=== PATIENT | female | born 1990 | race Caucasian/White ===

== ENCOUNTER 2017-11-25 13:33 | Emergency (ER) | payer MEDICAID, SELFPAY ==
[2017-11-25 13:33] VITALS: BP 163/107; PULSE 103; RESP 18; TEMP 36.4; O2SAT 96; BMI 65.2
[2017-11-25 13:51] LABS: Bedside Glucose 405 mg/dL (70-110)
[2017-11-25 14:34] LABS: Absolute Lymphocyte Count 1.82 X10^3/ul (0.83-4.51); Absolute Neutrophil Count 5.8 X10^3/uL (2.0-7.7); Basophil# 0.04 X10^3/uL; Basophil% 0.5 % (0-1); Eosinophil# 0.07 X10^3/uL; Eosinophils% 0.8 % (0-5); Hematocrit 42.5 % (37-47); Hemoglobin 14.7 g/dl (12.0-15.0); Lymphocyte # 1.82 X10^3/ul (4.0); Lymphocyte % 21.9 % (19-41); Mean Corp Hgb Conc 34.6 g/gl (32-36); Mean Corpuscular Hgb 30.7 pg (27.0-32.0); Mean Corpuscular Volume 88.7 fL (81-99); Mean Platelet Vol. 11.6 fl (6.2-12.0); Monocyte# 0.58 X10^3/uL; Neutrophil # 5.78 X10^3/uL (2.7-7.7); Neutrophil % 69.6 % (47-70); Platelet Count 198 K/mm3 (150-450); Red Blood Count 4.79 M/mm3 (4.2-5.4); White Blood Count 8.3 K/mm3 (4.4-11.0)
[2017-11-25 14:37] LABS: POSITIVE COUNT NO; POSITIVE DIFFERENTIAL NO; POSITIVE MORPHOLOGY NO
[2017-11-25] MEDS: 0.9% Normal Saline 1,000 ML 1000 ML IV (14:39)
[2017-11-25] MEDS: Ondansetron 4 MG/2 ML Vial IV (14:39)
[2017-11-25 14:41] LABS: Blood Gas Specimen Type VEN; Time Given 1425; VBG BASE EXCESS 3 mmol/L (-1.0-3.5); VBG Bicarbonate 27 mmol/L (22-26); VBG Oxygen Content 28 mmol/L (23-33); VBG PO2 65 mmHg (25-40); VBG SO2 93 % (50-70); VBG pCO2 39.8 mmHg (41-51); VBG pH 7.44 (7.32-7.42)
[2017-11-25 14:46] LABS: Anion Gap 9 (5-15); BUN 11 mg/dL (7-18); BUN/Creat Ratio 12.5 RATIO (10-20); Calcium,Total 9.6 mg/dL (8.5-10.1); Chloride 98 mmol/L (98-107); Creatinine, Serum 0.88 mg/dL (0.55-1.02); EST Glomerular Filtration Rate 82 mL/min (>60); Est Glom Filt Rate - Afr Amer 99 mL/min (>60); Estimated Creatinine Clearance 86.41 ml/min; Glucose 396 mg/dL (74-106); Potassium 3.9 mmol/L (3.5-5.1); Sodium Level 135 mmol/L (136-145)
[2017-11-25 14:56] LABS: Mucous, Urine 0 SEEN /hpf (<or=2+); White Blood Cells 0 SEEN /hpf (0-5)
[2017-11-25 14:57] LABS: Color, Urine Yellow (Yellow); Glucose, Dipstick 1000 mg/dl (Normal); Ketone-Dipstick 5 mg/dl (Negative); Leukocyte Esterase-Dipstick 25 /ul (Negative); Nitrite-Dipstick Negative (Negative); Occult Blood-Urine 150 /ul (Negative); Protein-Dipstick 30 mg/dl (Negative); Urine Bilirubin Dipstick Negative (Negative); Urine Clarity Clear (Clear); Urine Urobilinogen Normal (Normal)
[2017-11-25 15:09] LABS: Bacteria RARE /hpf (None Seen); Red Blood Cells-Urine 5-10 SEEN /hpf (0-5)
[2017-11-25 15:10] LABS: Squamous Epithelial Cells - UA 0-5 SEEN /hpf (5-10)
[2017-11-25] MEDS: Dicyclomine 10 MG Capsule 20 MG PO (15:13)
--- NOTE | 2017-11-25 16:28 | ED.VISSUMM ---
- ER Visit Summary Date of Service: 11/25/17 Chief Complaint: Nausea, vomiting and diarrhea with reported temperature 102.0?F and polyuria, polydipsia and frequency. History of Present Illness: The patient is a 27 F with history of diabetes on pills and insulin presents with fever, nausea, vomiting diarrhea. She denies any ocular, visual auditory symptoms. She denies rhinorrhea, postnasal drainage sore throat. She denies cough or shortness of breath. She denies chest discomfort. She denies dysuria or urgency. She denies hematuria. She denies black or maroon colored stool. Does complain of generalized weakness. Past surgical history remarkable for cholecystectomy and hysterectomy. She had hysterectomy secondary to cancer. Physical Examination: Patient is morbidly obese with a BMI of 65.3. Blood pressure elevated 163/107. Heart rate is 137. HEENT exam is remarkable dry mucosa. Heart is rapid and regular without murmur, gallop or rub. Lungs are clear to auscultation. Abdomen is soft nontender with slightly increased bowel sounds. She has no CVA tenderness noted. There is no skin lesions noted. Neuro exam is nonfocal. Please read written note for complete detail Test Results: See is normal. BMP is remarkable for glucose of 396 the normal CO2 and anion gap. Since patient was tachycardic and appeared tachypnic ABG was obtained which was unremarkable. UA reveals leukoesterase 25, blood 150, ketones 5 with 0 WBCs, 5-10 RBCs and no epithelial cells. There is 1+ bacteria however there is no nitrites or pyuria. Emergency Department Course and Treatment: Patient received 1 L of normal saline. I was informed after she attempted to drink water she is bit up the water. She did not vomit. She has not had any loose stools since she was here. She did receive Bentyl with no improvement. She reports no improvement with Zofran. Reglan is not available IVs since the hospital is out. Treatment Plan: Was reassessed at 1625. Her abdomen is benign. She complained of pain with depression of her skin 1-2 mm. She is crying with tears dripping down her face. Patient was informed since her blood work is unremarkable other than the elevated blood sugar for which she received insulin and her abdominal exam from a medical standpoint is benign the cause of her pain is unknown. She did not appear surprised when she was informed this. She has multiple visits for abdominal pain. Disposition: Discharged to home with prescription for Bentyl and follow-up with PCP Impression: 1. Abdominal pain with nausea, vomiting diarrhea 2. Sinus tachycardia documented on monitor 3. Mild dehydration 4. Hyperglycemia in known diabetic This note was generated with [employer] dictation software. It may contain incorrect words, spelling, and punctuation that were not noted in review of the chart prior to signing ED Disposition - Plan for ED Patient: Disposition: Home or Assisted Living Chief Complaint: Abd Pain Instructions: ED Abdominal Pain Unkn Cause, ED Vomiting Diarrhea Nonspecific Ad, ED Hyperglycemia Diabetic Prescriptions: Dicyclomine HCl [Bentyl] 20 mg PO ACHS #10 cap Referrals: Alejandra Cruz PA [Primary Care Provider] - 1-2 Days if not improving
--- NOTE | 2017-11-25 16:35 | ED.DCSUM_ITS ---
- ER Visit Summary Date of Service: 11/25/17 Chief Complaint: Nausea, vomiting and diarrhea with reported temperature 102.0? F and polyuria, polydipsia and frequency. History of Present Illness: The patient is a 27 F with history of diabetes on pills and insulin presents with fever, nausea, vomiting diarrhea. She denies any ocular, visual auditory symptoms. She denies rhinorrhea, postnasal drainage sore throat. She denies cough or shortness of breath. She denies chest discomfort. She denies dysuria or urgency. She denies hematuria. She denies black or maroon colored stool. Does complain of generalized weakness. Past surgical history remarkable for cholecystectomy and hysterectomy. She had hysterectomy secondary to cancer. Physical Examination: Patient is morbidly obese with a BMI of 65.3. Blood pressure elevated 163/107. Heart rate is 137. HEENT exam is remarkable dry mucosa. Heart is rapid and regular without murmur, gallop or rub. Lungs are clear to auscultation. Abdomen is soft nontender with slightly increased bowel sounds. She has no CVA tenderness noted. There is no skin lesions noted. Neuro exam is nonfocal. Please read written note for complete detail Test Results: See is normal. BMP is remarkable for glucose of 396 the normal CO2 and anion gap. Since patient was tachycardic and appeared tachypnic ABG was obtained which was unremarkable. UA reveals leukoesterase 25, blood 150, ketones 5 with 0 WBCs, 5-10 RBCs and no epithelial cells. There is 1+ bacteria however there is no nitrites or pyuria. Emergency Department Course and Treatment: Patient received 1 L of normal saline. I was informed after she attempted to drink water she is bit up the water. She did not vomit. She has not had any loose stools since she was here. She did receive Bentyl with no improvement. She reports no improvement with Zofran. Reglan is not available IVs since the hospital is out. Treatment Plan: Was reassessed at 1625. Her abdomen is benign. She complained of pain with depression of her skin 1-2 mm. She is crying with tears dripping down her face. Patient was informed since her blood work is unremarkable other than the elevated blood sugar for which she received insulin and her abdominal exam from a medical standpoint is benign the cause of her pain is unknown. She did not appear surprised when she was informed this. She has multiple visits for abdominal pain. Disposition: Discharged to home with prescription for Bentyl and follow-up with PCP Impression: 1. Abdominal pain with nausea, vomiting diarrhea 2. Sinus tachycardia documented on monitor 3. Mild dehydration 4. Hyperglycemia in known diabetic This note was generated with [employer] dictation software. It may contain incorrect words, spelling, and punctuation that were not noted in review of the chart prior to signing ED Disposition - Plan for ED Patient: Disposition: Home or Assisted Living Chief Complaint: Abd Pain Instructions: ED Abdominal Pain Unkn Cause, ED Vomiting Diarrhea Nonspecific Ad , ED Hyperglycemia Diabetic Prescriptions: Dicyclomine HCl [Bentyl] 20 mg PO ACHS #10 cap Referrals: Alejandra Cruz PA [Primary Care Provider] - 1-2 Days if not improving
[2017-11-25 16:55] VITALS: BP 148/85; PULSE 92; RESP 16; O2SAT 98
== END 2017-11-25 16:57 | disposition home or self-care (01) ==
PROVIDERS: Emergency Provider Emergency Medicine; Family Provider Physician Assistant; PCP Physician Assistant
DX: R10.9 Unspecified abdominal pain (principal); R11.2 Nausea with vomiting, unspecified; R19.7 Diarrhea, unspecified; R00.0 Tachycardia, unspecified; E86.0 Dehydration; E11.65 Type 2 diabetes mellitus with hyperglycemia; J34.89 Other specified disorders of nose and nasal sinuses; R50.9 Fever, unspecified; R21 Rash and other nonspecific skin eruption; F32.9 Major depressive disorder, single episode, unspecified; Z85.9 Personal history of malignant neoplasm, unspecified; E66.01 Morbid (severe) obesity due to excess calories; Z68.44 Body mass index [BMI] 60.0-69.9, adult; Z90.49 Acquired absence of other specified parts of digestive tract; Z90.710 Acquired absence of both cervix and uterus; Z87.891 Personal history of nicotine dependence; Z79.84 Long term (current) use of oral hypoglycemic drugs; Z79.899 Other long term (current) drug therapy
CPT/HCPCS: 80048; 81001; 82803; 82962; 85025; 96361; 96372; 96374; 99284; J7030; A4216; J2405

== ENCOUNTER 2017-12-21 16:33 | Emergency (ER) | payer MEDICAID, SELFPAY ==
[2017-12-21 16:35] VITALS: BP 162/94; PULSE 92; RESP 17; TEMP 37.1; O2SAT 93; BMI 65.0
[2017-12-21 16:46] LABS: Bedside Glucose 429 mg/dL (70-110)
[2017-12-21 17:16] LABS: Bacteria 0 SEEN /hpf (None Seen); Mucous, Urine 0 SEEN /hpf (<or=2+); Red Blood Cells-Urine 0 SEEN /hpf (0-5); White Blood Cells 0 SEEN /hpf (0-5)
[2017-12-21 17:25] LABS: Color, Urine Yellow (Yellow); Glucose, Dipstick 1000 mg/dl (Normal); Ketone-Dipstick 15 mg/dl (Negative); Leukocyte Esterase-Dipstick Negative /ul (Negative); Nitrite-Dipstick Negative (Negative); Occult Blood-Urine Negative /ul (Negative); Protein-Dipstick Negative (Negative); Urine Bilirubin Dipstick Negative (Negative); Urine Clarity Sl. Cloudy (Clear); Urine Urobilinogen Normal (Normal)
--- NOTE | 2017-12-21 17:36 | CT_ITS ---
STUDY: CT ABDOMEN AND PELVIS WITHOUT CONTRAST REASON FOR EXAM: Female, 27 years old. Left-sided abdominal pain and nausea. RADIATION DOSAGE (If Supplied By Facility): CTDIvol = ( 24.18 ) mGy, DLP = ( 1389.41 ) mGycm TECHNIQUE: Transaxial images were obtained from the dome of the diaphragm to the symphysis pubis without oral contrast, and without intravenous contrast. Sagittal and coronal images were reconstructed. Individualized dose optimization techniques were used for this CT. COMPARISON: CT of the abdomen and pelvis dated October 27, 2017. FINDINGS: The visualized lung bases are unremarkable. The visualized portions of the heart are within normal limits. There is decreased attenuation of the liver consistent with steatosis. There are surgical clips in the gallbladder fossa consistent with a prior cholecystectomy. There are multiple benign calcified granulomata of the spleen. There is diffuse atrophy of the pancreas. Normal bilateral adrenal glands. Normal right kidney. Normal left kidney. Normal visualized stomach. There is no evidence for dilated bowel, ascites or pneumoperitoneum. Small bowel has a grossly normal appearance. There are multiple colonic diverticula consistent with diverticulosis. There is non-visualization of the appendix. Normal abdominal aorta. Normal inferior vena cava. Normal retroperitoneum. Normal urinary bladder. There is absence of the uterus consistent with a prior hysterectomy. There is a small umbilical hernia containing fat. There is a wedge-shaped deformity of T11 that may result sequela multiple old compression fracture. There is multilevel degenerative disc disease of lower thoracic spine. CT/Abdomen/Pelvis without Cont IMPRESSION: 1. No CT evidence of acute intra-abdominal disease. 2. Hepatic steatosis. 3. Cholecystectomy and hysterectomy. 4. Mild colonic diverticulosis. Electronically Signed: Aurea Garrison MD at 18:52 EST , Service support ,
[2017-12-21 17:38] LABS: Absolute Lymphocyte Count 1.64 X10^3/ul (0.83-4.51); Basophil# 0.02 X10^3/uL; Basophil% 0.3 % (0-1); Eosinophil# 0.05 X10^3/uL; Eosinophils% 0.7 % (0-5); Hematocrit 43.6 % (37-47); Hemoglobin 14.7 g/dl (12.0-15.0); Lymphocyte # 1.64 X10^3/ul (4.0); Lymphocyte % 22.8 % (19-41); Mean Corp Hgb Conc 33.7 g/gl (32-36); Mean Corpuscular Hgb 30.4 pg (27.0-32.0); Mean Corpuscular Volume 90.1 fL (81-99); Mean Platelet Vol. 11.4 fl (6.2-12.0); Monocyte# 0.48 X10^3/uL; Monocyte% 6.7 % (0-10); Neutrophil # 4.98 X10^3/uL (2.7-7.7); Neutrophil % 69.2 % (47-70); Platelet Count 199 K/mm3 (150-450); RBC Distribution Width CV 13.3 % (11.6-14.6); RBC Distribution Width SD 43.4 fl (35.1-43.9); Red Blood Count 4.84 M/mm3 (4.2-5.4); White Blood Count 7.2 K/mm3 (4.4-11.0)
[2017-12-21] MEDS: 0.9% Normal Saline 1,000 ML 999 ML IV (17:38)
[2017-12-21 17:39] LABS: POSITIVE COUNT NO; POSITIVE DIFFERENTIAL NO; POSITIVE MORPHOLOGY NO
--- NOTE | 2017-12-21 17:39 | ED.DCSUM_ITS ---
- ER Visit Summary Date of Service: 12/21/17 Chief Complaint: Hyperglycemia History of Present Illness: The patient is a 27 F presents with elevated glucose of 530 at home. Diabetes diagnosis 2 months ago was placed on metformin , this has been increased since then to 1000 milligrams twice daily. States been there with left-sided abdominal pain for the past month with nausea. No vomiting. Have diarrhea since being on metformin. No recent antibiotics. Subjective fevers. No urinary symptoms. History of hysterectomy. Saw oncologist today, had a CT ordered for abdomen however due to her symptoms she came here. Complains of polydipsia and polyuria. Physical Examination: General: Alert and oriented ?3, obese female, no acute distress HEENT: Normocephalic, atraumatic. Moist mucosa membranes Neck: supple, nontender. Cardiovascular: Regular rate and rhythm, no murmurs Respiratory: Normal breath sounds, symmetric, no distress Abdomen: Soft, mild left-sided tenderness with no guarding or rebound, nondistended Extremities: Nontender, no edema, pulses intact ?4 Neuro: no focal neurological deficits. Test Results: BG T: 429. Labs noted glucose 421, anion gap was 11. UA noted glucose and ketones. Ketones small. CT abdomen and pelvis: No acute process. Old T11 thoracic fracture. Emergency Department Course and Treatment: Patient nontoxic. Glucose 429, recent diabetic. No vomiting. However due to abdominal pain, workup initiated. She given IV fluids, Zofran, fentanyl for pain control. CT shows no acute process. Glucose 421 in the lab, small ketones, however anion gap was normal. There was ketones in her urine. She is given fluids. She is trying oral fluids at home. Due to normal gap, not likely DKA. Discussed patient continue oral hydration. She does given 10 units of insulin, she given Tylenol for additional pain control. Should continue this at home. She will call her PCP office outpatient reevaluation further treatment for her hyperglycemia. Unknown etiology for abdominal pain at this time. Treatment Plan: [] Disposition: Discharge Impression: 1. Hyperglycemia with history of diabetes 2. Left-sided abdominal pain This note was generated with [employer] dictation software. It may contain incorrect words, spelling, and punctuation that were not noted in review of the chart prior to signing ED Disposition - Plan for ED Patient: Disposition: Home or Assisted Living Chief Complaint: Hyperglycemia Diagnosis: Hyperglycemia, Abdominal pain Instructions: ED Hyperglycemia Diabetic, ED Abdominal Pain Unkn Cause Referrals: Alejandra Cruz PA [Primary Care Provider] - 2 Days
[2017-12-21 17:42] VITALS: BP 165/70; PULSE 90; RESP 14; O2SAT 95
[2017-12-21 17:44] LABS: Anion Gap 11 (5-15); BUN 12 mg/dL (7-18); BUN/Creat Ratio 16.6 RATIO (10-20); Calcium,Total 9.2 mg/dL (8.5-10.1); Chloride 99 mmol/L (98-107); Creatinine, Serum 0.72 mg/dL (0.55-1.02); EST Glomerular Filtration Rate 102 mL/min (>60); Est Glom Filt Rate - Afr Amer 124 mL/min (>60); Estimated Creatinine Clearance 105.61 ml/min; Glucose 427 mg/dL (74-106); Sodium Level 134 mmol/L (136-145)
[2017-12-21 17:45] LABS: Squamous Epithelial Cells - UA 0-5 SEEN /hpf (5-10)
[2017-12-21] MEDS: fentaNYL 100 MCG/2 ML Ampul 50 MCG IV (17:46)
[2017-12-21] MEDS: Ondansetron 4 MG/2 ML Vial IV (17:46)
[2017-12-21 18:17] LABS: Pregnancy, Serum, hCG Quali. NEGATIVE Negative (0-9 Nonpreg)
[2017-12-21 18:27] VITALS: BP 125/51; PULSE 77; RESP 15; O2SAT 96
[2017-12-21 19:32] VITALS: BP 145/80; PULSE 85; RESP 14; O2SAT 96
[2017-12-21] MEDS: Acetaminophen 500 MG Tablet 1000 MG PO (19:39)
[2017-12-21 19:44] VITALS: BP 149/80; PULSE 82; RESP 14; O2SAT 96
== END 2017-12-21 19:48 | disposition home or self-care (01) ==
PROVIDERS: Emergency Provider Emergency Medicine; Family Provider Physician Assistant; PCP Physician Assistant
DX: E11.65 Type 2 diabetes mellitus with hyperglycemia (principal); R10.9 Unspecified abdominal pain; E66.9 Obesity, unspecified; K21.9 Gastro-esophageal reflux disease without esophagitis; Z86.79 Personal history of other diseases of the circulatory system; Z86.39 Personal history of other endocrine, nutritional and metabolic disease; Z85.42 Personal history of malignant neoplasm of other parts of uterus; Z90.710 Acquired absence of both cervix and uterus; Z79.84 Long term (current) use of oral hypoglycemic drugs; Z79.899 Other long term (current) drug therapy
CPT/HCPCS: 74176; 80048; 81001; 82009; 82962; 84703; 85025; 96361; 96372; 96374; 96375; 99284; J7030; A4216; J2405

== ENCOUNTER 2018-01-10 16:47 | Observation (INO) | payer MEDICAID, SELFPAY ==
--- NOTE | 2018-01-10 | CYSPIN_PTH ---
PATIENT: EVA SAUCEDO LOC: [facility] U#:[id number] AGE/SX: 27/F ROOM: [facility]312 RE01/10/[address]: Dr. Ramin Black MD : 1990 BED: 1 DIS: 01/16/2018 SPEC #: [id number] RECD: 01/11/18 08:10 STATUS: CLAIRE FLORY #: [id number] ALEXEY: 01/10/18 00:[address]: Augustine Stevenson DEPT: CYTOLOGY RECD BY: Stewart Walls ENTERED: 01/11/18 08:10 SP TYPE: CYSPIN FL OTHR DR: MD Alejandra Diaz PA Tissues: Cerebrospinal Fluid Procedures: Pap Stain (control) Special Stain Group II Cytospin Fluid HEADER OPERATION: Lumbar puncture PRE-OP DIAGNOSIS: Fever and headache TISSUE SUBMITTED: Cerebrospinal fluid for cytology DIAGNOSIS CYTOLOGY Cerebrospinal fluid for cytology (cytospins): Negative for malignant cells. AM:andreina 01/12/18 COMMENT The specimen is virtually acellular and contains blood. Clinical correlation is suggested. CYTOLOGY STUDY Slides are reviewed. CYTOLOGY GROSS Received is 1 ml of clear fluid labeled with the patient's name and and designated per the requisition as CSF. Submitted for cytology preparation. / 01/11/18 TC:5 CPT: 10880
[2018-01-10 16:48] VITALS: BP 130/91; PULSE 111; RESP 18; TEMP 36.9; O2SAT 97; BMI 58.6
--- NOTE | 2018-01-10 17:12 | RAD_ITS ---
STUDY: X-RAY CHEST REASON FOR EXAM: Female, 27 years old. Chest pain, headache. TECHNIQUE: Single AP portable upright view of the chest. The patient is in a lordotic position. COMPARISON: Frontal chest x-ray included with acute abdomen series April 21, 2017. FINDINGS: The lungs are clear and expanded. There is no demonstrated pleural abnormality. Normal size heart. Normal mediastinum and dorian. Normal visualized pulmonary arteries. Normal visualized aortic arch and descending thoracic aorta. Normal visualized thoracic spine. Normal visualized ribs, clavicles, and shoulders. The patient is morbidly obese. There is no demonstrated abnormality of the visualized soft tissue structures of the upper abdomen. RAD/Chest 1 View (Portable) IMPRESSION: No acute cardiopulmonary disease. Electronically Signed: Martin Vega MD at 18:12 EDT , Service support ,
[2018-01-10] MEDS: 0.9% Normal Saline 1,000 ML 1000 ML IV (18:10)
[2018-01-10] MEDS: HYDROmorphone 1 MG/ML Syringe 0.5 MG IV (18:11)
[2018-01-10] MEDS: Ondansetron 4 MG/2 ML Vial IV (18:11)
[2018-01-10 18:32] LABS: Absolute Lymphocyte Count 2.24 X10^3/ul (0.83-4.51); Absolute Neutrophil Count 6.8 X10^3/uL (2.0-7.7); Basophil# 0.02 X10^3/uL; Basophil% 0.2 % (0-1); Eosinophil# 0.04 X10^3/uL; Eosinophils% 0.4 % (0-5); Hematocrit 47.4 % (37-47); Hemoglobin 15.7 g/dl (12.0-15.0); Lymphocyte # 2.24 X10^3/ul (4.0); Lymphocyte % 23.1 % (19-41); Mean Corp Hgb Conc 33.1 g/gl (32-36); Mean Corpuscular Hgb 30.7 pg (27.0-32.0); Mean Corpuscular Volume 92.8 fL (81-99); Mean Platelet Vol. 11.4 fl (6.2-12.0); Monocyte# 0.59 X10^3/uL; Monocyte% 6.1 % (0-10); Neutrophil # 6.79 X10^3/uL (2.7-7.7); Neutrophil % 69.9 % (47-70); Platelet Count 176 K/mm3 (150-450); RBC Distribution Width CV 13.3 % (11.6-14.6); RBC Distribution Width SD 45.2 fl (35.1-43.9); Red Blood Count 5.11 M/mm3 (4.2-5.4); White Blood Count 9.7 K/mm3 (4.4-11.0)
[2018-01-10 18:33] LABS: POSITIVE COUNT NO; POSITIVE DIFFERENTIAL NO; POSITIVE MORPHOLOGY NO
[2018-01-10 18:44] LABS: Anion Gap 10 (5-15); BUN 9 mg/dL (7-18); BUN/Creat Ratio 14.2 RATIO (10-20); Calcium,Total 8.9 mg/dL (8.5-10.1); Chloride 104 mmol/L (98-107); Creatinine, Serum 0.63 mg/dL (0.55-1.02); EST Glomerular Filtration Rate 119 mL/min (>60); Est Glom Filt Rate - Afr Amer 144 mL/min (>60); Estimated Creatinine Clearance 130.44 ml/min; Glucose 246 mg/dL (74-106); Potassium 3.6 mmol/L (3.5-5.1); Sodium Level 137 mmol/L (136-145)
--- NOTE | 2018-01-10 18:52 | ED.RN ---
DR BLEVINS NOTIFIED OF LACTIC ACID OF 2.0
[2018-01-10 20:08] LABS: Bacteria 0 SEEN /hpf (None Seen); Mucous, Urine 0 SEEN /hpf (<or=2+); White Blood Cells 0 SEEN /hpf (0-5)
[2018-01-10 20:10] LABS: Color, Urine Yellow (Yellow); Glucose, Dipstick 1000 mg/dl (Normal); Ketone-Dipstick 5 mg/dl (Negative); Leukocyte Esterase-Dipstick Negative /ul (Negative); Nitrite-Dipstick Negative (Negative); Occult Blood-Urine 10 /ul (Negative); Protein-Dipstick 30 mg/dl (Negative); Specific Gravity, Urine 1.025 (1.002-1.030); Urine Bilirubin Dipstick Negative (Negative); Urine Clarity Clear (Clear); Urine Urobilinogen Normal (Normal)
[2018-01-10 20:18] LABS: Red Blood Cells-Urine 0-5 SEEN /hpf (0-5); Squamous Epithelial Cells - UA 0-5 SEEN /hpf (5-10)
[2018-01-10] MEDS: HYDROmorphone 1 MG/ML Syringe IV (20:20)
[2018-01-10 20:21] VITALS: BP 144/127; PULSE 119; RESP 20; TEMP 37.2; O2SAT 94
--- NOTE | 2018-01-10 20:24 | CT_ITS ---
STUDY: CT BRAIN WITHOUT CONTRAST REASON FOR EXAM: Female, 27 years old. Headache. Fever. RADIATION DOSAGE (If Supplied By Facility): CTDIvol = ( 44.99 ) mGy, DLP = ( 796.11 ) mGycm TECHNIQUE: Transaxial CT imaging of the brain was performed without administration of intravenous contrast material. Individualized dose optimization techniques were used for this CT. COMPARISON: 02/21/2017 FINDINGS: There is no acute bleed or infarct. There are normal white matter tracts. The ventricles are normal in configuration. There is no hydrocephalus. There is near total opacification of the right maxillary sinus. There is partial opacification of the left sphenoid sinus and mild mucosal hypertrophy in the right ethmoid sinus and left maxillary sinus. The mastoid air cells are well aerated. There is no skull fracture. CT/Brain/Head without Contrast IMPRESSION: No acute intracranial abnormality. Sinusitis. Electronically Signed: Hima Mcclain, at 20:57 EDT Tel , Service support ,
[2018-01-10 21:39] LABS: Cytology, Body Fluid / CSF SEE PATHOLOGY REPORT
[2018-01-10 22:01] LABS: Glucose Spinal Fluid 129 mg/dL (40-75)
[2018-01-10 22:12] VITALS: BP 144/100; PULSE 100; RESP 16; O2SAT 94
--- NOTE | 2018-01-10 22:14 | ED.RN ---
lab called with positive results. CSF fluid positive for gram positive cocci. Dr. Tanner made aware. no new orders at this time
[2018-01-10 22:22] LABS: Appearance CSF (character) CLEAR (Clear); Auto B Fluid Analyzer BKGD Ct COUNTS W/IN LIMITS (W/IN LIMITS); Body Fluid Mononuclear WBC # 0.001 10^3/uL; CSF Color COLORLESS (Colorless); Tested Tube # 4; Total Cell Count CSF 0.001 10^3/uL (0.000-0.000); White Count, CSF 0.001 10^3/uL (0.000-0.000)
[2018-01-10 22:23] LABS: Reflex Lactate? Y
[2018-01-10 22:24] LABS: RBC Count, Spinal Fluid 4 /mm-3 (None seen)
--- NOTE | 2018-01-10 22:27 | ED.VISSUMM ---
- ER Visit Summary Date of Service: 01/10/18 Chief Complaint: [Fever and headache] History of Present Illness: The patient is a 27 F [presents to the emergency department from primary care physician's office. Patient apparently started 4 days ago with cough and back and neck pain. Patient at times coughing up green phlegm. Patient also a few days ago noticed rash on her legs. Patient was exposed to her niece who had similar upper respiratory type infection. Patient was noted in the office today to have a temperature of 102.9. Patient complains of worsening headache with standing and walking.] Physical Examination: [HEENT-PERRLA, EOMI. Cranial nerves II through XII grossly intact. TMs clear. Mucous membranes moist. No adenopathy. Normal pharyngeal erythema. No trismus. Patient has no nuchal rigidity on exam. Negative Kernig's and negative Brudzinski sign. Cardiovascular-regular rate and rhythm without murmur or ectopy Lungs-clear to auscultation, chest wall stable without crepitus or subcu emphysema Abdomen-normoactive bowel sounds, soft, nontender, no rebound or rigidity, no peritoneal signs. Extremities-intact ?4, normal range of motion, normal pulses, atraumatic]. Patient has diffuse erythema to the medial aspect of both lower extremities from the ankles to the groins. Test Results: [CBC with differential obtained showed a normal white blood cell count. Chemistries unremarkable. Glucose was 246. Urinalysis was normal. Lactate was 2.0. Influenza screen was negative and strep screen was negative. CT scan of the brain without contrast showed right maxillary sinusitis otherwise nothing acute. Cerebrospinal fluid showed glucose of 129 and protein of 27. Patient had 1 WBC. Gram stain was positive for gram-positive cocci.] CT scan of the brain showed right maxillary sinusitis. Emergency Department Course and Treatment: [Patient was consented for lumbar puncture. Risks and benefits explained. Patient was placed in the seated position with trunk bent over a Laureano tray. Area of the L1-L2 interspace sterilely draped and prepped cleansed with Betadine. Skin was anesthetized with 1% lidocaine total of 5 cc. Using a 12.5 cm spinal needle was able to advance it and obtain cerebrospinal fluid.] Initial attempt with the smaller spinal needle was unsuccessful given patient's large body habitus. Cerebrospinal fluid collected in all 4 tubes and appeared clear. Needle and stylette removed as a unit and of Band-Aid applied to the skin. Patient was allowed to lay flat for 20 minutes. Treatment Plan: [Patient was started on Rocephin and vancomycin IV. Patient was medicated with Dilaudid and Phenergan for her pain.] Given the findings of the CSF seems to be at odds with bacterial meningitis diagnosis and given that Gram stain was positive I asked the lab to attempt Gram stain on a another tube. Disposition: [Admit] Impression: [Fever Cellulitis bilateral lower extremities Cephalgia-rule out meningitis Sinusitis] This note was generated with [employer] dictation software. It may contain incorrect words, spelling, and punctuation that were not noted in review of the chart prior to signing ED Disposition - Plan for ED Patient: Chief Complaint: Headache Referrals: Alejandra Cruz PA [Primary Care Provider] -
--- NOTE | 2018-01-10 22:27 | ED.RN ---
Called lab for them to run the gram stain on any other test tube New order placed.
[2018-01-10] MEDS: proMETHazine 25 MG/ML Syringe 12.5 MG IV (22:32)
[2018-01-10 22:51] VITALS: BP 140/98; PULSE 100; RESP 20; TEMP 37.3; O2SAT 94
--- NOTE | 2018-01-10 22:57 | PCM.HP.STD ---
Problem List (1) Meningitis Status: Acute (2) Headache Status: Acute (3) Neck pain Status: Acute (4) Endometrial cancer Status: Chronic (5) DM2 (diabetes mellitus, type 2) Status: Chronic (6) Morbid obesity Status: Chronic (7) Hypertension Status: Chronic (8) Hyperlipidemia Status: Chronic Qualifiers: Hyperlipidemia type: unspecified Qualified Code(s): E78.5 - Hyperlipidemia, unspecified (9) Depression Status: Chronic History of Present Illness Date of Admission: 01/10/18 Chief Complaint: headache. neck pain. The patient is a 27 year old F Zentz to the emergency room from her primary care physician's office. Patient has been complaining of 4 days of cough and back and neck pain with associated headache posteriorly. Patient has numerous sick family members. In the emergency room, patient was afebrile but did have a temperature in the office of 102.9 Fahrenheit. A lumbar puncture was performed and actually was successful. The initial workup from the lumbar puncture studies showed very low white blood cell count and but did show gram-positive cocci on the Gram stain. Patient is being admitted for possible meningitis. Patient in the emergency room did receive vancomycin and ceftriaxone. Patient did receive several doses of IV Dilaudid for her headache. [] Past Medical History Past Medical History (Chronic Problems): Chronic Problems Endometrial cancer (Chronic) DM2 (diabetes mellitus, type 2) (Chronic) Morbid obesity (Chronic) Hypertension (Chronic) Hyperlipidemia (Chronic) Depression (Chronic) Radiation (Chronic) Uterine cancer (Chronic) Allergies ibuprofen Allergy (Verified 01/10/18 16:48) Laryngospasms ketorolac [From Toradol] Allergy (Verified 01/10/18 16:48) Hives morphine Allergy (Verified 01/10/18 16:48) Hives naproxen Allergy (Verified 01/10/18 16:48) Laryngospasms Home Medications: Ambulatory Orders Medication Instructions Recorded Clonazepam [Klonopin] 0.5 mg PO TID 10/22/16 Sertraline HCl [Zoloft] 200 mg PO DAILY 10/22/16 Methylphenidate HCl [Ritalin] 10 mg PO BID 12/29/16 Omeprazole [Prilosec] 10 mg PO DAILY 02/21/17 Ondansetron [Zofran Odt] 4 mg PO Q8H PRN PRN #10 tablet 07/19/17 Dicyclomine HCl [Bentyl] 10 mg PO TIDAC PRN #20 capsule 09/15/17 Metformin HCl [Glucophage] 500 mg PO BIDCM #60 tab 10/27/17 Dicyclomine HCl [Bentyl] 20 mg PO ACHS #10 cap 11/25/17 Atorvastatin Calcium [Lipitor] 10 mg PO QHS 01/10/18 Lisinopril [Prinivil] 5 mg PO DAILY 01/10/18 Surgical History: hysterectomy, - - hysteroscopy, ovarian moving Psychiatric History: Depression 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 Denies: Sinus Congestion, Sinus Drainage Cardiovascular: Denies: Chest Pain, Edema Respiratory: Reports: Cough. Denies: Shortness of Breath Gastrointestinal: Reports: Abdominal Pain, Nausea, Vomiting. Denies: Diarrhea Genitourinary: Denies: Dysuria Musculoskeletal: Denies: Joint Pain, Joint Tenderness Skin: Reports: Rash - On lower extremities Neurological: Reports: Headaches. Denies: Blurred vision, Double vision, Slurred speech Psychiatric: Reports: Depression. Denies: Anxiety Endocrine: Denies: Change in Body Habitus, Heat/ Cold Intolerance Hematologic/ Lymphatic: Denies: Easy Bruising, Easy Bleeding, Hx of blood clot VTE Information - Inpt Only VTE Present on Admission: No VTE Pharm Prophylaxis ordered?: Yes Patient Problems: Active and Suspected Problems Meningitis (Acute) Headache (Acute) Neck pain (Acute) - Physical Exam General: Alert, Cooperative, - - Crying with her eyes covered with a bed sheet. HEENT: Atraumatic, PERRLA, EOMI, Normocephalic, - - No scleral icterus Oral: Moist Mucosa, No Gingival or Mucosal Lesions/ Ulcerations, - - Mallampati stage IV Neck: No Nodes, Thyroid Normal Size and Texture Lungs: Clear to auscultation, Normal air movement, No rhonchi, No wheeze Cardiovascular: Regular rate, Regular Rhythm, Normal S1, Normal S2, No murmurs Abdomen: Bowel Sounds Present, Soft, Non Tender, Non-Distended, No Hepato-splenomegaly, Obese Extremities: No edema, No Calf Tenderness Skin: No breakdown, - - Macular rash on the medial and posterior calves bilaterally. I do not appreciate cellulitis. Musculoskeletal: No Tenderness to Palpation of Joints or Extremities, No Muscle Wasting Neurological: Cranial nerves II-XII grossly intact, Neuro grossly intact Psych/Mental Status: Appropriate, Anxious Vital Signs Temp Pulse Resp BP Pulse Ox 37.3 C H 100 20 H 140/98 H 94 01/10/18 22:51 01/10/18 22:51 01/10/18 22:51 01/10/18 22:51 01/10/18 22:51 Oxygen Delivery Method Room Air Weight: 169.8 kg Body Mass Index (BMI) 58.6 Finger Stick Blood Glucose 429 Microbiology Past 72 Hours 01/10/18 21:27 Gram Stain - Preliminary Csf, Spinal Fluid 01/10/18 17:50 Group A Streptococcus Rapid Screen - Preliminary Mucosa - Throat 01/10/18 17:20 Influenza Types A,B Direct FA (YANNA) - Final Mucosa - Nasopharyngeal Laboratory Tests Past 24 Hrs 01/10/18 01/10/18 01/10/18 18:18 18:18 18:18 WBC 9.7 RBC 5.11 Hgb 15.7 H Hct 47.4 H MCV 92.8 MCH 30.7 MCHC 33.1 RDW 13.3 RDW Differential 45.2 H Plt Count 176 MPV 11.4 Immature Gran % (Auto) 0.300 Neut % (Auto) 69.9 Lymph % (Auto) 23.1 [place] % (Auto) 6.1 Eos % (Auto) 0.4 Baso % (Auto) 0.2 Absolute Neuts (auto) 6.8 Absolute Lymphs (auto) 2.24 Total Counted Not Reportable Sodium 137 Potassium 3.6 Chloride 104 Carbon Dioxide 23.0 Anion Gap 10 BUN 9 Creatinine 0.63 Estim Creat Clear Calc 130.44 Est GFR (MDRD) Af Amer 144 Est GFR (MDRD) Non-Af 119 BUN/Creatinine Ratio 14.2 Glucose 246 H Lactic Acid 2.0 Calcium 8.9 Urine Color Urine Clarity Urine pH Ur Specific [place] Urine Protein Urine Glucose (UA) Urine Ketones Urine Occult Blood Urine Nitrite Urine Bilirubin Urine Urobilinogen Ur Leukocyte Esterase Urine RBC Urine WBC Ur Squamous Epith Cells Urine Bacteria Urine Mucus Fld Polynuclear WBCs # Fld Polynuclear WBCs % Fluid Mononuclear WBCs Fld Mononuclear WBCs % CSF Appearance CSF Color CSF WBC CSF RBC CSF Cell Count Tube # CSF Total Cell Counted CSF Comment CSF Glucose CSF Total Protein Enterovirus RNA (PCR) Miscellaneous Cytology 01/10/18 01/10/18 01/10/18 19:55 21:27 21:27 WBC RBC Hgb Hct MCV MCH MCHC RDW RDW Differential Plt Count MPV Immature Gran % (Auto) Neut % (Auto) Lymph % (Auto) [place] % (Auto) Eos % (Auto) Baso % (Auto) Absolute Neuts (auto) Absolute Lymphs (auto) Total Counted Sodium Potassium Chloride Carbon Dioxide Anion Gap BUN Creatinine Estim Creat Clear Calc Est GFR (MDRD) Af Amer Est GFR (MDRD) Non-Af BUN/Creatinine Ratio Glucose Lactic Acid Calcium Urine Color Yellow Urine Clarity Clear Urine pH 5.0 Ur Specific [place] 1.025 Urine Protein 30 H Urine Glucose (UA) 1000 H Urine Ketones 5 H Urine Occult Blood 10 H Urine Nitrite Negative Urine Bilirubin Negative Urine Urobilinogen Normal Ur Leukocyte Esterase Negative Urine RBC 0-5 SEEN Urine WBC 0 SEEN Ur Squamous Epith Cells 0-5 SEEN Urine Bacteria 0 SEEN Urine Mucus 0 SEEN Fld Polynuclear WBCs # Fld Polynuclear WBCs % Fluid Mononuclear WBCs Fld Mononuclear WBCs % CSF Appearance CSF Color CSF WBC CSF RBC CSF Cell Count Tube # CSF Total Cell Counted CSF Comment CSF Glucose CSF Total Protein Enterovirus RNA (PCR) Pending Miscellaneous Cytology Pending 01/10/18 01/10/18 01/10/18 21:27 21:27 21:27 WBC RBC Hgb Hct MCV MCH MCHC RDW RDW Differential Plt Count MPV Immature Gran % (Auto) Neut % (Auto) Lymph % (Auto) [place] % (Auto) Eos % (Auto) Baso % (Auto) Absolute Neuts (auto) Absolute Lymphs (auto) Total Counted Sodium Potassium Chloride Carbon Dioxide Anion Gap BUN Creatinine Estim Creat Clear Calc Est GFR (MDRD) Af Amer Est GFR (MDRD) Non-Af BUN/Creatinine Ratio Glucose Lactic Acid Calcium Urine Color Urine Clarity Urine pH Ur Specific [place] Urine Protein Urine Glucose (UA) Urine Ketones Urine Occult Blood Urine Nitrite Urine Bilirubin Urine Urobilinogen Ur Leukocyte Esterase Urine RBC Urine WBC Ur Squamous Epith Cells Urine Bacteria Urine Mucus Fld Polynuclear WBCs # 0.000 Fld Polynuclear WBCs % 0.0 Fluid Mononuclear WBCs 0.001 Fld Mononuclear WBCs % 100.0 CSF Appearance Pending CSF Color Pending CSF WBC 0.001 H CSF RBC Pending CSF Cell Count Tube # Pending CSF Total Cell Counted 0.001 H CSF Comment Pending CSF Glucose 129 H CSF Total Protein 27.0 Enterovirus RNA (PCR) Miscellaneous Cytology Clinical Impression(s) from Imaging Studies Chest X-Ray 01/10/18 17:12 IMPRESSION: No acute cardiopulmonary disease. Electronically Signed: Martin Vega MD at 18:12 EDT , Service support , Brain CT 01/10/18 20:24 IMPRESSION: No acute intracranial abnormality. Sinusitis. Electronically Signed: Hima Mcclain, at 20:57 EDT Tel , Service support , Assessment/Plan Active and Suspected Problems Meningitis (Acute) Headache (Acute) Neck pain (Acute) 1. Possible bacterial meningitis Discussed with Dr. Gongora, who stated that the lumbar puncture was successful but the needle was essentially placed at the hub when he performed lumbar puncture. Question if the Gram stain is a false positive. But none was given patient's fever headache and neck pain we will treat her empirically for possible meningitis. Patient will be on 2 g of ceftriaxone daily plus vancomycin. Additionally we will give the patient high-dose IV steroids not quite 0.15 mg/kg but for ideal body weight will continue with that. The patient will be on 10 mg every 6 hours for 8 doses. Patient also be on acyclovir in case this does have to be a viral etiology. I will consult infectious disease for input and see if they feel that this is an actual bacterial meningitis or not. In the meantime, will follow up on cultures and adjust antibiotics accordingly. 2. Headache Part related with the meningitis/encephalitis could be migraine variants. Tylenol and Toradol. Would recommend avoiding opiates as would likely lead to rebound headaches 3. Diabetes mellitus type 2 Elevated here and unsure if it is chronically elevated or not Given the fact the patient is can be on high-dose IV steroids and we will start her on a moderate dose sliding scale. Check an A1c 4. DVT prophylaxis with subcu Lovenox 5. Morbid obesity, hypertension, hyperlipidemia: Stable but overall complicating patient's overall care. Code Visit Inpatient E&M: 67221 Init Hosp L3
--- NOTE | 2018-01-10 23:07 | HP.PCM_ITS ---
Problem List (1) Meningitis Status: Acute (2) Headache Status: Acute (3) Neck pain Status: Acute (4) Endometrial cancer Status: Chronic (5) DM2 (diabetes mellitus, type 2) Status: Chronic (6) Morbid obesity Status: Chronic (7) Hypertension Status: Chronic (8) Hyperlipidemia Status: Chronic Qualifiers: Hyperlipidemia type: unspecified Qualified Code(s): E78.5 - Hyperlipidemia , unspecified (9) Depression Status: Chronic History of Present Illness Date of Admission: 01/10/18 Chief Complaint: headache. neck pain. The patient is a 27 year old F Zentz to the emergency room from her primary care physician's office. Patient has been complaining of 4 days of cough and back and neck pain with associated headache posteriorly. Patient has numerous sick family members. In the emergency room, patient was afebrile but did have a temperature in the office of 102.9 Fahrenheit. A lumbar puncture was performed and actually was successful. The initial workup from the lumbar puncture studies showed very low white blood cell count and but did show gram- positive cocci on the Gram stain. Patient is being admitted for possible meningitis. Patient in the emergency room did receive vancomycin and ceftriaxone. Patient did receive several doses of IV Dilaudid for her headache. [] Past Medical History Past Medical History (Chronic Problems): Chronic Problems Endometrial cancer (Chronic) DM2 (diabetes mellitus, type 2) (Chronic) Morbid obesity (Chronic) Hypertension (Chronic) Hyperlipidemia (Chronic) Depression (Chronic) Radiation (Chronic) Uterine cancer (Chronic) Allergies ibuprofen Allergy (Verified 01/10/18 16:48) Laryngospasms ketorolac [From Toradol] Allergy (Verified 01/10/18 16:48) Hives morphine Allergy (Verified 01/10/18 16:48) Hives naproxen Allergy (Verified 01/10/18 16:48) Laryngospasms Home Medications: Ambulatory Orders Medication Instructions Recorded Clonazepam [Klonopin] 0.5 mg PO TID 10/22/16 Sertraline HCl [Zoloft] 200 mg PO DAILY 10/22/16 Methylphenidate HCl [Ritalin] 10 mg PO BID 12/29/16 Omeprazole [Prilosec] 10 mg PO DAILY 02/21/17 Ondansetron [Zofran Odt] 4 mg PO Q8H PRN PRN #10 tablet 07/19/17 Dicyclomine HCl [Bentyl] 10 mg PO TIDAC PRN #20 capsule 09/15/17 Metformin HCl [Glucophage] 500 mg PO BIDCM #60 tab 10/27/17 Dicyclomine HCl [Bentyl] 20 mg PO ACHS #10 cap 11/25/17 Atorvastatin Calcium [Lipitor] 10 mg PO QHS 01/10/18 Lisinopril [Prinivil] 5 mg PO DAILY 01/10/18 Surgical History: hysterectomy, - - hysteroscopy, ovarian moving Psychiatric History: Depression 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 Denies: Sinus Congestion, Sinus Drainage Cardiovascular: Denies: Chest Pain, Edema Respiratory: Reports: Cough. Denies: Shortness of Breath Gastrointestinal: Reports: Abdominal Pain, Nausea, Vomiting. Denies: Diarrhea Genitourinary: Denies: Dysuria Musculoskeletal: Denies: Joint Pain, Joint Tenderness Skin: Reports: Rash - On lower extremities Neurological: Reports: Headaches. Denies: Blurred vision, Double vision, Slurred speech Psychiatric: Reports: Depression. Denies: Anxiety Endocrine: Denies: Change in Body Habitus, Heat/ Cold Intolerance Hematologic/ Lymphatic: Denies: Easy Bruising, Easy Bleeding, Hx of blood clot VTE Information - Inpt Only VTE Present on Admission: No VTE Pharm Prophylaxis ordered?: Yes Patient Problems: Active and Suspected Problems Meningitis (Acute) Headache (Acute) Neck pain (Acute) - Physical Exam General: Alert, Cooperative, - - Crying with her eyes covered with a bed sheet. HEENT: Atraumatic, PERRLA, EOMI, Normocephalic, - - No scleral icterus Oral: Moist Mucosa, No Gingival or Mucosal Lesions/ Ulcerations, - - Mallampati stage IV Neck: No Nodes, Thyroid Normal Size and Texture Lungs: Clear to auscultation, Normal air movement, No rhonchi, No wheeze Cardiovascular: Regular rate, Regular Rhythm, Normal S1, Normal S2, No murmurs Abdomen: Bowel Sounds Present, Soft, Non Tender, Non-Distended, No Hepato- splenomegaly, Obese Extremities: No edema, No Calf Tenderness Skin: No breakdown, - - Macular rash on the medial and posterior calves bilaterally. I do not appreciate cellulitis. Musculoskeletal: No Tenderness to Palpation of Joints or Extremities, No Muscle Wasting Neurological: Cranial nerves II-XII grossly intact, Neuro grossly intact Psych/Mental Status: Appropriate, Anxious Vital Signs Temp Pulse Resp BP Pulse Ox 37.3 C H 100 20 H 140/98 H 94 01/10/18 22:51 01/10/18 22:51 01/10/18 22:51 01/10/18 22:51 01/10/18 22:51 Oxygen Delivery Method Room Air Weight: 169.8 kg Body Mass Index (BMI) 58.6 Finger Stick Blood Glucose 429 Microbiology Past 72 Hours 01/10/18 21:27 Gram Stain - Preliminary Csf, Spinal Fluid 01/10/18 17:50 Group A Streptococcus Rapid Screen - Preliminary Mucosa - Throat 01/10/18 17:20 Influenza Types A,B Direct FA (YANNA) - Final Mucosa - Nasopharyngeal Laboratory Tests Past 24 Hrs 01/10/18 01/10/18 01/10/18 18:18 18:18 18:18 WBC 9.7 RBC 5.11 Hgb 15.7 H Hct 47.4 H MCV 92.8 MCH 30.7 MCHC 33.1 RDW 13.3 RDW Differential 45.2 H Plt Count 176 MPV 11.4 Immature Gran % (Auto) 0.300 Neut % (Auto) 69.9 Lymph % (Auto) 23.1 [place] % (Auto) 6.1 Eos % (Auto) 0.4 Baso % (Auto) 0.2 Absolute Neuts (auto) 6.8 Absolute Lymphs (auto) 2.24 Total Counted Not Reportable Sodium 137 Potassium 3.6 Chloride 104 Carbon Dioxide 23.0 Anion Gap 10 BUN 9 Creatinine 0.63 Estim Creat Clear Calc 130.44 Est GFR (MDRD) Af Amer 144 Est GFR (MDRD) Non-Af 119 BUN/Creatinine Ratio 14.2 Glucose 246 H Lactic Acid 2.0 Calcium 8.9 Urine Color Urine Clarity Urine pH Ur Specific [place] Urine Protein Urine Glucose (UA) Urine Ketones Urine Occult Blood Urine Nitrite Urine Bilirubin Urine Urobilinogen Ur Leukocyte Esterase Urine RBC Urine WBC Ur Squamous Epith Cells Urine Bacteria Urine Mucus Fld Polynuclear WBCs # Fld Polynuclear WBCs % Fluid Mononuclear WBCs Fld Mononuclear WBCs % CSF Appearance CSF Color CSF WBC CSF RBC CSF Cell Count Tube # CSF Total Cell Counted CSF Comment CSF Glucose CSF Total Protein Enterovirus RNA (PCR) Miscellaneous Cytology 01/10/18 01/10/18 01/10/18 19:55 21:27 21:27 WBC RBC Hgb Hct MCV MCH MCHC RDW RDW Differential Plt Count MPV Immature Gran % (Auto) Neut % (Auto) Lymph % (Auto) [place] % (Auto) Eos % (Auto) Baso % (Auto) Absolute Neuts (auto) Absolute Lymphs (auto) Total Counted Sodium Potassium Chloride Carbon Dioxide Anion Gap BUN Creatinine Estim Creat Clear Calc Est GFR (MDRD) Af Amer Est GFR (MDRD) Non-Af BUN/Creatinine Ratio Glucose Lactic Acid Calcium Urine Color Yellow Urine Clarity Clear Urine pH 5.0 Ur Specific [place] 1.025 Urine Protein 30 H Urine Glucose (UA) 1000 H Urine Ketones 5 H Urine Occult Blood 10 H Urine Nitrite Negative Urine Bilirubin Negative Urine Urobilinogen Normal Ur Leukocyte Esterase Negative Urine RBC 0-5 SEEN Urine WBC 0 SEEN Ur Squamous Epith Cells 0-5 SEEN Urine Bacteria 0 SEEN Urine Mucus 0 SEEN Fld Polynuclear WBCs # Fld Polynuclear WBCs % Fluid Mononuclear WBCs Fld Mononuclear WBCs % CSF Appearance CSF Color CSF WBC CSF RBC CSF Cell Count Tube # CSF Total Cell Counted CSF Comment CSF Glucose CSF Total Protein Enterovirus RNA (PCR) Pending Miscellaneous Cytology Pending 01/10/18 01/10/18 01/10/18 21:27 21:27 21:27 WBC RBC Hgb Hct MCV MCH MCHC RDW RDW Differential Plt Count MPV Immature Gran % (Auto) Neut % (Auto) Lymph % (Auto) [place] % (Auto) Eos % (Auto) Baso % (Auto) Absolute Neuts (auto) Absolute Lymphs (auto) Total Counted Sodium Potassium Chloride Carbon Dioxide Anion Gap BUN Creatinine Estim Creat Clear Calc Est GFR (MDRD) Af Amer Est GFR (MDRD) Non-Af BUN/Creatinine Ratio Glucose Lactic Acid Calcium Urine Color Urine Clarity Urine pH Ur Specific [place] Urine Protein Urine Glucose (UA) Urine Ketones Urine Occult Blood Urine Nitrite Urine Bilirubin Urine Urobilinogen Ur Leukocyte Esterase Urine RBC Urine WBC Ur Squamous Epith Cells Urine Bacteria Urine Mucus Fld Polynuclear WBCs # 0.000 Fld Polynuclear WBCs % 0.0 Fluid Mononuclear WBCs 0.001 Fld Mononuclear WBCs % 100.0 CSF Appearance Pending CSF Color Pending CSF WBC 0.001 H CSF RBC Pending CSF Cell Count Tube # Pending CSF Total Cell Counted 0.001 H CSF Comment Pending CSF Glucose 129 H CSF Total Protein 27.0 Enterovirus RNA (PCR) Miscellaneous Cytology Clinical Impression(s) from Imaging Studies Chest X-Ray 01/10/18 17:12 IMPRESSION: No acute cardiopulmonary disease. Electronically Signed: Martin Vega MD at 18:12 EDT , Service support , Brain CT 01/10/18 20:24 IMPRESSION: No acute intracranial abnormality. Sinusitis. Electronically Signed: Hima Mcclain, at 20:57 EDT Tel , Service support , Assessment/Plan Active and Suspected Problems Meningitis (Acute) Headache (Acute) Neck pain (Acute) 1. Possible bacterial meningitis * Discussed with Dr. Gongora, who stated that the lumbar puncture was successful but the needle was essentially placed at the hub when he performed lumbar puncture. Question if the Gram stain is a false positive. But none was given patient's fever headache and neck pain we will treat her empirically for possible meningitis. Patient will be on 2 g of ceftriaxone daily plus vancomycin. Additionally we will give the patient high-dose IV steroids not quite 0.15 mg/kg but for ideal body weight will continue with that. The patient will be on 10 mg every 6 hours for 8 doses. Patient also be on acyclovir in case this does have to be a viral etiology. * I will consult infectious disease for input and see if they feel that this is an actual bacterial meningitis or not. * In the meantime, will follow up on cultures and adjust antibiotics accordingly. 2. Headache * Part related with the meningitis/encephalitis could be migraine variants. * Tylenol and Toradol. * Would recommend avoiding opiates as would likely lead to rebound headaches 3. Diabetes mellitus type 2 * Elevated here and unsure if it is chronically elevated or not * Given the fact the patient is can be on high-dose IV steroids and we will start her on a moderate dose sliding scale. * Check an A1c 4. DVT prophylaxis with subcu Lovenox 5. Morbid obesity, hypertension, hyperlipidemia: Stable but overall complicating patient's overall care. Code Visit Inpatient E&M: 32850 Init Hosp L3
[2018-01-10 23:12] LABS: Body Fluid QC Type(s) BF4Q
--- NOTE | 2018-01-10 23:14 | ED.RN ---
Gram stain negative on 2nd tube. 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
[2018-01-10 23:47] VITALS: BMI 58.5
[2018-01-11 00:55] LABS: Lactic Acid 1.2 mmol/L (0.4-2.0)
[2018-01-11] MEDS: Acetaminophen 325 MG Tablet 650 MG PO ×3 (01:29→21:46)
[2018-01-11] MEDS: proMETHazine 25 MG/ML Syringe 12.5 MG IV ×3 (02:00→21:48)
[2018-01-11 02:01] LABS: Bedside Glucose 249 mg/dL (70-110)
--- NOTE | 2018-01-11 02:16 | NURSING ---
PATIENT C/O H/A PAIN 07/02, PATIENT MOANING/CRYING LOUDLY; BENADRYL, PHENERGAN, DECADRON X1 GIVEN; EMESIS X1 NOTED
[2018-01-11 06:11] LABS: Absolute Lymphocyte Count 0.64 X10^3/ul (0.83-4.51); Absolute Neutrophil Count 7.3 X10^3/uL (2.0-7.7); Basophil# 0.01 X10^3/uL; Basophil% 0.1 % (0-1); Eosinophil# 0.01 X10^3/uL; Eosinophils% 0.1 % (0-5); Hematocrit 42.4 % (37-47); Lymphocyte # 0.64 X10^3/ul (4.0); Lymphocyte % 7.8 % (19-41); Mean Corpuscular Hgb 30.8 pg (27.0-32.0); Mean Corpuscular Volume 93.4 fL (81-99); Mean Platelet Vol. 11.5 fl (6.2-12.0); Monocyte% 3.6 % (0-10); Neutrophil # 7.26 X10^3/uL (2.7-7.7); Neutrophil % 88.2 % (47-70); Platelet Count 173 K/mm3 (150-450); RBC Distribution Width CV 13.1 % (11.6-14.6); RBC Distribution Width SD 43.7 fl (35.1-43.9); Red Blood Count 4.54 M/mm3 (4.2-5.4); White Blood Count 8.2 K/mm3 (4.4-11.0)
[2018-01-11] MEDS: clonazePAM 0.5 MG Tablet PO ×3 (06:23→23:49)
[2018-01-11] MEDS: Dicyclomine 10 MG Capsule 20 MG PO ×4 (06:24→23:50)
[2018-01-11 06:26] LABS: Anion Gap 8 (5-15); BUN 13 mg/dL (7-18); BUN/Creat Ratio 17.1 RATIO (10-20); Calcium,Total 8.3 mg/dL (8.5-10.1); Chloride 102 mmol/L (98-107); Creatinine, Serum 0.76 mg/dL (0.55-1.02); EST Glomerular Filtration Rate 97 mL/min (>60); Est Glom Filt Rate - Afr Amer 117 mL/min (>60); Estimated Creatinine Clearance 104.09 ml/min; Glucose 339 mg/dL (74-106); POSITIVE COUNT NO; POSITIVE DIFFERENTIAL NO; POSITIVE MORPHOLOGY NO; Potassium 3.9 mmol/L (3.5-5.1); Sodium Level 136 mmol/L (136-145)
[2018-01-11 06:29] VITALS: BP 128/70; PULSE 73; RESP 16; TEMP 36.6; O2SAT 98
[2018-01-11 06:40] LABS: Bedside Glucose 354 mg/dL (70-110)
[2018-01-11 08:58] LABS: Hemoglobin A1c 11.5 % (4.2-6.3)
[2018-01-11] MEDS: Lisinopril 5 MG Tablet PO (09:13)
[2018-01-11] MEDS: Pantoprazole Sodium 20 MG Tablet PO (09:13)
[2018-01-11] MEDS: Enoxaparin 40 MG/0.4 ML Syringe SC (09:14)
[2018-01-11] MEDS: DiphenhydrAMINE 50 MG/ML Syringe IV ×2 (09:19→21:49)
[2018-01-11] MEDS: Methylphenidate HCl 5 MG Tablet 10 MG PO ×2 (09:19→23:49)
--- NOTE | 2018-01-11 10:47 | PCM.HP.ID ---
Problem List (1) Meningitis Status: Acute Reason for Consult: meningitis Consulted by: Dr. Stevenson History of Present Illness: The patient is a 27 year old F who presented yesterday with five day history of headache, congestion, cough with small amount of green sputum. Headache was severe, throughout whole head. No prior h/o similar headache, no prior migraines. Over the past 1-2 days, sx worsened, developed high fever, diffuse aches, neck pain, photophobia, painful redness on backs of legs, nausea, lethargy, and confusion. Has 9mo at home also with high fever. She did get flu shot this year. No recent abx. Came to ED, LP done, given doses of steroids, vanc, ceftriaxone, acyclovir. Still with headache this AM. Full ROS performed and neg except as noted above. - Medical History Past Medical History (Chronic Problems): Chronic Problems Endometrial cancer (Chronic) DM2 (diabetes mellitus, type 2) (Chronic) Morbid obesity (Chronic) Hypertension (Chronic) Hyperlipidemia (Chronic) Depression (Chronic) Radiation (Chronic) Uterine cancer (Chronic) Allergies/Adverse Reactions: Allergies ibuprofen Allergy (Verified 01/10/18 16:48) Laryngospasms ketorolac [From Toradol] Allergy (Verified 01/10/18 16:48) Hives morphine Allergy (Verified 01/10/18 16:48) Hives naproxen Allergy (Verified 01/10/18 16:48) Laryngospasms Home Medications: Ambulatory Orders Medication Instructions Recorded Clonazepam [Klonopin] 0.5 mg PO TID 10/22/16 Sertraline HCl [Zoloft] 200 mg PO DAILY 10/22/16 Methylphenidate HCl [Ritalin] 10 mg PO BID 12/29/16 Omeprazole [Prilosec] 10 mg PO DAILY 02/21/17 Ondansetron [Zofran Odt] 4 mg PO Q8H PRN PRN #10 tablet 07/19/17 Dicyclomine HCl [Bentyl] 10 mg PO TIDAC PRN #20 capsule 09/15/17 Atorvastatin Calcium [Lipitor] 10 mg PO QHS 01/10/18 Lisinopril [Prinivil] 5 mg PO DAILY 01/10/18 Dicyclomine HCl [Bentyl] 20 mg PO ACHS 01/11/18 Metformin HCl [Glucophage] 1,000 mg PO BIDCM 01/11/18 - Social History SMOKING STATUS:: Former smoker Vital Signs Temp Pulse Resp BP Pulse Ox 97.9 F 73 16 128/70 H 98 01/11/18 06:29 01/11/18 06:29 01/11/18 06:29 01/11/18 06:29 01/11/18 06:29 Oxygen Delivery Method Room Air Weight: 169.1 kg Body Mass Index (BMI) 58.5 Laboratory Tests Past 24 Hrs 01/10/18 01/11/18 01/11/18 23:26 05:15 05:15 WBC 8.2 RBC 4.54 Hgb 14.0 Hct 42.4 MCV 93.4 MCH 30.8 MCHC 33.0 RDW 13.1 RDW Differential 43.7 Plt Count 173 MPV 11.5 Immature Gran % (Auto) 0.200 Neut % (Auto) 88.2 H Lymph % (Auto) 7.8 L [place] % (Auto) 3.6 Eos % (Auto) 0.1 Baso % (Auto) 0.1 Absolute Neuts (auto) 7.3 Absolute Lymphs (auto) 0.64 L Total Counted Not Reportable Sodium 136 Potassium 3.9 Chloride 102 Carbon Dioxide 26.0 Anion Gap 8 BUN 13 Creatinine 0.76 Estim Creat Clear Calc 104.09 Est GFR (MDRD) Af Amer 117 Est GFR (MDRD) Non-Af 97 BUN/Creatinine Ratio 17.1 Glucose 339 H Hemoglobin A1c Lactic Acid 1.2 Calcium 8.3 L 01/11/18 05:15 WBC RBC Hgb Hct MCV MCH MCHC RDW RDW Differential Plt Count MPV Immature Gran % (Auto) Neut % (Auto) Lymph % (Auto) [place] % (Auto) Eos % (Auto) Baso % (Auto) Absolute Neuts (auto) Absolute Lymphs (auto) Total Counted Sodium Potassium Chloride Carbon Dioxide Anion Gap BUN Creatinine Estim Creat Clear Calc Est GFR (MDRD) Af Amer Est GFR (MDRD) Non-Af BUN/Creatinine Ratio Glucose Hemoglobin A1c 11.5 H Lactic Acid Calcium - Other Studies Radiology: [] reviewed Other Studies: [] Route of nutrition/ use of supplements: [] Nutritional Intake: [] IV Site: [] Rowe Catheter: [] - Physical Exam General: Alert, Oriented x3, Cooperative HEENT: Atraumatic, PERRLA, EOMI Neck: Supple, No Nodes Lungs: Clear to auscultation, Normal air movement Cardiovascular: Regular rate, Regular Rhythm, No murmurs Abdomen: Bowel Sounds Present, Soft, Non Tender, Non-Distended, Obese Skin: - - tender redness and warmth on posterior BLE, R more than L IV Site: Peripheral, without redness Musculoskeletal: No Tenderness to Palpation of Joints or Extremities Neurological: Cranial nerves II-XII grossly intact - Assessment/Plan Antibiotics: [] Assessment/Plan: [] Active and Suspected Problems Meningitis (Acute) Headache (Acute) Neck pain (Acute) CSF without inflammation, so no evidence of meningitis/encephalitis. Will stop acyclovir. With headache, fever, aches, nausea, and multiple sick contacts, concern for flu. Will order pcr and start empiric tamiflu while results are pending. If headache persists, may benefit from neuro eval. Cellulitis - on posterior BLE. Will cover with cefazolin. Thank you, will follow.
[2018-01-11 11:45] VITALS: BP 136/78; PULSE 75; RESP 14; TEMP 36.5; O2SAT 94
[2018-01-11] MEDS: Oseltamivir Phosphate 75 MG Capsule PO ×2 (11:53→23:50)
[2018-01-11] MEDS: Sertraline 100 MG Tablet 200 MG PO (11:53)
[2018-01-11] MEDS: 0.9% NaCl Peripheral Flush Adult/Peds IV (11:59)
[2018-01-11 12:21] LABS: Bedside Glucose 389 mg/dL (70-110)
[2018-01-11] MEDS: Acetaminophen/Butalbital/Caffe 1 Tablet 2 TABLET PO (14:20)
--- NOTE | 2018-01-11 14:49 | PN_ITS ---
Patient Problems: Active and Suspected Problems Meningitis (Acute) Headache (Acute) Neck pain (Acute) Subjective: Patient is sitting upright in bed eating breakfast in no acute distress. She continues to complain of in all over severe headache, worse in the neck and posterior head. She has no fevers or chills. She complains of a rash on her lower extremities mostly posteriorly. Is an erythematous diffuse rash. She is reported that the rash and her headache is been present for about 4 days. She also has some shortness of breath with exertion, denies cough, does have some sinus congestion. She did also complain of dysuria and urinary retention which required straight cath, however her UA was unremarkable. - Physical Exam General: Alert, Oriented x3, Cooperative HEENT: Atraumatic, PERRLA, EOMI, Normocephalic, - Neck: Supple, No JVD, Negative Carotid Bruits, - - tenderness to palp, no nuchal rigidity appreciated. Lungs: Clear to auscultation, Normal air movement Cardiovascular: Regular rate, No murmurs Abdomen: Bowel Sounds Present, Soft, Non Tender, Obese Extremities: No edema, Capillary Refill Less than 3 Seconds Skin: No breakdown, - - diffuse erythematous changes to posterior BLE Musculoskeletal: No Tenderness to Palpation of Joints or Extremities Neurological: Cranial nerves II-XII grossly intact Psych/Mental Status: Normal Affect, Appropriate, Alert and oriented to time, place, person, mood and affect Vital Signs Temp Pulse Resp BP Pulse Ox 97.7 F L 75 14 136/78 H 94 01/11/18 11:45 01/11/18 11:45 01/11/18 11:45 01/11/18 11:45 01/11/18 11:45 Oxygen Delivery Method Room Air Weight: 169.1 kg Body Mass Index (BMI) 58.5 Intake and Output for Last 24 Hours 01/09/18 01/10/18 01/11/18 23:59 23:59 23:59 Intake Total 1461 / 1461 Balance 1461 / 1461 Laboratory Tests Past 24 Hrs 01/10/18 01/11/18 01/11/18 23:26 05:15 05:15 WBC 8.2 RBC 4.54 Hgb 14.0 Hct 42.4 MCV 93.4 MCH 30.8 MCHC 33.0 RDW 13.1 RDW Differential 43.7 Plt Count 173 MPV 11.5 Immature Gran % (Auto) 0.200 Neut % (Auto) 88.2 H Lymph % (Auto) 7.8 L [place] % (Auto) 3.6 Eos % (Auto) 0.1 Baso % (Auto) 0.1 Absolute Neuts (auto) 7.3 Absolute Lymphs (auto) 0.64 L Total Counted Not Reportable Sodium 136 Potassium 3.9 Chloride 102 Carbon Dioxide 26.0 Anion Gap 8 BUN 13 Creatinine 0.76 Estim Creat Clear Calc 104.09 Est GFR (MDRD) Af Amer 117 Est GFR (MDRD) Non-Af 97 BUN/Creatinine Ratio 17.1 Glucose 339 H Hemoglobin A1c Lactic Acid 1.2 Calcium 8.3 L 01/11/18 05:15 WBC RBC Hgb Hct MCV MCH MCHC RDW RDW Differential Plt Count MPV Immature Gran % (Auto) Neut % (Auto) Lymph % (Auto) [place] % (Auto) Eos % (Auto) Baso % (Auto) Absolute Neuts (auto) Absolute Lymphs (auto) Total Counted Sodium Potassium Chloride Carbon Dioxide Anion Gap BUN Creatinine Estim Creat Clear Calc Est GFR (MDRD) Af Amer Est GFR (MDRD) Non-Af BUN/Creatinine Ratio Glucose Hemoglobin A1c 11.5 H Lactic Acid Calcium POC Glucose 01/11/18 01/11/18 01/11/18 11:50 06:19 01:43 POC Glucose 389 H 354 H 249 H Medical Necessity - Tobacco Use Smoking Status: Former smoker Tobacco Use: Non-smoker Assessment/Plan Active and Suspected Problems Meningitis (Acute) Headache (Acute) Neck pain (Acute) 1. Headache/Neck pain - meningitis ruled out per infectious disease. No fever or leukocytosis. Abx and Acyclovir have been discontinued. She will be started on fioricet for headache. If no improvement concern for migraine and will try depakote. Could also be partially related to HTN which was poorly controlled at admission. -herpes cx pending -blood cultures pending - resp panel negative, flu neg -CSF grain stain without bacteria, final cx pending. -LP fluid see labs. 2. BLE posterior cellulitis - ID has started pt on Ancef. 3. 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 Levemir added - Increase as poorly controlled. She will need to continue metformin with additional agent at discharge. A1C is 11.5. 4. Dysuria / Urinary retention - UA unremarkable. 5. HTN - Improved. 6. Hx of endometrial cancer in remission since 2014 s/p hysterectomy, radiation therapy. 7. ADD - ritalin 8. Anx/Depression - continue home meds 9. HLD - statin DVT ppx: lovenox This patient was seen by Shamar Davies PA-C under the supervision of Doctor Montalvo.
[2018-01-11 15:04] LABS: Pathologist Review Reviewed
[2018-01-11] MEDS: Cefazolin 2 GM in 0.9% Normal Saline 100 ML IV ×2 (15:10→23:50)
[2018-01-11 16:30] VITALS: BP 117/74; PULSE 71; RESP 14; TEMP 36.4; O2SAT 94
[2018-01-11 16:35] LABS: Bedside Glucose 338 mg/dL (70-110)
--- NOTE | 2018-01-11 21:30 | NURSING ---
Late note. Nuria GARCIA called my phone and advised me that this pt had fallen. I immediately called Cierra JORDAN who is her primary nurse and headed back to the room. When I entered the bathroom and asked the pt what had happened, she replied that she had been sitting on the toilet, started to feel dizzy but felt she would be okay, and then fell forward onto the floor. She pulled the call light after she was on the floor. Pt was sitting Pakistani style on the floor of the bathroom at the time that I was talking to her. She stated the right side of her face was sore and her hand. Vital signs were stable and the pt was assisted back to bed. Cierra JORDAN was going to assess the pt.
[2018-01-11 21:54] VITALS: BP 137/97; PULSE 100; RESP 20; TEMP 36.4; O2SAT 96
--- NOTE | 2018-01-11 22:29 | CT_ITS ---
STUDY: CT BRAIN WITHOUT CONTRAST REASON FOR EXAM: Female, 27 years old. Fall RADIATION DOSAGE (If Supplied By Facility): CTDIvol = ( 44.99 ) mGy, DLP = ( 880.47 ) mGycm TECHNIQUE: Transaxial CT imaging of the brain was performed without administration of intravenous contrast material. Individualized dose optimization techniques were used for this CT. COMPARISON: 01/10/2018 FINDINGS: Normal soft tissue structures. There is hyperostosis frontalis internus. Normal size ventricles and extra-axial spaces for the patient's age. Normal white matter tracts of the cerebral hemispheres. Normal basal ganglia and thalami. Normal brainstem. Normal cerebellum. There is no intracranial hemorrhage. There are no findings of an acute ischemic infarction. Right maxillary and left sphenoid sinus disease. CT/Brain/Head without Contrast IMPRESSION: No fracture or hemorrhage. Electronically Signed: Leeroy Diallo MD at 23:45 EDT Tel , Service support ,
--- NOTE | 2018-01-11 22:29 | CT_ITS ---
STUDY: CT CERVICAL SPINE WITHOUT CONTRAST REASON FOR EXAM: Female, 27 years old. Falling injury of the neck. RADIATION DOSAGE (If Supplied By Facility): CTDIvol = ( 41.89 ) mGy, DLP = ( 1001.90 ) mGycm TECHNIQUE: High resolution transaxial imaging was performed without contrast material. Sagittal and coronal images were reconstructed. Individualized dose optimization techniques were used for this CT. COMPARISON: Prior cervical spine imaging of February 21, 2017 FINDINGS: Image quality reduced by patient obesity particularly at lower cervical levels. Normal craniovertebral junction. Normal anterior atlantoaxial articulation. Normal odontoid process. There is straightening of the normal cervical lordosis. Normal vertebral bodies and posterior osseous elements. Negative for acute fracture of the cervical spine. C2-3: Normal endplates. Normal disc height and morphology. Normal central canal and intervertebral neuroforamina. C3-4: Normal endplates. Normal disc height and morphology. Normal central canal and intervertebral neuroforamina. C4-5: Normal endplates. Normal disc height and morphology. Normal central canal and intervertebral neuroforamina. C5-6: Normal endplates. Normal disc height and morphology. Normal central canal and intervertebral neuroforamina. C6-7: Normal endplates. Normal disc height and morphology. Normal central canal and intervertebral neuroforamina. C7-T1: Normal endplates. Normal disc height and morphology. Normal central canal and intervertebral neuroforamina. Extensive mucosal thickening noted in the left sphenoid sinus. Mild areas of mucosal thickening in the right sphenoid sinus. CT/Spine Cervical without Contras IMPRESSION: Straightening of the cervical spine with otherwise normal alignment. Negative for acute fracture of the cervical spine. Extensive mucosal thickening noted in the left sphenoid sinus. Mild area of mucosal thickening in the right sphenoid sinus. Electronically Signed: Rashida Rose MD at 23:46 EDT , Service support ,
[2018-01-11] MEDS: Atorvastatin Calcium 10 MG Tablet PO (23:49)
[2018-01-12 00:16] LABS: Bedside Glucose 410 mg/dL (70-110)
[2018-01-12] MEDS: Acetaminophen 325 MG Tablet 650 MG PO (04:44)
[2018-01-12] MEDS: DiphenhydrAMINE 50 MG/ML Syringe IV ×3 (04:44→18:07)
[2018-01-12 04:48] VITALS: BP 130/70; PULSE 76; RESP 16; TEMP 36.6; O2SAT 96
[2018-01-12] MEDS: Dicyclomine 10 MG Capsule 20 MG PO ×4 (06:17→22:46)
[2018-01-12] MEDS: clonazePAM 0.5 MG Tablet PO ×3 (06:18→22:46)
[2018-01-12] MEDS: Cefazolin 2 GM in 0.9% Normal Saline 100 ML IV (06:18)
[2018-01-12 06:31] LABS: Bedside Glucose 442 mg/dL (70-110)
[2018-01-12 08:16] VITALS: BP 121/70; PULSE 69; RESP 16; TEMP 36.8; O2SAT 95
[2018-01-12] MEDS: Pantoprazole Sodium 20 MG Tablet PO (10:27)
[2018-01-12] MEDS: Sertraline 100 MG Tablet 200 MG PO (10:27)
[2018-01-12] MEDS: Enoxaparin 40 MG/0.4 ML Syringe SC (10:27)
[2018-01-12] MEDS: guaiFENesin 1,200 MG Tablet 1200 MG PO ×2 (10:37→22:46)
[2018-01-12] MEDS: Lisinopril 5 MG Tablet PO (10:37)
[2018-01-12] MEDS: Methylphenidate HCl 5 MG Tablet 10 MG PO ×2 (10:37→22:59)
[2018-01-12] MEDS: SUMAtriptan 6 MG/0.5 ML Vial SC (10:39)
--- NOTE | 2018-01-12 10:55 | PCM.CONS.GEN ---
Reason for Consult Date of Consultation: 01/12/18 Reason for Consultation: headache History of Present Illness: The patient is a 27 year old right handed white female presents with 6 d history of headache, initially felt like a normal headache become much more painful, came to the hospital, so far no relief. reports she normally has a headache 1-2 days per week, takes tylenol or excedrin once/twice per week. no triggers 6d ago. reports nausea. no vomiting currently but did prior to admission then during admission. no new meds at home. reports dm diagnosed janurary, sugars running 300s at home. poor sleep currently but at home sleeps ok. no stress at home. history of uterine cancer, hysterectomy 2014. takes ritalin for ADD and klonopin for anxiety. per admit h&p:The patient is a 27 year old F Joyce to the emergency room from her primary care physician's office. Patient has been complaining of 4 days of cough and back and neck pain with associated headache posteriorly. Patient has numerous sick family members. In the emergency room, patient was afebrile but did have a temperature in the office of 102.9 Fahrenheit. A lumbar puncture was performed and actually was successful. The initial workup from the lumbar puncture studies showed very low white blood cell count and but did show gram-positive cocci on the Gram stain. Patient is being admitted for possible meningitis. Patient in the emergency room did receive vancomycin and ceftriaxone. Patient did receive several doses of IV Dilaudid for her headache. Past Medical History Past Medical History (Chronic Problems): Chronic Problems Endometrial cancer (Chronic) DM2 (diabetes mellitus, type 2) (Chronic) Morbid obesity (Chronic) Hypertension (Chronic) Hyperlipidemia (Chronic) Depression (Chronic) Radiation (Chronic) Uterine cancer (Chronic) Allergies ibuprofen Allergy (Verified 01/10/18 16:48) Laryngospasms ketorolac [From Toradol] Allergy (Verified 01/10/18 16:48) Hives morphine Allergy (Verified 01/10/18 16:48) Hives naproxen Allergy (Verified 01/10/18 16:48) Laryngospasms Home Medications: Ambulatory Orders Medication Instructions Recorded Clonazepam [Klonopin] 0.5 mg PO TID 10/22/16 Sertraline HCl [Zoloft] 200 mg PO DAILY 10/22/16 Methylphenidate HCl [Ritalin] 10 mg PO BID 12/29/16 Omeprazole [Prilosec] 10 mg PO DAILY 02/21/17 Ondansetron [Zofran Odt] 4 mg PO Q8H PRN PRN #10 tablet 07/19/17 Dicyclomine HCl [Bentyl] 10 mg PO TIDAC PRN #20 capsule 09/15/17 Atorvastatin Calcium [Lipitor] 10 mg PO QHS 01/10/18 Lisinopril [Prinivil] 5 mg PO DAILY 01/10/18 Dicyclomine HCl [Bentyl] 20 mg PO ACHS 01/11/18 Metformin HCl [Glucophage] 1,000 mg PO BIDCM 01/11/18 Surgical History: hysterectomy, - - hysteroscopy, ovarian moving 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 Lives: With Family Smoking Status: Former smoker Tobacco Use: Non-smoker Alcohol: None Drugs: None - *Family History Maternal History Items: - - uterine cancer, thyroid diabetes Paternal History Items: - - not sure Patient Problems: Active and Suspected Problems Meningitis (Acute) Headache (Acute) Neck pain (Acute) - Physical Exam General: Alert, Oriented x3, Cooperative HEENT: Atraumatic, PERRLA, EOMI, Normocephalic Neck: Supple, No JVD, Negative Carotid Bruits Lungs: Clear to auscultation, Normal air movement Cardiovascular: Regular rate, No murmurs Abdomen: Bowel Sounds Present, Soft, Non Tender Extremities: No edema, Capillary Refill Less than 3 Seconds Skin: No rashes, No breakdown Musculoskeletal: No Tenderness to Palpation of Joints or Extremities Neurological: Cranial nerves II-XII grossly intact Psych/Mental Status: Normal Affect, Appropriate Vital Signs Temp Pulse Resp BP Pulse Ox 36.8 C 69 16 121/70 H 95 01/12/18 08:16 01/12/18 08:16 01/12/18 08:16 01/12/18 08:16 01/12/18 08:16 Oxygen Delivery Method Room Air Weight: 169.1 kg Body Mass Index (BMI) 58.5 Intake and Output for Last 24 Hours 01/10/18 01/11/18 01/12/18 23:59 23:59 23:59 Intake Total 2450 / 2450 1111 / 1111 Balance 2450 / 2450 1111 / 1111 POC Glucose 01/12/18 01/11/1801/11/18 06:21 23:53 16:24 POC Glucose 442 H 410 H 338 H 01/11/18 11:50 POC Glucose 389 H Laboratory Results - last 24 hr 01/10/18 01/11/18 01/11/18 21:27 11:50 16:24 CSF Comment Reviewed POC Glucose 389 H 338 H 01/11/18 01/12/18 23:53 06:21 CSF Comment POC Glucose 410 H 442 H Laboratory Tests 01/10/18 01/10/18 01/10/18 18:18 18:18 18:18 WBC 9.7 RBC 5.11 Hgb 15.7 H Hct 47.4 H MCV 92.8 MCH 30.7 MCHC 33.1 RDW 13.3 RDW Differential 45.2 H Plt Count 176 MPV 11.4 Immature Gran % (Auto) 0.300 Neut % (Auto) 69.9 Lymph % (Auto) 23.1 [place] % (Auto) 6.1 Eos % (Auto) 0.4 Baso % (Auto) 0.2 Absolute Neuts (auto) 6.8 Absolute Lymphs (auto) 2.24 Total Counted Not Reportable Sodium 137 Potassium 3.6 Chloride 104 Carbon Dioxide 23.0 Anion Gap 10 BUN 9 Creatinine 0.63 Estim Creat Clear Calc 130.44 Est GFR (MDRD) Af Amer 144 Est GFR (MDRD) Non-Af 119 BUN/Creatinine Ratio 14.2 Glucose 246 H Hemoglobin A1c Lactic Acid 2.0 Calcium 8.9 Urine Color Urine Clarity Urine pH Ur Specific [place] Urine Protein Urine Glucose (UA) Urine Ketones Urine Occult Blood Urine Nitrite Urine Bilirubin Urine Urobilinogen Ur Leukocyte Esterase Urine RBC Urine WBC Ur Squamous Epith Cells Urine Bacteria Urine Mucus Fld Polynuclear WBCs # Fld Polynuclear WBCs % Fluid Mononuclear WBCs Fld Mononuclear WBCs % CSF Appearance CSF Color CSF WBC CSF RBC CSF Cell Count Tube # CSF Total Cell Counted CSF Comment CSF Glucose CSF Total Protein POC Glucose 01/10/18 01/10/18 01/10/18 19:55 21:27 21:27 WBC RBC Hgb Hct MCV MCH MCHC RDW RDW Differential Plt Count MPV Immature Gran % (Auto) Neut % (Auto) Lymph % (Auto) [place] % (Auto) Eos % (Auto) Baso % (Auto) Absolute Neuts (auto) Absolute Lymphs (auto) Total Counted Sodium Potassium Chloride Carbon Dioxide Anion Gap BUN Creatinine Estim Creat Clear Calc Est GFR (MDRD) Af Amer Est GFR (MDRD) Non-Af BUN/Creatinine Ratio Glucose Hemoglobin A1c Lactic Acid Calcium Urine Color Yellow Urine Clarity Clear Urine pH 5.0 Ur Specific [place] 1.025 Urine Protein 30 H Urine Glucose (UA) 1000 H Urine Ketones 5 H Urine Occult Blood 10 H Urine Nitrite Negative Urine Bilirubin Negative Urine Urobilinogen Normal Ur Leukocyte Esterase Negative Urine RBC 0-5 SEEN Urine WBC 0 SEEN Ur Squamous Epith Cells 0-5 SEEN Urine Bacteria 0 SEEN Urine Mucus 0 SEEN Fld Polynuclear WBCs # Fld Polynuclear WBCs % Fluid Mononuclear WBCs Fld Mononuclear WBCs % CSF Appearance CSF Color CSF WBC CSF RBC CSF Cell Count Tube # CSF Total Cell Counted CSF Comment CSF Glucose 129 H CSF Total Protein 27.0 POC Glucose 01/10/18 01/10/18 01/11/18 21:27 23:26 01:43 WBC RBC Hgb Hct MCV MCH MCHC RDW RDW Differential Plt Count MPV Immature Gran % (Auto) Neut % (Auto) Lymph % (Auto) [place] % (Auto) Eos % (Auto) Baso % (Auto) Absolute Neuts (auto) Absolute Lymphs (auto) Total Counted Sodium Potassium Chloride Carbon Dioxide Anion Gap BUN Creatinine Estim Creat Clear Calc Est GFR (MDRD) Af Amer Est GFR (MDRD) Non-Af BUN/Creatinine Ratio Glucose Hemoglobin A1c Lactic Acid 1.2 Calcium Urine Color Urine Clarity Urine pH Ur Specific [place] Urine Protein Urine Glucose (UA) Urine Ketones Urine Occult Blood Urine Nitrite Urine Bilirubin Urine Urobilinogen Ur Leukocyte Esterase Urine RBC Urine WBC Ur Squamous Epith Cells Urine Bacteria Urine Mucus Fld Polynuclear WBCs # 0.000 Fld Polynuclear WBCs % 0.0 Fluid Mononuclear WBCs 0.001 Fld Mononuclear WBCs % 100.0 CSF Appearance CLEAR CSF Color COLORLESS CSF WBC 0.001 H CSF RBC 4 H CSF Cell Count Tube # 4 CSF Total Cell Counted 0.001 H CSF Comment Reviewed CSF Glucose CSF Total Protein POC Glucose 249 H 01/11/18 01/11/18 01/11/18 05:15 05:15 05:15 WBC 8.2 RBC 4.54 Hgb 14.0 Hct 42.4 MCV 93.4 MCH 30.8 MCHC 33.0 RDW 13.1 RDW Differential 43.7 Plt Count 173 MPV 11.5 Immature Gran % (Auto) 0.200 Neut % (Auto) 88.2 H Lymph % (Auto) 7.8 L [place] % (Auto) 3.6 Eos % (Auto) 0.1 Baso % (Auto) 0.1 Absolute Neuts (auto) 7.3 Absolute Lymphs (auto) 0.64 L Total Counted Not Reportable Sodium 136 Potassium 3.9 Chloride 102 Carbon Dioxide 26.0 Anion Gap 8 BUN 13 Creatinine 0.76 Estim Creat Clear Calc 104.09 Est GFR (MDRD) Af Amer 117 Est GFR (MDRD) Non-Af 97 BUN/Creatinine Ratio 17.1 Glucose 339 H Hemoglobin A1c 11.5 H Lactic Acid Calcium 8.3 L Urine Color Urine Clarity Urine pH Ur Specific [place] Urine Protein Urine Glucose (UA) Urine Ketones Urine Occult Blood Urine Nitrite Urine Bilirubin Urine Urobilinogen Ur Leukocyte Esterase Urine RBC Urine WBC Ur Squamous Epith Cells Urine Bacteria Urine Mucus Fld Polynuclear WBCs # Fld Polynuclear WBCs % Fluid Mononuclear WBCs Fld Mononuclear WBCs % CSF Appearance CSF Color CSF WBC CSF RBC CSF Cell Count Tube # CSF Total Cell Counted CSF Comment CSF Glucose CSF Total Protein POC Glucose 01/11/18 01/11/18 01/11/18 06:19 11:50 16:24 WBC RBC Hgb Hct MCV MCH MCHC RDW RDW Differential Plt Count MPV Immature Gran % (Auto) Neut % (Auto) Lymph % (Auto) [place] % (Auto) Eos % (Auto) Baso % (Auto) Absolute Neuts (auto) Absolute Lymphs (auto) Total Counted Sodium Potassium Chloride Carbon Dioxide Anion Gap BUN Creatinine Estim Creat Clear Calc Est GFR (MDRD) Af Amer Est GFR (MDRD) Non-Af BUN/Creatinine Ratio Glucose Hemoglobin A1c Lactic Acid Calcium Urine Color Urine Clarity Urine pH Ur Specific [place] Urine Protein Urine Glucose (UA) Urine Ketones Urine Occult Blood Urine Nitrite Urine Bilirubin Urine Urobilinogen Ur Leukocyte Esterase Urine RBC Urine WBC Ur Squamous Epith Cells Urine Bacteria Urine Mucus Fld Polynuclear WBCs # Fld Polynuclear WBCs % Fluid Mononuclear WBCs Fld Mononuclear WBCs % CSF Appearance CSF Color CSF WBC CSF RBC CSF Cell Count Tube # CSF Total Cell Counted CSF Comment CSF Glucose CSF Total Protein POC Glucose 354 H 389 H 338 H 01/11/18 01/12/18 23:53 06:21 WBC RBC Hgb Hct MCV MCH MCHC RDW RDW Differential Plt Count MPV Immature Gran % (Auto) Neut % (Auto) Lymph % (Auto) [place] % (Auto) Eos % (Auto) Baso % (Auto) Absolute Neuts (auto) Absolute Lymphs (auto) Total Counted Sodium Potassium Chloride Carbon Dioxide Anion Gap BUN Creatinine Estim Creat Clear Calc Est GFR (MDRD) Af Amer Est GFR (MDRD) Non-Af BUN/Creatinine Ratio Glucose Hemoglobin A1c Lactic Acid Calcium Urine Color Urine Clarity Urine pH Ur Specific [place] Urine Protein Urine Glucose (UA) Urine Ketones Urine Occult Blood Urine Nitrite Urine Bilirubin Urine Urobilinogen Ur Leukocyte Esterase Urine RBC Urine WBC Ur Squamous Epith Cells Urine Bacteria Urine Mucus Fld Polynuclear WBCs # Fld Polynuclear WBCs % Fluid Mononuclear WBCs Fld Mononuclear WBCs % CSF Appearance CSF Color CSF WBC CSF RBC CSF Cell Count Tube # CSF Total Cell Counted CSF Comment CSF Glucose CSF Total Protein POC Glucose [address] reviewed, normal, slit-like vents Assessment/Plan Active and Suspected Problems Meningitis (Acute) Headache (Acute) Neck pain (Acute) status migranosus: complicated by hyperglycemia, ritalin and klonopin use, possible pseudotumor cerebri. meningitis appears to have been ruled out MRI: refuses start diamox and topamax agree with steroids for now agressive bs control elavil
--- NOTE | 2018-01-12 11:53 | PN.ID_ITS ---
Patient Problems: Active and Suspected Problems Meningitis (Acute) Headache (Acute) Neck pain (Acute) Subjective: Still with severe headache, neck pain. No fever. Legs less painful. - Physical Exam General: - - in pain Lungs: Clear to auscultation, Normal air movement Cardiovascular: Regular rate, Regular Rhythm Abdomen: Soft, Non Tender, Non-Distended, Obese Skin: Rash Present - fading on posterior BLE Vital Signs Temp Pulse Resp BP Pulse Ox 98.2 F 69 16 121/70 H 95 01/12/18 08:16 01/12/18 08:16 01/12/18 08:16 01/12/18 08:16 01/12/18 08:16 Oxygen Delivery Method Room Air Weight: 169.1 kg Body Mass Index (BMI) 58.5 Intake and Output for Last 24 Hours 01/10/18 01/11/18 01/12/18 23:59 23:59 23:59 Intake Total 2450 / 2450 1111 / 1111 Balance 2450 / 2450 1111 / 1111 POC Glucose 01/12/18 01/11/18 01/11/18 06:21 23:53 16:24 POC Glucose 442 H 410 H 338 H 01/11/18 11:50 POC Glucose 389 H Medical Necessity - Tobacco Use Smoking Status: Former smoker Tobacco Use: Non-smoker Route of nutrition/ use of supplements: [] Nutritional Intake: [] IV Site: [] Rowe Catheter: [] - Assessment/Plan Antibiotics: [] Assessment/Plan: [] Active and Suspected Problems Meningitis (Acute) Headache (Acute) Neck pain (Acute) CSF without inflammation, so no evidence of meningitis/encephalitis. At this point, low suspicion for flu, so will stop tamiflu. CT did show some sinusitis , so will change abx to unasyn. Neuro consulted. Cellulitis - on posterior BLE. Improved. Abx as above. Will follow, d/w primary team.
[2018-01-12 12:05] LABS: Bedside Glucose 348 mg/dL (70-110)
[2018-01-12] MEDS: AcetaZOLAMIDE 250 MG Tablet PO ×2 (12:21→16:25)
[2018-01-12] MEDS: 0.9% NaCl Peripheral Flush Adult/Peds IV ×2 (12:22→18:08)
--- NOTE | 2018-01-12 13:59 | PCM.CONS.GEN ---
Problem List (1) Acute maxillary sinusitis Status: Acute Reason for Consult Date of Consultation: 01/12/18 Reason for Consultation: sinusitis on CT scan for headache complaint History of Present Illness: The patient is a 27 year old F who presents through the ED for severe headaches, meningitis work-up. She reports severed headache over the last 6 days. She denies prior occurrence. The pain is severe and located at the back of the head and upper neck. It is worsened by neck flexion. She denies nasal congestion or discharge, but does admit to family sick contacts. She denied prior history of sinus disease, or neck or head trauma. Past Medical History Past Medical History (Chronic Problems): Chronic Problems Endometrial cancer (Chronic) DM2 (diabetes mellitus, type 2) (Chronic) Morbid obesity (Chronic) Hypertension (Chronic) Hyperlipidemia (Chronic) Depression (Chronic) Radiation (Chronic) Uterine cancer (Chronic) Allergies ibuprofen Allergy (Verified 01/10/18 16:48) Laryngospasms ketorolac [From Toradol] Allergy (Verified 01/10/18 16:48) Hives morphine Allergy (Verified 01/10/18 16:48) Hives naproxen Allergy (Verified 01/10/18 16:48) Laryngospasms Home Medications: Ambulatory Orders Medication Instructions Recorded Clonazepam [Klonopin] 0.5 mg PO TID 10/22/16 Sertraline HCl [Zoloft] 200 mg PO DAILY 10/22/16 Methylphenidate HCl [Ritalin] 10 mg PO BID 12/29/16 Omeprazole [Prilosec] 10 mg PO DAILY 02/21/17 Ondansetron [Zofran Odt] 4 mg PO Q8H PRN PRN #10 tablet 07/19/17 Dicyclomine HCl [Bentyl] 10 mg PO TIDAC PRN #20 capsule 09/15/17 Atorvastatin Calcium [Lipitor] 10 mg PO QHS 01/10/18 Lisinopril [Prinivil] 5 mg PO DAILY 01/10/18 Dicyclomine HCl [Bentyl] 20 mg PO ACHS 01/11/18 Metformin HCl [Glucophage] 1,000 mg PO BIDCM 01/11/18 Surgical History: hysterectomy, - - hysteroscopy, ovarian moving 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 Denies: Chills, Fever, Night Sweats Eyes: Reports: Blurred vision. Denies: Double vision, Pain HEENT: Reports: Head Aches. Denies: Difficulty Hearing, Difficulty Swallowing, Dysphasia, Ear Pain, Eye Pain, Hearing Changes, Nasal bleeding, Nasal Congestion, Post Nasal Drip, Sinus Congestion, Sinus Drainage, Sore Throat Cardiovascular: Denies: Chest Pain, Claudication Respiratory: Denies: Cough, Hemoptysis Gastrointestinal: Denies: Abdominal Pain Neurological: Denies: Balance problems, Blurred vision, Double vision Psychiatric: Denies: Anxiety Hematologic/ Lymphatic: Denies: Anemia Patient Problems: Active and Suspected Problems Meningitis (Acute) Headache (Acute) Neck pain (Acute) Acute maxillary sinusitis (Acute) Subjective: obese female, obvious light sensitivity but cooperative and alert - Physical Exam General: Alert, Oriented x3 HEENT: Atraumatic, PERRLA, EOMI Oral: Moist Mucosa, No Gingival or Mucosal Lesions/ Ulcerations Neck: Supple, Trachea Midline, Thyroid Normal Size and Texture Lungs: Normal air movement, No rhonchi, No wheeze Cardiovascular: Regular rate, Regular Rhythm Abdomen: Bowel Sounds Present, Obese Skin: No rashes Lymphatic: No Cervical, Supraclavicular, or Inguinal Adenopathy Psych/Mental Status: Normal Affect Vital Signs Temp Pulse Resp BP Pulse Ox 98.2 F 69 16 121/70 H 95 01/12/18 08:16 01/12/18 08:16 01/12/18 08:16 01/12/18 08:16 01/12/18 08:16 Oxygen Delivery Method Room Air Weight: 169.1 kg Body Mass Index (BMI) 58.5 Intake and Output for Last 24 Hours 01/10/18 01/11/18 01/12/18 23:59 23:59 23:59 Intake Total 2450 / 2450 1111 / 1111 Balance 2450 / 2450 1111 / 1111 Microbiology Past 72 Hours 01/11/18 14:40 - Final Mucosa - Nasopharyngeal POC Glucose 01/12/18 01/12/18 01/11/18 11:41 06:21 23:53 POC Glucose 348 H 442 H 410 H 01/11/18 16:24 POC Glucose 338 H Assessment/Plan Active and Suspected Problems Meningitis (Acute) Headache (Acute) Neck pain (Acute) Acute maxillary sinusitis (Acute) CT of brain reviewed with notation of near complete opacification of right maxillary sinus, thickening of left sphenoid sinus lining consistent with acute sinusitis. This would not typically present with the patient complaint of posterior headache and is most likely an incidental finding. As there is no worrisome findings, treatment with Amoxicillin as first line treatment for community acquired sinusitis would be most appropriate for a 10 day course given her underlying diabetes. Follow-up as an outpatient to ensure resolution is offered if desired. Ongoing pursuit of her severe posterior headache complaint should be pursued with migraine considered given photophobia.
[2018-01-12 14:11] VITALS: BP 133/69; PULSE 69; RESP 16; TEMP 37.2; O2SAT 95
--- NOTE | 2018-01-12 14:48 | PCM.PROGNOTE ---
Patient Problems: Active and Suspected Problems Meningitis (Acute) Headache (Acute) Neck pain (Acute) Acute maxillary sinusitis (Acute) Subjective: Pt reported no improvement at all in headache with IV depakote or fioricet. She describes 8/10 all over head pain, worse behind the eyes, and with 4/10 neck pain. She also has light sensitivity with nausea. She fell yesterday striking her right face. CT head and neck were negative. Both prior CTs with sinusitis but she has not had severe facial pain prior to the fall. She also did not have complaints of rhinorrhea or congestion. No fevers or chills. - Physical Exam General: Alert, Oriented x3, Cooperative HEENT: Atraumatic, PERRLA, EOMI, Normocephalic, - - right maxillary tenderness, bruising. Neck: Supple, No JVD, Negative Carotid Bruits Lungs: Clear to auscultation, Normal air movement Cardiovascular: Regular rate, No murmurs Abdomen: Bowel Sounds Present, Soft, Non Tender, Obese Extremities: No edema, Capillary Refill Less than 3 Seconds Skin: No rashes, No breakdown Musculoskeletal: No Tenderness to Palpation of Joints or Extremities Neurological: Cranial nerves II-XII grossly intact Psych/Mental Status: Normal Affect, Appropriate Vital Signs Temp Pulse Resp BP Pulse Ox 98.9 F 69 16 133/69 H 95 01/12/18 14:11 01/12/18 14:11 01/12/18 14:11 01/12/18 14:11 01/12/18 14:11 Oxygen Delivery Method Room Air Weight: 169.1 kg Body Mass Index (BMI) 58.5 Intake and Output for Last 24 Hours 01/10/18 01/11/18 01/12/18 23:59 23:59 23:59 Intake Total 2450 / 2450 1111 / 1111 Balance 2450 / 2450 1111 / 1111 Microbiology Past 72 Hours 01/11/18 14:40 - Final Mucosa - Nasopharyngeal POC Glucose 01/12/18 01/12/18 01/11/18 11:41 06:21 23:53 POC Glucose 348 H 442 H 410 H 01/11/18 16:24 POC Glucose 338 H Medical Necessity - Tobacco Use Smoking Status: Former smoker Tobacco Use: Non-smoker Assessment/Plan Active and Suspected Problems Meningitis (Acute) Headache (Acute) Neck pain (Acute) Acute maxillary sinusitis (Acute) 1. Headache/Neck pain - possibly migraine. Neuro consulted. Failed depakote, fioricet. She will receive decadron and acetazoladime. Meningitis ruled out per infectious disease. No fever or leukocytosis. Abx and Acyclovir have been discontinued. She will be started on fioricet for headache. ENT has also been consulted for sinusitis - they note her symptomology is not consistent with sinusitis despite that CT scan findings and regardless - Unasyn will cover this. She will need outpatient ENT follow up. -LP was negative for meningitis -Flu and strep tests neg -herpes culture pending -Blood cx pending 2. BLE posterior cellulitis - ID has changed Ancef to Unasyn 3. 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 Levemir added - Increase as poorly controlled. She will need to continue metformin with additional agent at discharge. A1C is 11.5. 4. Dysuria / Urinary retention - UA unremarkable. 5. HTN - Improved. 6. Hx of endometrial cancer in remission since 2014 s/p hysterectomy, radiation therapy. 7. ADD - ritalin 8. Anx/Depression - continue home meds 9. HLD - statin DVT ppx: lovenox This patient was seen by Shamar Davies PA-C under the supervision of Doctor Montalvo.
[2018-01-12 16:36] LABS: Bedside Glucose 369 mg/dL (70-110)
[2018-01-12 20:48] VITALS: BP 141/81; PULSE 78; RESP 14; TEMP 36.6; O2SAT 97
[2018-01-12] MEDS: Amitriptyline 25 MG Tablet 50 MG PO (22:46)
[2018-01-12] MEDS: proMETHazine 25 MG/ML Syringe 12.5 MG IV (22:46)
[2018-01-12] MEDS: Atorvastatin Calcium 10 MG Tablet PO (22:46)
[2018-01-12] MEDS: Topiramate 25 MG Tablet PO (22:46)
[2018-01-12 23:16] LABS: Bedside Glucose 360 mg/dL (70-110)
[2018-01-13] MEDS: Acetaminophen 325 MG Tablet 650 MG PO ×2 (00:17→06:17)
[2018-01-13] MEDS: DiphenhydrAMINE 50 MG/ML Syringe IV ×2 (00:17→06:18)
--- NOTE | 2018-01-13 01:28 | NURSING ---
D/T pts fall on 01/11, strongly encouraged pt to call us when she needed to use the restroom. Pt has not been compliant and is currently experiencing increased dizziness & disorientation (making statements that don't make contextual sense). Bed alarm set.
[2018-01-13 02:36] VITALS: BP 125/68; PULSE 63; RESP 16; TEMP 36.2; O2SAT 97
[2018-01-13 02:51] LABS: Bedside Glucose 320 mg/dL (70-110)
[2018-01-13] MEDS: clonazePAM 0.5 MG Tablet PO ×3 (06:01→21:21)
[2018-01-13] MEDS: Dicyclomine 10 MG Capsule 20 MG PO ×4 (06:02→21:20)
[2018-01-13 06:26] LABS: Bedside Glucose 303 mg/dL (70-110)
[2018-01-13 07:53] VITALS: BP 148/77; PULSE 65; RESP 12; TEMP 36.6; O2SAT 99
[2018-01-13] MEDS: Lisinopril 5 MG Tablet PO (09:28)
[2018-01-13] MEDS: Pantoprazole Sodium 20 MG Tablet PO (09:29)
[2018-01-13] MEDS: AcetaZOLAMIDE 250 MG Tablet PO ×3 (09:29→17:44)
[2018-01-13] MEDS: Amitriptyline 25 MG Tablet 50 MG PO ×2 (09:30→21:20)
[2018-01-13] MEDS: Enoxaparin 40 MG/0.4 ML Syringe SC (09:30)
[2018-01-13] MEDS: Sertraline 100 MG Tablet 200 MG PO (09:30)
[2018-01-13] MEDS: Topiramate 25 MG Tablet PO ×2 (09:31→21:20)
[2018-01-13] MEDS: guaiFENesin 1,200 MG Tablet 1200 MG PO ×2 (09:31→21:21)
--- NOTE | 2018-01-13 09:34 | PCM.PN.HOSP ---
Patient Problems: Active and Suspected Problems Meningitis (Acute) Headache (Acute) Neck pain (Acute) Acute maxillary sinusitis (Acute) Subjective: CC: headache Vitals/I&O's: Vital Signs Temp Pulse Resp BP Pulse Ox 97.9 F 65 12 148/77 H 99 01/13/18 07:53 01/13/18 07:53 01/13/18 07:53 01/13/18 07:53 01/13/18 07:53 Oxygen Delivery Method Room Air Weight: 169.1 kg Body Mass Index (BMI) 58.5 Intake and Output for Last 24 Hours 01/11/18 01/12/18 01/13/18 23:59 23:59 23:59 Intake Total 2450 / 2450 1111 / 1111 1257 / 1257 Balance 2450 / 2450 1111 / 1111 1257 / 1257 Microbiology Past 72 Hours 01/11/18 14:40 Mucosa - Nasopharyngeal - Final Laboratory Results 01/12/18 11:41: POC Glucose 348 H 01/12/18 16:17: POC Glucose 369 H 01/12/18 23:07: POC Glucose 360 H 01/13/18 02:44: POC Glucose 320 H 01/13/18 06:12: POC Glucose 303 H Current Medications Acetaminophen (Tylenol) 650 mg PO Q6H PRN PRN PRN Reason: Mild Pain (1-3)/Temp > 100.7 F Last Admin: 01/13/18 06:17 Dose: 650 mg Acetazolamide (Diamox) 250 mg PO TIDCM [facility] Last Admin: 01/12/18 16:25 Dose: 250 mg Amitriptyline HCl (Elavil) 50 mg PO BID [facility] Last Admin: 01/12/18 22:46 Dose: 50 mg Atorvastatin Calcium (Lipitor) 10 mg PO QHS [facility] Last Admin: 01/12/18 22:46 Dose: 10 mg Clonazepam (Klonopin) 0.5 mg PO TID [facility] Last Admin: 01/13/18 06:01 Dose: 0.5 mg Dexamethasone Sodium Phosphate (Decadron) 4 mg IV Q6 [facility] Last Admin: 01/13/18 06:01 Dose: 4 mg Dextrose (D50w Syringe) 0 gm IV X1 PRN; Protocol PRN Reason: Hypoglycemia Dicyclomine HCl (Bentyl) 10 mg PO TIDAC PRN PRN Reason: Cramp Dicyclomine HCl (Bentyl) 20 mg PO ACHS [facility] Last Admin: 01/13/18 06:02 Dose: 20 mg Diphenhydramine HCl (Benadryl) 50 mg IV Q6H PRN PRN PRN Reason: HEADACHE Last Admin: 01/13/18 06:18 Dose: 50 mg Enoxaparin Sodium (Lovenox) 40 mg SC DAILY@1000 [facility] Last Admin: 01/12/18 10:27 Dose: 40 mg Glucagon () 1 mg IM .X1 PRN PRN Reason: Hypoglycemia Guaifenesin (Mucinex) 1,200 mg PO BID [facility] Last Admin: 01/12/18 22:46 Dose: 1,200 mg Ampicillin Sodium/Sulbactam (Sodium 3 gm/ Sodium Chloride) 112 mls @ 150 mls/hr IV Q8 [facility] Last Admin: 01/13/18 06:02 Dose: 150 mls/hr Insulin Aspart (Novolog Flexpen ([facility])) 0 units SC TIDAC [facility] PRN Reason: Protocol Last Admin: 01/13/18 06:13 Dose: 4 u Insulin Detemir (Levemir (Bkc)) 20 units SC QHS [facility] Last Admin: 01/12/18 23:08 Dose: 20 u Lisinopril (Zestril) 5 mg PO DAILY [facility] Last Admin: 01/12/18 10:37 Dose: 5 mg Magnesium Hydroxide (Milk Of Magnesia) 30 ml PO DAILY PRN PRN PRN Reason: Constipation [facility] Last Admin: 01/12/18 16:25 Dose: 500 mg Methylphenidate HCl (Ritalin (G)) 10 mg PO BID [facility] Last Admin: 01/12/18 22:59 Dose: 10 mg Ondansetron HCl (Zofran Odt) 4 mg PO Q8H PRN PRN PRN Reason: NAUSEA Pantoprazole Sodium (Protonix) 20 mg PO DAILY [facility] Last Admin: 01/12/18 10:27 Dose: 20 mg Promethazine HCl (Phenergan Iv) 12.5 mg IV Q6H PRN PRN PRN Reason: NAUSEA/VOMITING Last Admin: 01/12/18 22:46 Dose: 12.5 mg Sertraline HCl (Zoloft) 200 mg PO DAILY [facility] Last Admin: 01/12/18 10:27 Dose: 200 mg Sodium Chloride () 5 - 30 ml IV UD PRN PRN Reason: SALINE FLUSH Last Admin: 01/12/18 18:08 Dose: 10 ml Topiramate (Topamax) 25 mg PO BID [facility] Last Admin: 01/12/18 22:46 Dose: 25 mg Medical Necessity - Tobacco Use Smoking Status: Former smoker Tobacco Use: Non-smoker Assessment/Plan Active and Suspected Problems Meningitis (Acute) Headache (Acute) Neck pain (Acute) Acute maxillary sinusitis (Acute) 1. Headache/Neck pain; 2. BLE posterior cellulitis ; on Unasyn 3. DM 2 with hyperglycemia; 4. Acute sinusitis; antibiotic above, [place] change to PO Augmentin soon. 5.. HTN - Improved. 6. Hx of endometrial cancer in remission since 2014 s/p hysterectomy, radiation therapy. 7. ADD - ritalin 8. Anx/Depression - continue home meds 9. HLD - statin 10. Obesity ; weight loss recommended.
[2018-01-13] MEDS: Methylphenidate HCl 5 MG Tablet 10 MG PO ×2 (09:36→21:20)
--- NOTE | 2018-01-13 09:37 | PN_ITS ---
Patient Problems: Active and Suspected Problems Meningitis (Acute) Headache (Acute) Neck pain (Acute) Acute maxillary sinusitis (Acute) Subjective: CC: headache Vitals/I&O's: Vital Signs Temp Pulse Resp BP Pulse Ox 97.9 F 65 12 148/77 H 99 01/13/18 07:53 01/13/18 07:53 01/13/18 07:53 01/13/18 07:53 01/13/18 07:53 Oxygen Delivery Method Room Air Weight: 169.1 kg Body Mass Index (BMI) 58.5 Intake and Output for Last 24 Hours 01/11/18 01/12/18 01/13/18 23:59 23:59 23:59 Intake Total 2450 / 2450 1111 / 1111 1257 / 1257 Balance 2450 / 2450 1111 / 1111 1257 / 1257 Microbiology Past 72 Hours 01/11/18 14:40 Mucosa - Nasopharyngeal - Final Laboratory Results 01/12/18 11:41: POC Glucose 348 H 01/12/18 16:17: POC Glucose 369 H 01/12/18 23:07: POC Glucose 360 H 01/13/18 02:44: POC Glucose 320 H 01/13/18 06:12: POC Glucose 303 H Current Medications Acetaminophen (Tylenol) 650 mg PO Q6H PRN PRN PRN Reason: Mild Pain (1-3)/Temp > 100.7 F Last Admin: 01/13/18 06:17 Dose: 650 mg Acetazolamide (Diamox) 250 mg PO TIDCM [facility] Last Admin: 01/12/18 16:25 Dose: 250 mg Amitriptyline HCl (Elavil) 50 mg PO BID [facility] Last Admin: 01/12/18 22:46 Dose: 50 mg Atorvastatin Calcium (Lipitor) 10 mg PO QHS [facility] Last Admin: 01/12/18 22:46 Dose: 10 mg Clonazepam (Klonopin) 0.5 mg PO TID [facility] Last Admin: 01/13/18 06:01 Dose: 0.5 mg Dexamethasone Sodium Phosphate (Decadron) 4 mg IV Q6 [facility] Last Admin: 01/13/18 06:01 Dose: 4 mg Dextrose (D50w Syringe) 0 gm IV X1 PRN; Protocol PRN Reason: Hypoglycemia Dicyclomine HCl (Bentyl) 10 mg PO TIDAC PRN PRN Reason: Cramp Dicyclomine HCl (Bentyl) 20 mg PO ACHS [facility] Last Admin: 01/13/18 06:02 Dose: 20 mg Diphenhydramine HCl (Benadryl) 50 mg IV Q6H PRN PRN PRN Reason: HEADACHE Last Admin: 01/13/18 06:18 Dose: 50 mg Enoxaparin Sodium (Lovenox) 40 mg SC DAILY@1000 [facility] Last Admin: 01/12/18 10:27 Dose: 40 mg Glucagon () 1 mg IM .X1 PRN PRN Reason: Hypoglycemia Guaifenesin (Mucinex) 1,200 mg PO BID [facility] Last Admin: 01/12/18 22:46 Dose: 1,200 mg Ampicillin Sodium/Sulbactam (Sodium 3 gm/ Sodium Chloride) 112 mls @ 150 mls/ hr IV Q8 [facility] Last Admin: 01/13/18 06:02 Dose: 150 mls/hr Insulin Aspart (Novolog Flexpen ([facility])) 0 units SC TIDAC [facility] PRN Reason: Protocol Last Admin: 01/13/18 06:13 Dose: 4 u Insulin Detemir (Levemir (Bkc)) 20 units SC QHS [facility] Last Admin: 01/12/18 23:08 Dose: 20 u Lisinopril (Zestril) 5 mg PO DAILY [facility] Last Admin: 01/12/18 10:37 Dose: 5 mg Magnesium Hydroxide (Milk Of Magnesia) 30 ml PO DAILY PRN PRN PRN Reason: Constipation [facility] ([facility]) [facility] Last Admin: 01/12/18 16:25 Dose: 500 mg Methylphenidate HCl (Ritalin (G)) 10 mg PO BID [facility] Last Admin: 01/12/18 22:59 Dose: 10 mg Ondansetron HCl (Zofran Odt) 4 mg PO Q8H PRN PRN PRN Reason: NAUSEA Pantoprazole Sodium (Protonix) 20 mg PO DAILY [facility] Last Admin: 01/12/18 10:27 Dose: 20 mg Promethazine HCl (Phenergan Iv) 12.5 mg IV Q6H PRN PRN PRN Reason: NAUSEA/VOMITING Last Admin: 01/12/18 22:46 Dose: 12.5 mg Sertraline HCl (Zoloft) 200 mg PO DAILY [facility] Last Admin: 01/12/18 10:27 Dose: 200 mg Sodium Chloride () 5 - 30 ml IV UD PRN PRN Reason: SALINE FLUSH Last Admin: 01/12/18 18:08 Dose: 10 ml Topiramate (Topamax) 25 mg PO BID [facility] Last Admin: 01/12/18 22:46 Dose: 25 mg Medical Necessity - Tobacco Use Smoking Status: Former smoker Tobacco Use: Non-smoker Assessment/Plan Active and Suspected Problems Meningitis (Acute) Headache (Acute) Neck pain (Acute) Acute maxillary sinusitis (Acute) 1. Headache/Neck pain; 2. BLE posterior cellulitis ; on Unasyn 3. DM 2 with hyperglycemia; 4. Acute sinusitis; antibiotic above, [place] change to PO Augmentin soon. 5.. HTN - Improved. 6. Hx of endometrial cancer in remission since 2014 s/p hysterectomy, radiation therapy. 7. ADD - ritalin 8. Anx/Depression - continue home meds 9. HLD - statin 10. Obesity ; weight loss recommended.
[2018-01-13 13:41] LABS: Bedside Glucose 407 mg/dL (70-110)
--- NOTE | 2018-01-13 14:15 | PCM.PN.HOSP ---
Patient Problems: Active and Suspected Problems Meningitis (Acute) Headache (Acute) Neck pain (Acute) Acute maxillary sinusitis (Acute) Subjective: CC: Headache Objective: Patient reports significant occipital headache and neck pain, question more analgesia for headache. She reports no nausea or vomiting she is able to keep food down. Vitals/I&O's: Vital Signs Temp Pulse Resp BP Pulse Ox 97.9 F 65 12 148/77 H 99 01/13/18 07:53 01/13/18 07:53 01/13/18 07:53 01/13/18 07:53 01/13/18 07:53 Oxygen Delivery Method Room Air Weight: 169.1 kg Body Mass Index (BMI) 58.5 Intake and Output for Last 24 Hours 01/11/18 01/12/18 01/13/18 23:59 23:59 23:59 Intake Total 2450 / 2450 1111 / 1111 1507 / 1507 Balance 2450 / 2450 1111 / 1111 1507 / 1507 General: Alert, Oriented x3 Oral: Moist Mucosa Neck: Supple, No JVD Lungs: Clear to auscultation Cardiovascular: Regular rate, Normal S1, Normal S2 Abdomen: Bowel Sounds Present, Soft, Non Tender, Non-Distended Extremities: No edema Neurological: Cranial nerves II-XII grossly intact, Motor Exam 5/5 strength throughout Psych/Mental Status: Normal Affect Microbiology Past 72 Hours 01/11/18 14:40 Mucosa - Nasopharyngeal - Final Laboratory Results 01/12/18 16:17: POC Glucose 369 H 01/12/18 23:07: POC Glucose 360 H 01/13/18 02:44: POC Glucose 320 H 01/13/18 06:12: POC Glucose 303 H 01/13/18 13:24: POC Glucose 407 H Current Medications Acetaminophen (Tylenol) 650 mg PO Q6H PRN PRN PRN Reason: Mild Pain (1-3)/Temp > 100.7 F Last Admin: 01/13/18 06:17 Dose: 650 mg Acetaminophen/Butalbital/Caffeine (Fioricet) 1 tablet PO Q4H PRN PRN PRN Reason: HEADACHE Acetazolamide (Diamox) 250 mg PO TIDCM [facility] Last Admin: 01/13/18 12:03 Dose: 250 mg Amitriptyline HCl (Elavil) 50 mg PO BID [facility] Last Admin: 01/13/18 09:30 Dose: 50 mg Atorvastatin Calcium (Lipitor) 10 mg PO QHS [facility] Last Admin: 01/12/18 22:46 Dose: 10 mg Clonazepam (Klonopin) 0.5 mg PO TID [facility] Last Admin: 01/13/18 06:01 Dose: 0.5 mg Dexamethasone Sodium Phosphate (Decadron) 4 mg IV Q6 [facility] Last Admin: 01/13/18 12:03 Dose: 4 mg Dextrose (D50w Syringe) 0 gm IV X1 PRN; Protocol PRN Reason: Hypoglycemia Dicyclomine HCl (Bentyl) 10 mg PO TIDAC PRN PRN Reason: Cramp Dicyclomine HCl (Bentyl) 20 mg PO ACHS [facility] Last Admin: 01/13/18 12:02 Dose: 20 mg Diphenhydramine HCl (Benadryl) 50 mg IV Q6H PRN PRN PRN Reason: HEADACHE Last Admin: 01/13/18 06:18 Dose: 50 mg Enoxaparin Sodium (Lovenox) 40 mg SC DAILY@1000 [facility] Last Admin: 01/13/18 09:30 Dose: 40 mg Glucagon () 1 mg IM .X1 PRN PRN Reason: Hypoglycemia Guaifenesin (Mucinex) 1,200 mg PO BID [facility] Last Admin: 01/13/18 09:31 Dose: 1,200 mg Ampicillin Sodium/Sulbactam (Sodium 3 gm/ Sodium Chloride) 112 mls @ 150 mls/hr IV Q8 [facility] Last Admin: 01/13/18 06:02 Dose: 150 mls/hr Insulin Aspart (Novolog Flexpen (Bkc)) 0 units SC TIDAC [facility] PRN Reason: Protocol Last Admin: 01/13/18 13:33 Dose: 7 u Insulin Detemir (Levemir (Bkc)) 20 units SC QHS [facility] Last Admin: 01/12/18 23:08 Dose: 20 u Lisinopril (Zestril) 5 mg PO DAILY [facility] Last Admin: 01/13/18 09:28 Dose: 5 mg Magnesium Hydroxide (Milk Of Magnesia) 30 ml PO DAILY PRN PRN PRN Reason: Constipation [facility] Last Admin: 01/13/18 09:29 Dose: 500 mg Methylphenidate HCl (Ritalin (G)) 10 mg PO BID [facility] Last Admin: 01/13/18 09:36 Dose: 10 mg Ondansetron HCl (Zofran Odt) 4 mg PO Q8H PRN PRN PRN Reason: NAUSEA Pantoprazole Sodium (Protonix) 20 mg PO DAILY [facility] Last Admin: 01/13/18 09:29 Dose: 20 mg Promethazine HCl (Phenergan Iv) 12.5 mg IV Q6H PRN PRN PRN Reason: NAUSEA/VOMITING Last Admin: 01/12/18 22:46 Dose: 12.5 mg Sertraline HCl (Zoloft) 200 mg PO DAILY [facility] Last Admin: 01/13/18 09:30 Dose: 200 mg Sodium Chloride () 5 - 30 ml IV UD PRN PRN Reason: SALINE FLUSH Last Admin: 01/12/18 18:08 Dose: 10 ml Topiramate (Topamax) 25 mg PO BID [facility] Last Admin: 01/13/18 09:31 Dose: 25 mg Medical Necessity - Tobacco Use Smoking Status: Former smoker Tobacco Use: Non-smoker Assessment/Plan Active and Suspected Problems Meningitis (Acute) Headache (Acute) Neck pain (Acute) Acute maxillary sinusitis (Acute) 1. Headache/Neck pain; likely represents status migrainosus, meningitis has been ruled out, she is currently on IV dexamethasone she is also on Diamox on Topamax 2. BLE posterior cellulitis ; on IV Unasyn 3. DM 2 with hyperglycemia; her hyperglycemia is worsened by steroids, she is on IV Levemir and regular insulin sliding scale. 4. Acute sinusitis; antibiotic above, will change to PO Augmentin soon. 5. Acute Streptococcal pharyngitis the patient is receiving Unasyn and will transition to p.o. Augmentin soon. 6. HTN ; this is controlled. 7. History of endometrial cancer ; in remission since 2014, she is s/p hysterectomy and radiation therapy. 8. ADD; she is on Ritalin 9. Obesity ; weight loss recommended. 10. DVT prophylaxis with Lovenox. Code Visit Inpatient E&M: 30427 [facility] Hosp L2
--- NOTE | 2018-01-13 14:18 | PN_ITS ---
Patient Problems: Active and Suspected Problems Meningitis (Acute) Headache (Acute) Neck pain (Acute) Acute maxillary sinusitis (Acute) Subjective: CC: Headache Objective: Patient reports significant occipital headache and neck pain, question more analgesia for headache. She reports no nausea or vomiting she is able to keep food down. Vitals/I&O's: Vital Signs Temp Pulse Resp BP Pulse Ox 97.9 F 65 12 148/77 H 99 01/13/18 07:53 01/13/18 07:53 01/13/18 07:53 01/13/18 07:53 01/13/18 07:53 Oxygen Delivery Method Room Air Weight: 169.1 kg Body Mass Index (BMI) 58.5 Intake and Output for Last 24 Hours 01/11/18 01/12/18 01/13/18 23:59 23:59 23:59 Intake Total 2450 / 2450 1111 / 1111 1507 / 1507 Balance 2450 / 2450 1111 / 1111 1507 / 1507 General: Alert, Oriented x3 Oral: Moist Mucosa Neck: Supple, No JVD Lungs: Clear to auscultation Cardiovascular: Regular rate, Normal S1, Normal S2 Abdomen: Bowel Sounds Present, Soft, Non Tender, Non-Distended Extremities: No edema Neurological: Cranial nerves II-XII grossly intact, Motor Exam 5/5 strength throughout Psych/Mental Status: Normal Affect Microbiology Past 72 Hours 01/11/18 14:40 Mucosa - Nasopharyngeal - Final Laboratory Results 01/12/18 16:17: POC Glucose 369 H 01/12/18 23:07: POC Glucose 360 H 01/13/18 02:44: POC Glucose 320 H 01/13/18 06:12: POC Glucose 303 H 01/13/18 13:24: POC Glucose 407 H Current Medications Acetaminophen (Tylenol) 650 mg PO Q6H PRN PRN PRN Reason: Mild Pain (1-3)/Temp > 100.7 F Last Admin: 01/13/18 06:17 Dose: 650 mg Acetaminophen/Butalbital/Caffeine (Fioricet) 1 tablet PO Q4H PRN PRN PRN Reason: HEADACHE Acetazolamide (Diamox) 250 mg PO TIDCM [facility] Last Admin: 01/13/18 12:03 Dose: 250 mg Amitriptyline HCl (Elavil) 50 mg PO BID [facility] Last Admin: 01/13/18 09:30 Dose: 50 mg Atorvastatin Calcium (Lipitor) 10 mg PO QHS [facility] Last Admin: 01/12/18 22:46 Dose: 10 mg Clonazepam (Klonopin) 0.5 mg PO TID [facility] Last Admin: 01/13/18 06:01 Dose: 0.5 mg Dexamethasone Sodium Phosphate (Decadron) 4 mg IV Q6 [facility] Last Admin: 01/13/18 12:03 Dose: 4 mg Dextrose (D50w Syringe) 0 gm IV X1 PRN; Protocol PRN Reason: Hypoglycemia Dicyclomine HCl (Bentyl) 10 mg PO TIDAC PRN PRN Reason: Cramp Dicyclomine HCl (Bentyl) 20 mg PO ACHS [facility] Last Admin: 01/13/18 12:02 Dose: 20 mg Diphenhydramine HCl (Benadryl) 50 mg IV Q6H PRN PRN PRN Reason: HEADACHE Last Admin: 01/13/18 06:18 Dose: 50 mg Enoxaparin Sodium (Lovenox) 40 mg SC DAILY@1000 [facility] Last Admin: 01/13/18 09:30 Dose: 40 mg Glucagon () 1 mg IM .X1 PRN PRN Reason: Hypoglycemia Guaifenesin (Mucinex) 1,200 mg PO BID [facility] Last Admin: 01/13/18 09:31 Dose: 1,200 mg Ampicillin Sodium/Sulbactam (Sodium 3 gm/ Sodium Chloride) 112 mls @ 150 mls/ hr IV Q8 [facility] Last Admin: 01/13/18 06:02 Dose: 150 mls/hr Insulin Aspart (Novolog Flexpen (Bkc)) 0 units SC TIDAC [facility] PRN Reason: Protocol Last Admin: 01/13/18 13:33 Dose: 7 u Insulin Detemir (Levemir (Bkc)) 20 units SC QHS [facility] Last Admin: 01/12/18 23:08 Dose: 20 u Lisinopril (Zestril) 5 mg PO DAILY [facility] Last Admin: 01/13/18 09:28 Dose: 5 mg Magnesium Hydroxide (Milk Of Magnesia) 30 ml PO DAILY PRN PRN PRN Reason: Constipation [facility] Last Admin: 01/13/18 09:29 Dose: 500 mg Methylphenidate HCl (Ritalin (G)) 10 mg PO BID [facility] Last Admin: 01/13/18 09:36 Dose: 10 mg Ondansetron HCl (Zofran Odt) 4 mg PO Q8H PRN PRN PRN Reason: NAUSEA Pantoprazole Sodium (Protonix) 20 mg PO DAILY [facility] Last Admin: 01/13/18 09:29 Dose: 20 mg Promethazine HCl (Phenergan Iv) 12.5 mg IV Q6H PRN PRN PRN Reason: NAUSEA/VOMITING Last Admin: 01/12/18 22:46 Dose: 12.5 mg Sertraline HCl (Zoloft) 200 mg PO DAILY [facility] Last Admin: 01/13/18 09:30 Dose: 200 mg Sodium Chloride () 5 - 30 ml IV UD PRN PRN Reason: SALINE FLUSH Last Admin: 01/12/18 18:08 Dose: 10 ml Topiramate (Topamax) 25 mg PO BID [facility] Last Admin: 01/13/18 09:31 Dose: 25 mg Medical Necessity - Tobacco Use Smoking Status: Former smoker Tobacco Use: Non-smoker Assessment/Plan Active and Suspected Problems Meningitis (Acute) Headache (Acute) Neck pain (Acute) Acute maxillary sinusitis (Acute) 1. Headache/Neck pain; likely represents status migrainosus, meningitis has been ruled out, she is currently on IV dexamethasone she is also on Diamox on Topamax 2. BLE posterior cellulitis ; on IV Unasyn 3. DM 2 with hyperglycemia; her hyperglycemia is worsened by steroids, she is on IV Levemir and regular insulin sliding scale. 4. Acute sinusitis; antibiotic above, will change to PO Augmentin soon. 5. Acute Streptococcal pharyngitis the patient is receiving Unasyn and will transition to p.o. Augmentin soon. 6. HTN ; this is controlled. 7. History of endometrial cancer ; in remission since 2014, she is s/p hysterectomy and radiation therapy. 8. ADD; she is on Ritalin 9. Obesity ; weight loss recommended. 10. DVT prophylaxis with Lovenox. Code Visit Inpatient E&M: [id number] [facility] Hosp L2
[2018-01-13 14:49] VITALS: BP 133/79; PULSE 89; RESP 16; TEMP 36.7; O2SAT 96
[2018-01-13 14:52] VITALS: BP 133/79; BP 139/88; BP 141/91; PULSE 125; PULSE 90; PULSE 96
[2018-01-13] MEDS: Acetaminophen/Butalbital/Caffe 1 Tablet PO (18:04)
[2018-01-13 18:31] LABS: Bedside Glucose 388 mg/dL (70-110)
[2018-01-13] MEDS: Ondansetron ODT 4 MG Tablet PO (20:50)
[2018-01-13 20:52] VITALS: BP 110/77; PULSE 85; RESP 16; TEMP 36.7; O2SAT 96
[2018-01-13] MEDS: 0.9% NaCl Peripheral Flush Adult/Peds IV (21:20)
[2018-01-13] MEDS: Atorvastatin Calcium 10 MG Tablet PO (21:20)
[2018-01-13 21:45] LABS: Bedside Glucose > 500 mg/dL (70-110)
[2018-01-14 02:34] VITALS: BP 119/74; PULSE 82; RESP 16; TEMP 36.7; O2SAT 94
[2018-01-14 04:16] LABS: Bedside Glucose 448 mg/dL (70-110)
--- NOTE | 2018-01-14 06:12 | NURSING ---
At patients bedside patient has a cookie tin, per patient in the tin she had tylenol. This RN asked to open the tin and patient said okay. When opened this RN found 5 white oblong pills and 4 round yellow pills. Per patient she has not taken any of these since admitted to the floor. Per patient the white ones are tylenol and the yellow ones are klonopin. When asked about the dosage of klonopin patient stated that it was 0.5mg each. Patient instructed not to take these pills. This RN told patient that she locked patient meds in bottom drawer with patient name in the tin and she could have them back when she goes home. patient did not argue with this Rn and was very cooperative.
[2018-01-14] MEDS: Acetaminophen/Butalbital/Caffe 1 Tablet PO (06:19)
[2018-01-14] MEDS: Dicyclomine 10 MG Capsule 20 MG PO ×4 (06:19→21:11)
[2018-01-14] MEDS: 0.9% NaCl Peripheral Flush Adult/Peds IV ×2 (06:20→21:12)
[2018-01-14] MEDS: clonazePAM 0.5 MG Tablet PO ×2 (06:20→13:21)
[2018-01-14 06:46] LABS: Bedside Glucose > 500 mg/dL (70-110)
[2018-01-14 07:55] VITALS: BP 167/95; PULSE 97; RESP 16; TEMP 36.8; O2SAT 95
[2018-01-14] MEDS: Topiramate 25 MG Tablet PO (07:59)
[2018-01-14] MEDS: Sertraline 100 MG Tablet 200 MG PO (08:00)
[2018-01-14] MEDS: Lisinopril 5 MG Tablet PO (08:00)
[2018-01-14] MEDS: Pantoprazole Sodium 20 MG Tablet PO (08:00)
[2018-01-14] MEDS: AcetaZOLAMIDE 250 MG Tablet PO ×3 (08:01→17:17)
[2018-01-14] MEDS: Amitriptyline 25 MG Tablet 50 MG PO (08:02)
[2018-01-14] MEDS: Enoxaparin 40 MG/0.4 ML Syringe SC (08:03)
[2018-01-14] MEDS: guaiFENesin 1,200 MG Tablet 1200 MG PO ×2 (08:03→21:11)
[2018-01-14 08:08] LABS: Enterovirus By PCR Negative (Negative)
[2018-01-14] MEDS: Methylphenidate HCl 5 MG Tablet 10 MG PO (08:10)
--- NOTE | 2018-01-14 08:45 | PN_ITS ---
Patient Problems: Active and Suspected Problems Meningitis (Acute) Headache (Acute) Neck pain (Acute) Acute maxillary sinusitis (Acute) Subjective: CC: Intractable headache Objective: Interval history: This is a 27-year-old female with morbid obesity, type 2 diabetes and other multiple medical problems listed below who was sent to the emergency room from the primary care doctor's office when she presented with headache, neck pain and fever. She underwent a lumbar puncture and meningitis was ultimately ruled out. She was see by neurology and she is felt to have acute status migrainosus . She is currently on Topamax, Diamox and IV dexamethasone. Cc complains of significant occipital headache which he rates as 7 out of 10. Other than her headache and hyperglycemia from steroids, no other acute events reported overnight. Vitals/I&O's: Vital Signs Temp Pulse Resp BP Pulse Ox 98.2 F 97 16 167/95 H 95 01/14/18 07:55 01/14/18 07:55 01/14/18 07:55 01/14/18 07:55 01/14/18 07:55 Oxygen Delivery Method Room Air Weight: 169.1 kg Body Mass Index (BMI) 58.5 Orthostatic Vital Signs Start: 01/13/18 14:52 Freq: q24h Status: Active Protocol: Activity Type Activity Date Activity User E-Sign Co-Sign Detail Recorded Client Recorded Date Recorded By Document 01/13/18 14:52 [facility] [id number] 01/13/18 14:58 [facility] 01/13/18 14:52 Orthostatic Vitals Standing -Blood Pressure (90/60-120/80) 139/88 H -Extremity Use Left Arm -Pulse Rate (60-100) 125 H Sitting -Blood Pressure (90/60-120/80) 141/91 H -Extremity Use Left Arm -Pulse Rate (60-100) 96 Lying -Blood Pressure (90/60-120/80) 133/79 H -Extremity Use Left Arm -Pulse Rate (60-100) 90 Intake and Output for Last 24 Hours 01/12/18 01/13/18 01/14/18 23:59 23:59 23:59 Intake Total 1111 / 1111 2169 / 2169 Balance 1111 / 1111 2169 / 2169 Microbiology Past 72 Hours 01/11/18 14:40 Mucosa - Nasopharyngeal - Final Laboratory Results 01/13/18 13:24: POC Glucose 407 H 01/13/18 17:42: POC Glucose 388 H 01/13/18 21:03: POC Glucose > 500 H* 01/14/18 04:12: POC Glucose 448 H 01/14/18 06:27: POC Glucose > 500 H* Current Medications Acetaminophen (Tylenol) 650 mg PO Q6H PRN PRN PRN Reason: Mild Pain (1-3)/Temp > 100.7 F Last Admin: 01/13/18 06:17 Dose: 650 mg Acetaminophen/Butalbital/Caffeine (Fioricet) 1 tablet PO Q4H PRN PRN PRN Reason: HEADACHE Last Admin: 01/14/18 06:19 Dose: 1 tablet Acetazolamide (Diamox) 250 mg PO TIDCM [facility] Last Admin: 01/14/18 08:01 Dose: 250 mg Amitriptyline HCl (Elavil) 50 mg PO BID [facility] Last Admin: 01/14/18 08:02 Dose: 50 mg Atorvastatin Calcium (Lipitor) 10 mg PO QHS [facility] Last Admin: 01/13/18 21:20 Dose: 10 mg Clonazepam (Klonopin) 0.5 mg PO TID [facility] Last Admin: 01/14/18 06:20 Dose: 0.5 mg Dexamethasone Sodium Phosphate (Decadron) 4 mg IV Q12 [facility] Last Admin: 01/14/18 08:02 Dose: 4 mg Dextrose (D50w Syringe) 0 gm IV X1 PRN; Protocol PRN Reason: Hypoglycemia Dicyclomine HCl (Bentyl) 10 mg PO TIDAC PRN PRN Reason: Cramp Dicyclomine HCl (Bentyl) 20 mg PO ACHS [facility] Last Admin: 01/14/18 06:19 Dose: 20 mg Enoxaparin Sodium (Lovenox) 40 mg SC DAILY@1000 [facility] Last Admin: 01/14/18 08:03 Dose: 40 mg Glucagon () 1 mg IM .X1 PRN PRN Reason: Hypoglycemia Guaifenesin (Mucinex) 1,200 mg PO BID [facility] Last Admin: 01/14/18 08:03 Dose: 1,200 mg Ampicillin Sodium/Sulbactam (Sodium 3 gm/ Sodium Chloride) 112 mls @ 150 mls/ hr IV Q8 [facility] Last Admin: 01/14/18 06:19 Dose: 150 mls/hr Insulin Aspart (Novolog Flexpen (Bk)) 0 units SC TIDAC [facility] PRN Reason: Protocol Last Admin: 01/14/18 06:53 Dose: 7 u Insulin Detemir (Levemir (Bk)) 20 units SC QHS [facility] Last Admin: 01/13/18 21:22 Dose: 20 u Lisinopril (Zestril) 5 mg PO DAILY [facility] Last Admin: 01/14/18 08:00 Dose: 5 mg Magnesium Hydroxide (Milk Of Magnesia) 30 ml PO DAILY PRN PRN PRN Reason: Constipation [facility] Last Admin: 01/14/18 08:00 Dose: 500 mg Methylphenidate HCl (Ritalin (G)) 10 mg PO BID [facility] Last Admin: 01/14/18 08:10 Dose: 10 mg Ondansetron HCl (Zofran Odt) 4 mg PO Q8H PRN PRN PRN Reason: NAUSEA Last Admin: 01/13/18 20:50 Dose: 4 mg Pantoprazole Sodium (Protonix) 20 mg PO DAILY [facility] Last Admin: 01/14/18 08:00 Dose: 20 mg Promethazine HCl (Phenergan Iv) 12.5 mg IV Q6H PRN PRN PRN Reason: NAUSEA/VOMITING Last Admin: 01/12/18 22:46 Dose: 12.5 mg Sertraline HCl (Zoloft) 200 mg PO DAILY [facility] Last Admin: 01/14/18 08:00 Dose: 200 mg Sodium Chloride () 5 - 30 ml IV UD PRN PRN Reason: SALINE FLUSH Last Admin: 01/14/18 06:20 Dose: 20 ml Topiramate (Topamax) 25 mg PO BID [facility] Last Admin: 01/14/18 07:59 Dose: 25 mg Medical Necessity - Tobacco Use Smoking Status: Former smoker Tobacco Use: Non-smoker Assessment/Plan Active and Suspected Problems Meningitis (Acute) Headache (Acute) Neck pain (Acute) Acute maxillary sinusitis (Acute) 1. Intractable headache ; this represents status migrainosus, meningitis has been ruled out, she is currently on IV dexamethasone Topamax and Diamox. Will change to p.o. dexamethasone today. 2. BLE posterior cellulitis ; she is on IV Unasyn 3. DM 2 with hyperglycemia; her hyperglycemia is worsened by steroids, Metformin increased to 1000mg bid, we will increase Levemir and continue regular insulin sliding scale, she will be given NovoLog 70/30 with steroids. 4. Acute sinusitis; ENT was consulted and they recommended 10 days of Augmentin. 5. Acute Streptococcal pharyngitis the patient is receiving Unasyn and will transition to p.o. Augmentin soon. 6. HTN ; this is controlled. 7. History of endometrial cancer ; in remission since 2014, she is s/p hysterectomy and radiation therapy. 8. ADD; she is on Ritalin 9. Obesity ; weight loss recommended. 10. Presumptive SLOANE/OHHS; will obtain nocturnal pulse oximetry and recommend formal outpatient sleep study for CPAP qualification. 11. DVT prophylaxis with Lovenox. Code Visit Inpatient E&M: 37310 [facility] Hosp L2
[2018-01-14 09:11] LABS: Bedside Glucose > 500 mg/dL (70-110)
[2018-01-14 12:50] LABS: Bedside Glucose 443 mg/dL (70-110)
[2018-01-14] MEDS: Acetaminophen 325 MG Tablet 650 MG PO ×2 (13:20→23:14)
[2018-01-14 15:00] VITALS: BP 132/84; PULSE 88; RESP 18; TEMP 36.8; O2SAT 94
[2018-01-14] MEDS: metFORMIN HCl 1,000 MG Tablet 1000 MG PO (17:17)
[2018-01-14 17:30] LABS: Bedside Glucose 362 mg/dL (70-110)
[2018-01-14 20:43] VITALS: BP 126/76; PULSE 86; RESP 16; TEMP 36.7; O2SAT 94
--- NOTE | 2018-01-14 20:50 | NURSING ---
This RN went into patients room to do VS and assessment, PLASTICATOR went into room with this RN during this time. Patient had her eyes open during this time. Patient asked if she needed to use the bathroom and she said yes. During this time this RN asked patient is she knew what month it was and where she was, each if which she was unable to answer correctly. Patient also noted as having a very delayed response time to questions and had trouble focusing eyes. This RN and PLASTICATOR were able to walk patient into the bathroom, gait unsteady. Patient sat on toilet and found to be incontinent in attends. Patient was able to void during this time as well. While sitting in the bathroom with lights on patients eyes noted as being very dilated and still having trouble focusing on this RN. New gown and attends applied via PLASTICATOR. This RN and PLASTICATOR assisted patient back to bed, gait still unsteady, bed alarm applied. This RN told patient that she was going to speak to the doctor of her medications. Also during report from the dayshift RN to this RN, was told that the patient slept most of the day. This RN also had this patient last night as well, and patient slept soundly and was incontinent if urine last night as well.
[2018-01-14] MEDS: Atorvastatin Calcium 10 MG Tablet PO (21:11)
[2018-01-14 22:35] LABS: Bedside Glucose 457 mg/dL (70-110)
--- NOTE | 2018-01-14 22:56 | NURSING ---
Patient is currently laying in bed awake, texting on her phone. Rounding completed by this RN, patient voiced no needs at this time. Bed alarm on.
[2018-01-14] MEDS: Ondansetron ODT 4 MG Tablet PO (23:14)
[2018-01-15 03:15] VITALS: BP 115/69; PULSE 80; RESP 18; TEMP 36.6; O2SAT 94
[2018-01-15] MEDS: 0.9% NaCl Peripheral Flush Adult/Peds IV (06:01)
[2018-01-15 06:45] LABS: Bedside Glucose 342 mg/dL (70-110)
[2018-01-15 09:15] VITALS: BP 120/79; PULSE 72; RESP 18; TEMP 36.9; O2SAT 96
[2018-01-15] MEDS: Dicyclomine 10 MG Capsule 20 MG PO ×4 (09:32→21:15)
[2018-01-15] MEDS: Pantoprazole Sodium 20 MG Tablet PO (09:33)
[2018-01-15] MEDS: metFORMIN HCl 1,000 MG Tablet 1000 MG PO ×2 (09:33→17:06)
[2018-01-15] MEDS: Lisinopril 5 MG Tablet PO (09:33)
[2018-01-15] MEDS: Sertraline 100 MG Tablet 200 MG PO (09:33)
[2018-01-15] MEDS: AcetaZOLAMIDE 250 MG Tablet PO ×2 (09:34→11:53)
[2018-01-15] MEDS: guaiFENesin 1,200 MG Tablet 1200 MG PO ×2 (09:34→21:14)
[2018-01-15] MEDS: Amitriptyline 25 MG Tablet 50 MG PO ×2 (09:34→21:17)
[2018-01-15] MEDS: Enoxaparin 40 MG/0.4 ML Syringe SC (09:35)
[2018-01-15] MEDS: Topiramate 25 MG Tablet PO (09:35)
[2018-01-15] MEDS: Methylphenidate HCl 5 MG Tablet 10 MG PO (09:47)
--- NOTE | 2018-01-15 11:08 | PCM.DC ---
- Discharge Diagnoses Current Active Problems: Current Active and Chronic Problems Meningitis (Acute) Headache (Acute) Neck pain (Acute) Endometrial cancer (Chronic) DM2 (diabetes mellitus, type 2) (Chronic) Morbid obesity (Chronic) Hypertension (Chronic) Hyperlipidemia (Chronic) Depression (Chronic) Acute maxillary sinusitis (Acute) You will use the following diet at home:: Calorie/Carbohydrate Controlled (specify 1200, 1400, etc) - 1800 ADA Discharge Activity: May Not Drive Additional Instructions: accucheck AC and HS daily Allergies/Adverse Reactions: Allergies ibuprofen Allergy (Verified 01/10/18 16:48) Laryngospasms ketorolac [From Toradol] Allergy (Verified 01/10/18 16:48) Hives morphine Allergy (Verified 01/10/18 16:48) Hives naproxen Allergy (Verified 01/10/18 16:48) Laryngospasms Medications to take at Discharge Clonazepam [Klonopin] 0.5 mg PO TID 10/22/16 Sertraline HCl [Zoloft] 200 mg PO DAILY 10/22/16 Methylphenidate HCl [Ritalin] 10 mg PO BID 12/29/16 Omeprazole [Prilosec] 10 mg PO DAILY 02/21/17 Ondansetron [Zofran Odt] 4 mg PO Q8H PRN PRN #10 tablet 07/19/17 Dicyclomine HCl [Bentyl] 10 mg PO TIDAC PRN #20 capsule 09/15/17 Atorvastatin Calcium [Lipitor] 10 mg PO QHS 01/10/18 Lisinopril [Prinivil] 5 mg PO DAILY 01/10/18 Dicyclomine HCl [Bentyl] 20 mg PO ACHS 01/11/18 Metformin HCl [Glucophage] 1,000 mg PO BIDCM 01/11/18 AcetaAZOLAMIDE [Diamox] 250 mg PO TIDCM #60 tab 01/15/18 Acetaminophen/Butalbital/Caffe [Fioricet] 1 tablet PO Q4H PRN PRN tablet 01/15/18 Amoxicillin/Potassium Clav [Augmentin 875-125 Tablet] 1 ea PO BID #14 tab 01/15/18 Dexamethasone [Decadron] See Protocol PO BIDCM #19 tab 01/15/18 Guaifenesin [Mucinex] 1,200 mg PO BID 7 Days tablet 01/15/18 Insulin Human 70/30 [Novolog Mix 70-30 Flexpen Syrn] 20 units SC BIDAC #1 flexpen 01/15/18 Topiramate [Topamax] 25 mg PO BID #30 tab 01/15/18 The following prescriptions were given: Insulin Human 70/30 [Novolog Mix 70-30 Flexpen Syrn] 20 units SC BIDAC #1 flexpen Amoxicillin/Potassium Clav [Augmentin 875-125 Tablet] 1 ea PO BID #14 tab Dexamethasone [Decadron] See Protocol PO BIDCM #19 tab Topiramate [Topamax] 25 mg PO BID #30 tab AcetaAZOLAMIDE [Diamox] 250 mg PO TIDCM #60 tab Primary Care Physician: Alejandra Cruz PA [Primary Care Provider] - Please follow up with your Primary Care Physician in: IN 2 Weeks Please Follow Up With: Sunny Simpson MD When: in 3-4 weeks for headache, possible psedotumor cerebri Please Follow Up With: Augustine Alonzo MD When: in 2-3 weeks for sinusitis Please Follow Up With: Jossy Cota [employer] When: for uncontrolled DM-2
--- NOTE | 2018-01-15 11:11 | DCINST_ITS ---
- Discharge Diagnoses Current Active Problems: Current Active and Chronic Problems Meningitis (Acute) Headache (Acute) Neck pain (Acute) Endometrial cancer (Chronic) DM2 (diabetes mellitus, type 2) (Chronic) Morbid obesity (Chronic) Hypertension (Chronic) Hyperlipidemia (Chronic) Depression (Chronic) Acute maxillary sinusitis (Acute) You will use the following diet at home:: Calorie/Carbohydrate Controlled ( specify 1200, 1400, etc) - 1800 ADA Discharge Activity: May Not Drive Additional Instructions: accucheck AC and HS daily Allergies/Adverse Reactions: Allergies ibuprofen Allergy (Verified 01/10/18 16:48) Laryngospasms ketorolac [From Toradol] Allergy (Verified 01/10/18 16:48) Hives morphine Allergy (Verified 01/10/18 16:48) Hives naproxen Allergy (Verified 01/10/18 16:48) Laryngospasms Medications to take at Discharge Clonazepam [Klonopin] 0.5 mg PO TID 10/22/16 Sertraline HCl [Zoloft] 200 mg PO DAILY 10/22/16 Methylphenidate HCl [Ritalin] 10 mg PO BID 12/29/16 Omeprazole [Prilosec] 10 mg PO DAILY 02/21/17 Ondansetron [Zofran Odt] 4 mg PO Q8H PRN PRN #10 tablet 07/19/17 Dicyclomine HCl [Bentyl] 10 mg PO TIDAC PRN #20 capsule 09/15/17 Atorvastatin Calcium [Lipitor] 10 mg PO QHS 01/10/18 Lisinopril [Prinivil] 5 mg PO DAILY 01/10/18 Dicyclomine HCl [Bentyl] 20 mg PO ACHS 01/11/18 Metformin HCl [Glucophage] 1,000 mg PO BIDCM 01/11/18 AcetaAZOLAMIDE [Diamox] 250 mg PO TIDCM #60 tab 01/15/18 Acetaminophen/Butalbital/Caffe [Fioricet] 1 tablet PO Q4H PRN PRN tablet Amoxicillin/Potassium Clav [Augmentin 875-125 Tablet] 1 ea PO BID #14 tab Dexamethasone [Decadron] See Protocol PO BIDCM #19 tab 01/15/18 Guaifenesin [Mucinex] 1,200 mg PO BID 7 Days tablet 01/15/18 Insulin Human 70/30 [Novolog Mix 70-30 Flexpen Syrn] 20 units SC BIDAC #1 flexpen 01/15/18 Topiramate [Topamax] 25 mg PO BID #30 tab 01/15/18 The following prescriptions were given: Insulin Human 70/30 [Novolog Mix 70-30 Flexpen Syrn] 20 units SC BIDAC #1 flexpen Amoxicillin/Potassium Clav [Augmentin 875-125 Tablet] 1 ea PO BID #14 tab Dexamethasone [Decadron] See Protocol PO BIDCM #19 tab Topiramate [Topamax] 25 mg PO BID #30 tab AcetaAZOLAMIDE [Diamox] 250 mg PO TIDCM #60 tab Primary Care Physician: Alejandra Cruz PA [Primary Care Provider] - Please follow up with your Primary Care Physician in: IN 2 Weeks Please Follow Up With: Sunny Simpson MD When: in 3-4 weeks for headache, possible psedotumor cerebri Please Follow Up With: Augustine Alonzo MD When: in 2-3 weeks for sinusitis Please Follow Up With: Jossy Cota [employer] SAL[employer] REPRESENTATIVE-C When: for uncontrolled DM-2
--- NOTE | 2018-01-15 11:11 | DS.PCM_ITS ---
Discharge Date and Diagnosis - Problem List Patient Problems: Active and Suspected Problems Meningitis (Acute) Headache (Acute) Neck pain (Acute) Acute maxillary sinusitis (Acute) Date of Admission: 01/10/18 Date of Discharge: 01/16/18 - Primary Discharge Diagnosis Active and Suspected Problems Intractable headache pain; this represents status migrainosus, meningitis has been ruled out; probably acute maxillary sinusitis. Clinical suspicion of pseudotumor cerebri Bilateral lower extremities cellulitis Diabetes mellitus type 2 with hyperglycemia: Acute maxillary sinusitis Morbid obesity - Secondary Discharge Diagnosis Chronic Problems Endometrial cancer (Chronic) DM2 (diabetes mellitus, type 2) (Chronic) Morbid obesity (Chronic) Hypertension (Chronic) Hyperlipidemia (Chronic) Depression (Chronic) Radiation (Chronic) Uterine cancer (Chronic) Hospital Course and Treatment Summary of Care Provided: [] This 27-year-old , morbidly obese female was admitted for 4 days of cough, neck pain and headache. She had temperature 102.9?F in the PCP office. She had LP done and meningitis was ruled out. CSF culture is negative for more than 72 hours. Seen and examined today, 01/16/2018 1. Intractable headache ; this represents status migrainosus, meningitis has been ruled out, she on IV dexamethasone which is changed to oral dexamethasone Topamax and Diamox. Topamax and Diamox dose increased after discussion with the neurologist, Dr. Landeros. There is suspicion of possible pseudotumor cerebri with history of morbid obesity. Unenhanced MRI reported normal. 2. BLE posterior cellulitis ; she is on IV Unasyn. Her cellulitis is improved and rash has resolved. She was discharged on 7 more days of Augmentin as recommended by ENT for sinusitis 3. DM 2 with hyperglycemia; her hyperglycemia is worsened by steroids. On metformin, Levemir and continue NovoLog insulin sliding scale, NovoLog 70/30 with steroids. 4. Acute sinusitis; ENT was consulted and they recommended Augmentin. 5. Acute Streptococcal pharyngitis the patient is receiving Unasyn and transitioned to Augmentin on discharge 6. HTN ; this is controlled. 7. History of endometrial cancer ; in remission since 2014, she is s/p hysterectomy and radiation therapy. 8. ADD; she is on Ritalin 9. Obesity ; weight loss recommended. 10. Presumptive SLOANE/OHHS; will obtain nocturnal pulse oximetry and recommend formal outpatient sleep study for CPAP qualification. 11. DVT prophylaxis with Lovenox. Charge medication reconciliation done. Discharge follow-up instructions given. Patient needs to follow-up with the neurologist, Dr. Simpson. Total time spent, exact 32 minutes on discharge meds reconciliation, examination , review of imaging and blood test and discussion with the patient on follow-up instructions. Clinical Impression(s) from Imaging Studies Chest X-Ray 01/10/18 17:12 IMPRESSION: No acute cardiopulmonary disease. Electronically Signed: Martin Vega MD at 18:12 EDT , Service support , Brain CT 01/10/18 20:24 IMPRESSION: No acute intracranial abnormality. Sinusitis. Electronically Signed: Hima Mcclain at 20:57 EDT Tel , Service support , Brain CT 01/11/18 22:29 IMPRESSION: No fracture or hemorrhage. Electronically Signed: Leeroy Diallo MD at 23:45 EDT Tel , Service support , Cervical Spine CT 01/11/18 22:29 IMPRESSION: Straightening of the cervical spine with otherwise normal alignment. Negative for acute fracture of the cervical spine. Extensive mucosal thickening noted in the left sphenoid sinus. Mild area of mucosal thickening in the right sphenoid sinus. Electronically Signed: Rashida Rose MD at 23:46 EDT , Service support , Brain MRI 01/16/18 16:03 IMPRESSION: Normal unenhanced MRI of the brain. Electronically Signed: Vladimir Wooten MD at 13:27 EDT , Service support , Discharge Activity: May Not Drive Home Medications: Medications to take at Discharge Clonazepam [Klonopin] 0.5 mg PO TID 10/22/16 Sertraline HCl [Zoloft] 200 mg PO DAILY 10/22/16 Methylphenidate HCl [Ritalin] 10 mg PO DAILY 12/29/16 Omeprazole [Prilosec] 10 mg PO DAILY 02/21/17 Ondansetron [Zofran Odt] 4 mg PO Q8H PRN PRN #10 tablet 07/19/17 Atorvastatin Calcium [Lipitor] 10 mg PO QHS 01/10/18 Lisinopril [Prinivil] 5 mg PO DAILY 01/10/18 Dicyclomine HCl [Bentyl] 20 mg PO ACHS 01/11/18 Metformin HCl [Glucophage] 1,000 mg PO BIDCM 01/11/18 Acetaminophen/Butalbital/Caffe [Fioricet] 1 tablet PO Q4H PRN PRN tablet Amoxicillin/Potassium Clav [Augmentin 875-125 Tablet] 1 ea PO BID #14 tab Dexamethasone [Decadron] See Protocol PO BIDCM #19 tab 01/15/18 Guaifenesin [Mucinex] 1,200 mg PO BID 7 Days tablet 01/15/18 Methylphenidate HCl [Ritalin] 20 mg PO 1500 01/15/18 AcetaAZOLAMIDE [Diamox] 500 mg PO TIDCM #90 tab 01/16/18 Insulin Human 70/30 [Novolog Mix 70-30 Flexpen Syrn] 30 units SC BIDAC flexpen 01/16/18 Topiramate [Topamax] 50 mg PO BID #60 tab 01/16/18 Following Prescrptions Were Given to Patient: Amoxicillin/Potassium Clav [Augmentin 875-125 Tablet] 1 ea PO BID #14 tab Dexamethasone [Decadron] See Protocol PO BIDCM #19 tab Topiramate [Topamax] 50 mg PO BID #60 tab AcetaAZOLAMIDE [Diamox] 500 mg PO TIDCM #90 tab Primary Care Physician: Alejandra Cruz PA [Primary Care Provider] - Please follow up with your Primary Care Physician in: IN 2 Weeks Please Follow Up With: Sunny Simpson MD When: in 3-4 weeks for headache, possible psedotumor cerebri Please Follow Up With: Augustine Alonzo MD When: in 2-3 weeks for sinusitis Please Follow Up With: Jossy Cota, STEM ROLLER OR CRUSHER OPERATOR-C When: for uncontrolled DM-2 Medical Necessity - Tobacco Use Smoking Status: Former smoker Tobacco Use: Non-smoker Meaningful Use Info Meaningful Use Diagnoses (Choose all that apply): None applicable Code Visit Inpatient E&M: 01855 Disch Hosp
[2018-01-15 12:00] LABS: Bedside Glucose 413 mg/dL (70-110)
[2018-01-15 14:38] VITALS: BP 130/83; PULSE 92; RESP 18; TEMP 37.2; O2SAT 95
[2018-01-15] MEDS: clonazePAM 0.5 MG Tablet PO ×2 (15:46→21:49)
[2018-01-15] MEDS: Topiramate 25 MG Tablet 50 MG PO ×2 (15:49→21:14)
[2018-01-15] MEDS: AcetaZOLAMIDE 250 MG Tablet 500 MG PO (17:06)
[2018-01-15 17:15] LABS: Bedside Glucose 418 mg/dL (70-110)
--- NOTE | 2018-01-15 17:17 | PCM.PN.HOSP ---
Patient Problems: Active and Suspected Problems Meningitis (Acute) Headache (Acute) Neck pain (Acute) Acute maxillary sinusitis (Acute) Subjective: Patient has history of anxiety and depression. She is morbidly obese. She is still complaining of occipital and neck pain 8/10 out of intensity. Initially, as per the nursing staff report, she was refusing for MRI as recommended by neurologist but now agreed. She is on Topamax, Diamox and IV dexamethasone. She was seen by neurologist. Vitals/I&O's: Vital Signs Temp Pulse Resp BP Pulse Ox 98.9 F 92 18 130/83 H 95 01/15/18 14:38 01/15/18 14:38 01/15/18 14:38 01/15/18 14:38 01/15/18 14:38 Oxygen Delivery Method Room Air Weight: 372 lb 12.827 oz Body Mass Index (BMI) 58.5 Orthostatic Vital Signs Start: 01/13/18 14:52 Freq: q24h Status: Active Protocol: Activity Type Activity Date Activity User E-Sign Co-Sign Detail Recorded Client Recorded Date Recorded By Document 01/13/18 14:52 [facility] [id number] 01/13/18 14:58 [facility] 01/13/18 14:52 Orthostatic Vitals Standing -Blood Pressure (90/60-120/80) 139/88 H -Extremity Use Left Arm -Pulse Rate (60-100) 125 H Sitting -Blood Pressure (90/60-120/80) 141/91 H -Extremity Use Left Arm -Pulse Rate (60-100) 96 Lying -Blood Pressure (90/60-120/80) 133/79 H -Extremity Use Left Arm -Pulse Rate (60-100) 90 Intake and Output for Last 24 Hours 01/13/18 01/14/18 01/15/18 23:59 23:59 23:59 Intake Total 2168 / 2168 1180 / 1180 1560 / 1560 Balance 2168 1180 / 1180 1560 / 1560 General: Alert, Oriented x3, Cooperative HEENT: Atraumatic, PERRLA, EOMI, Normocephalic Neck: Supple, No JVD, Negative Carotid Bruits, No Nuchal Rigidity Lungs: Clear to auscultation, Diminished Cardiovascular: Regular rate, Regular Rhythm, Normal S1, Normal S2, No murmurs Abdomen: Bowel Sounds Present, Soft, Non Tender, Non-Distended Extremities: No edema, Capillary Refill Less than 3 Seconds Skin: No rashes, No breakdown Musculoskeletal: No Tenderness to Palpation of Joints or Extremities, Arthritic Changes Neurological: Cranial nerves II-XII grossly intact Psych/Mental Status: Normal Affect, Appropriate Laboratory Results 01/14/18 17:13: POC Glucose 362 H 01/14/18 21:07: POC Glucose 457 H* 01/15/18 06:35: POC Glucose 342 H 01/15/18 11:48: POC Glucose 413 H 01/15/18 17:03: POC Glucose 418 H Current Medications Acetaminophen (Tylenol) 650 mg PO Q6H PRN PRN PRN Reason: Mild Pain (1-3)/Temp > 100.7 F Last Admin: 01/14/18 23:14 Dose: 650 mg Acetaminophen/Butalbital/Caffeine (Fioricet) 1 tablet PO Q4H PRN PRN PRN Reason: HEADACHE Last Admin: 01/14/18 06:19 Dose: 1 tablet Acetazolamide (Diamox) 500 mg PO TIDCM [facility] Last Admin: 01/15/18 17:06 Dose: 500 mg Amitriptyline HCl (Elavil) 50 mg PO BID [facility] Last Admin: 01/15/18 09:34 Dose: 50 mg Atorvastatin Calcium (Lipitor) 10 mg PO QHS [facility] Last Admin: 01/14/18 21:11 Dose: 10 mg Calamine/Phenol (Calmoseptine Ointment) 1 applic TOPICAL BID [facility] PRN Reason: Protocol Clonazepam (Klonopin) 0.5 mg PO TID [facility] Last Admin: 01/15/18 15:46 Dose: 0.5 mg Dexamethasone (Decadron) 4 mg PO BIDCM [facility] Last Admin: 01/15/18 17:06 Dose: 4 mg Dextrose (D50w Syringe) 0 gm IV X1 PRN; Protocol PRN Reason: Hypoglycemia Dicyclomine HCl (Bentyl) 10 mg PO TIDAC PRN PRN Reason: Cramp Dicyclomine HCl (Bentyl) 20 mg PO ACHS [facility] Last Admin: 01/15/18 15:47 Dose: 20 mg Enoxaparin Sodium (Lovenox) 40 mg SC DAILY@1000 [facility] Last Admin: 01/15/18 09:35 Dose: 40 mg Glucagon () 1 mg IM .X1 PRN PRN Reason: Hypoglycemia Guaifenesin (Mucinex) 1,200 mg PO BID [facility] Last Admin: 01/15/18 09:34 Dose: 1,200 mg Ampicillin Sodium/Sulbactam (Sodium 3 gm/ Sodium Chloride) 112 mls @ 150 mls/hr IV Q8 [facility] Last Admin: 01/15/18 15:46 Dose: 150 mls/hr Insulin Aspart (Novolog Flexpen (Bkc)) 0 units SC TIDAC [facility] PRN Reason: Protocol Last Admin: 01/15/18 17:06 Dose: 7 u Insulin Aspart (Novolog Mix 70-30 Flexpen Syrn) 10 units SC BIDAC [facility] Last Admin: 01/15/18 17:07 Dose: 10 u Insulin Detemir (Levemir (Bkc)) 35 units SC BID [facility] Last Admin: 01/15/18 09:34 Dose: 35 u Lisinopril (Zestril) 5 mg PO DAILY [facility] Last Admin: 01/15/18 09:33 Dose: 5 mg Magnesium Hydroxide (Milk Of Magnesia) 30 ml PO DAILY PRN PRN PRN Reason: Constipation [facility] Last Admin: 01/15/18 17:06 Dose: 1,000 mg Methylphenidate HCl (Ritalin (G)) 10 mg PO BID [facility] Last Admin: 01/15/18 09:47 Dose: 10 mg Nystatin (Mycostatin Powder) 1 applic TOPICAL TID [facility] PRN Reason: Protocol Ondansetron HCl (Zofran Odt) 4 mg PO Q8H PRN PRN PRN Reason: NAUSEA Last Admin: 01/14/18 23:14 Dose: 4 mg Pantoprazole Sodium (Protonix) 20 mg PO DAILY [facility] Last Admin: 01/15/18 09:33 Dose: 20 mg Promethazine HCl (Phenergan Iv) 12.5 mg IV Q6H PRN PRN PRN Reason: NAUSEA/VOMITING Last Admin: 01/12/18 22:46 Dose: 12.5 mg Sertraline HCl (Zoloft) 200 mg PO DAILY [facility] Last Admin: 01/15/18 09:33 Dose: 200 mg Sodium Chloride () 5 - 30 ml IV UD PRN PRN Reason: SALINE FLUSH Last Admin: 01/15/18 06:01 Dose: 10 ml Topiramate (Topamax) 50 mg PO BID [facility] Last Admin: 01/15/18 15:49 Dose: 50 mg Medical Necessity - Tobacco Use Smoking Status: Former smoker Tobacco Use: Non-smoker Assessment/Plan Active and Suspected Problems Meningitis (Acute) Headache (Acute) Neck pain (Acute) Acute maxillary sinusitis (Acute) This 27-year-old , morbidly obese female was admitted for 4 days of cough, neck pain and headache. She had temperature 102.9?F in the PCP office. She had LP done and meningitis was ruled out. CSF culture is negative for more than 72 hours. 1. Intractable headache ; this represents status migrainosus, meningitis has been ruled out, she on IV dexamethasone Topamax and Diamox. Changed to p.o. dexamethasone. Topamax and Diamox dose increased after discussion with the neurologist, Dr. Landeros. There is suspicion of possible pseudotumor cerebri with history of morbid obesity. MRI ordered. Patient has history of left leg screw and plate after ankle fracture when she was child and does not remember details. She is also claustrophobic. 2. BLE posterior cellulitis ; she is on IV Unasyn. Her cellulitis is improved and rash has resolved. 3. DM 2 with hyperglycemia; her hyperglycemia is worsened by steroids. On metformin, Levemir and continue NovoLog insulin sliding scale, NovoLog 70/30 with steroids. 4. Acute sinusitis; ENT was consulted and they recommended 10 days of Augmentin. 5. Acute Streptococcal pharyngitis the patient is receiving Unasyn and will transition to p.o. Augmentin soon. 6. HTN ; this is controlled. 7. History of endometrial cancer ; in remission since 2014, she is s/p hysterectomy and radiation therapy. 8. ADD; she is on Ritalin 9. Obesity ; weight loss recommended. 10. Presumptive SLOANE/OHHS; will obtain nocturnal pulse oximetry and recommend formal outpatient sleep study for CPAP qualification. 11. DVT prophylaxis with Lovenox. Discussed with the patient's and she agreed for doing MRI brain. Discharge is postponed for tomorrow. Further recommendation as per MRI. Code Visit Inpatient E&M: 68376 Subs Hosp L3
--- NOTE | 2018-01-15 17:25 | PN_ITS ---
Patient Problems: Active and Suspected Problems Meningitis (Acute) Headache (Acute) Neck pain (Acute) Acute maxillary sinusitis (Acute) Subjective: Patient has history of anxiety and depression. She is morbidly obese. She is still complaining of occipital and neck pain 8/10 out of intensity. Initially, as per the nursing staff report, she was refusing for MRI as recommended by neurologist but now agreed. She is on Topamax, Diamox and IV dexamethasone. She was seen by neurologist. Vitals/I&O's: Vital Signs Temp Pulse Resp BP Pulse Ox 98.9 F 92 18 130/83 H 95 01/15/18 14:38 01/15/18 14:38 01/15/18 14:38 01/15/18 14:38 01/15/18 14:38 Oxygen Delivery Method Room Air Weight: 372 lb 12.827 oz Body Mass Index (BMI) 58.5 Orthostatic Vital Signs Start: 01/13/18 14:52 Freq: q24h Status: Active Protocol: Activity Type Activity Date Activity User E-Sign Co-Sign Detail Recorded Client Recorded Date Recorded By Document 01/13/18 14:52 [facility] [id number] 01/13/18 14:58 [facility] 01/13/18 14:52 Orthostatic Vitals Standing -Blood Pressure (90/60-120/80) 139/88 H -Extremity Use Left Arm -Pulse Rate (60-100) 125 H Sitting -Blood Pressure (90/60-120/80) 141/91 H -Extremity Use Left Arm -Pulse Rate (60-100) 96 Lying -Blood Pressure (90/60-120/80) 133/79 H -Extremity Use Left Arm -Pulse Rate (60-100) 90 Intake and Output for Last 24 Hours 01/13/18 01/14/18 01/15/18 23:59 23:59 23:59 Intake Total 2168 / 2168 1180 / 1180 1560 / 1560 Balance 2168 1180 / 1180 1560 / 1560 General: Alert, Oriented x3, Cooperative HEENT: Atraumatic, PERRLA, EOMI, Normocephalic Neck: Supple, No JVD, Negative Carotid Bruits, No Nuchal Rigidity Lungs: Clear to auscultation, Diminished Cardiovascular: Regular rate, Regular Rhythm, Normal S1, Normal S2, No murmurs Abdomen: Bowel Sounds Present, Soft, Non Tender, Non-Distended Extremities: No edema, Capillary Refill Less than 3 Seconds Skin: No rashes, No breakdown Musculoskeletal: No Tenderness to Palpation of Joints or Extremities, Arthritic Changes Neurological: Cranial nerves II-XII grossly intact Psych/Mental Status: Normal Affect, Appropriate Laboratory Results 01/14/18 17:13: POC Glucose 362 H 01/14/18 21:07: POC Glucose 457 H* 01/15/18 06:35: POC Glucose 342 H 01/15/18 11:48: POC Glucose 413 H 01/15/18 17:03: POC Glucose 418 H Current Medications Acetaminophen (Tylenol) 650 mg PO Q6H PRN PRN PRN Reason: Mild Pain (1-3)/Temp > 100.7 F Last Admin: 01/14/18 23:14 Dose: 650 mg Acetaminophen/Butalbital/Caffeine (Fioricet) 1 tablet PO Q4H PRN PRN PRN Reason: HEADACHE Last Admin: 01/14/18 06:19 Dose: 1 tablet Acetazolamide (Diamox) 500 mg PO TIDCM [facility] Last Admin: 01/15/18 17:06 Dose: 500 mg Amitriptyline HCl (Elavil) 50 mg PO BID [facility] Last Admin: 01/15/18 09:34 Dose: 50 mg Atorvastatin Calcium (Lipitor) 10 mg PO QHS [facility] Last Admin: 01/14/18 21:11 Dose: 10 mg Calamine/Phenol (Calmoseptine Ointment) 1 applic TOPICAL BID [facility] PRN Reason: Protocol Clonazepam (Klonopin) 0.5 mg PO TID [facility] Last Admin: 01/15/18 15:46 Dose: 0.5 mg Dexamethasone (Decadron) 4 mg PO BIDCM [facility] Last Admin: 01/15/18 17:06 Dose: 4 mg Dextrose (D50w Syringe) 0 gm IV X1 PRN; Protocol PRN Reason: Hypoglycemia Dicyclomine HCl (Bentyl) 10 mg PO TIDAC PRN PRN Reason: Cramp Dicyclomine HCl (Bentyl) 20 mg PO ACHS [facility] Last Admin: 01/15/18 15:47 Dose: 20 mg Enoxaparin Sodium (Lovenox) 40 mg SC DAILY@1000 [facility] Last Admin: 01/15/18 09:35 Dose: 40 mg Glucagon () 1 mg IM .X1 PRN PRN Reason: Hypoglycemia Guaifenesin (Mucinex) 1,200 mg PO BID [facility] Last Admin: 01/15/18 09:34 Dose: 1,200 mg Ampicillin Sodium/Sulbactam (Sodium 3 gm/ Sodium Chloride) 112 mls @ 150 mls/ hr IV Q8 [facility] Last Admin: 01/15/18 15:46 Dose: 150 mls/hr Insulin Aspart (Novolog Flexpen (Bkc)) 0 units SC TIDAC [facility] PRN Reason: Protocol Last Admin: 01/15/18 17:06 Dose: 7 u Insulin Aspart (Novolog Mix 70-30 Flexpen Syrn) 10 units SC BIDAC [facility] Last Admin: 01/15/18 17:07 Dose: 10 u Insulin Detemir (Levemir (Bkc)) 35 units SC BID [facility] Last Admin: 01/15/18 09:34 Dose: 35 u Lisinopril (Zestril) 5 mg PO DAILY [facility] Last Admin: 01/15/18 09:33 Dose: 5 mg Magnesium Hydroxide (Milk Of Magnesia) 30 ml PO DAILY PRN PRN PRN Reason: Constipation [facility] ([facility]) [facility] Last Admin: 01/15/18 17:06 Dose: 1,000 mg Methylphenidate HCl (Ritalin (G)) 10 mg PO BID [facility] Last Admin: 01/15/18 09:47 Dose: 10 mg Nystatin (Mycostatin Powder) 1 applic TOPICAL TID [facility] PRN Reason: Protocol Ondansetron HCl (Zofran Odt) 4 mg PO Q8H PRN PRN PRN Reason: NAUSEA Last Admin: 01/14/18 23:14 Dose: 4 mg Pantoprazole Sodium (Protonix) 20 mg PO DAILY [facility] Last Admin: 01/15/18 09:33 Dose: 20 mg Promethazine HCl (Phenergan Iv) 12.5 mg IV Q6H PRN PRN PRN Reason: NAUSEA/VOMITING Last Admin: 01/12/18 22:46 Dose: 12.5 mg Sertraline HCl (Zoloft) 200 mg PO DAILY [facility] Last Admin: 01/15/18 09:33 Dose: 200 mg Sodium Chloride () 5 - 30 ml IV UD PRN PRN Reason: SALINE FLUSH Last Admin: 01/15/18 06:01 Dose: 10 ml Topiramate (Topamax) 50 mg PO BID [facility] Last Admin: 01/15/18 15:49 Dose: 50 mg Medical Necessity - Tobacco Use Smoking Status: Former smoker Tobacco Use: Non-smoker Assessment/Plan Active and Suspected Problems Meningitis (Acute) Headache (Acute) Neck pain (Acute) Acute maxillary sinusitis (Acute) This 27-year-old , morbidly obese female was admitted for 4 days of cough, neck pain and headache. She had temperature 102.9?F in the PCP office. She had LP done and meningitis was ruled out. CSF culture is negative for more than 72 hours. 1. Intractable headache ; this represents status migrainosus, meningitis has been ruled out, she on IV dexamethasone Topamax and Diamox. Changed to p.o. dexamethasone. Topamax and Diamox dose increased after discussion with the neurologist, Dr. Landeros. There is suspicion of possible pseudotumor cerebri with history of morbid obesity. MRI ordered. Patient has history of left leg screw and plate after ankle fracture when she was child and does not remember details. She is also claustrophobic. 2. BLE posterior cellulitis ; she is on IV Unasyn. Her cellulitis is improved and rash has resolved. 3. DM 2 with hyperglycemia; her hyperglycemia is worsened by steroids. On metformin, Levemir and continue NovoLog insulin sliding scale, NovoLog 70/30 with steroids. 4. Acute sinusitis; ENT was consulted and they recommended 10 days of Augmentin. 5. Acute Streptococcal pharyngitis the patient is receiving Unasyn and will transition to p.o. Augmentin soon. 6. HTN ; this is controlled. 7. History of endometrial cancer ; in remission since 2014, she is s/p hysterectomy and radiation therapy. 8. ADD; she is on Ritalin 9. Obesity ; weight loss recommended. 10. Presumptive SLOANE/OHHS; will obtain nocturnal pulse oximetry and recommend formal outpatient sleep study for CPAP qualification. 11. DVT prophylaxis with Lovenox. Discussed with the patient's and she agreed for doing MRI brain. Discharge is postponed for tomorrow. Further recommendation as per MRI. Code Visit Inpatient E&M: 27141 Subs Hosp L3
--- NOTE | 2018-01-15 19:59 | NURSING ---
Leeanna, MRI called and stated that she will not be able to do MRI tonight, as she had late inpatient and now an ER MRI. Leeanna will do tomorrow. Notified Leeanna that she will need ativan prior to going for MRI.
[2018-01-15 20:40] VITALS: BP 126/85; PULSE 79; RESP 16; TEMP 37.1; O2SAT 97
[2018-01-15] MEDS: Atorvastatin Calcium 10 MG Tablet PO (21:15)
[2018-01-15] MEDS: Menthol/Lanolin/Calamine/Znox 113 GM Tube 1 APPLIC TOPICAL (21:39)
[2018-01-15] MEDS: Nystatin Powder 15gm Bottle 1 APPLIC TOPICAL (21:40)
[2018-01-16 00:26] LABS: Bedside Glucose 420 mg/dL (70-110)
[2018-01-16 02:40] VITALS: BP 111/74; PULSE 68; RESP 18; TEMP 36.7; O2SAT 97
[2018-01-16] MEDS: Nystatin Powder 15gm Bottle 1 APPLIC TOPICAL ×2 (07:07→10:17)
[2018-01-16] MEDS: Dicyclomine 10 MG Capsule 20 MG PO ×2 (07:55→13:53)
[2018-01-16] MEDS: AcetaZOLAMIDE 250 MG Tablet 500 MG PO ×2 (08:00→13:54)
[2018-01-16] MEDS: metFORMIN HCl 1,000 MG Tablet 1000 MG PO (08:01)
[2018-01-16] MEDS: Methylphenidate HCl 5 MG Tablet 10 MG PO (08:04)
[2018-01-16 08:05] LABS: Bedside Glucose 271 mg/dL (70-110)
[2018-01-16 08:58] VITALS: BP 122/74; PULSE 99; RESP 18; TEMP 36.4; O2SAT 100
--- NOTE | 2018-01-16 09:34 | CASEMGMT ---
Social Work Assessment Referral Date: 01/16 Date of Assessment: 01/16 Reason for Consult: Mental Health Informant: OSCAR MOORE met with patient to complete assessment and discuss mental health. Pt was alert and orientated x4. SW introduced self and role at [facility]. Pt states that she lives with her , their daughter, and brother in law. Pt states that her daughter is 9 months old and that her name is Meena. Pt states that she stays at home to take care of her daughter. Pt states that she has supportive friends and family. Pt states that her plan is to go home at discharge and resume services through [facility]. Pt denied additional needs at this time. Substance Abuse Hx: Pt states that she used to smoke cigarettes but states that she quit about four months ago. Pt denied any other substances. Mental Health Hx: Pt states that she has been diagnosed with depression, anxiety, emotional adjustment disorder, and PTSD. She states that she is currently taking Zoloft and Klonopin. Pt states that she is receiving counseling services at [facility] and receives counseling once a month. Pt states that before going to [facility] she was receiving counseling services at [facility] after she found out that she has cancer. Pt states that she will continue to utilize services at [facility] at discharge. SW completed PHQ-9 questionnare with pt. Pt scored a 12 out of a possible 27. Pt states that she has been managing her symptoms better stating now that I have a daughter I am able to play with her and it gives me a sense of purpose. Pt denied any suicidal thoughts/plans/ideations. Plan: Discharge Home and resume counseling services at [facility]. Essence Trejo PIPE ORGAN MECHANIC APPRENTICE, DIGITAL MEDIA MANAGER
[2018-01-16 10:05] VITALS: PULSE 88
[2018-01-16] MEDS: Amitriptyline 25 MG Tablet 50 MG PO (10:08)
[2018-01-16] MEDS: Lisinopril 5 MG Tablet PO (10:08)
[2018-01-16] MEDS: guaiFENesin 1,200 MG Tablet 1200 MG PO (10:08)
[2018-01-16] MEDS: Pantoprazole Sodium 20 MG Tablet PO (10:08)
[2018-01-16] MEDS: Topiramate 25 MG Tablet 50 MG PO (10:08)
[2018-01-16] MEDS: Sertraline 100 MG Tablet 200 MG PO (10:08)
[2018-01-16] MEDS: Enoxaparin 40 MG/0.4 ML Syringe SC (10:10)
[2018-01-16] MEDS: Menthol/Lanolin/Calamine/Znox 113 GM Tube 1 APPLIC TOPICAL (10:11)
--- NOTE | 2018-01-16 11:48 | NURSING ---
This nurse into room to pre-med pt for MRI with IV ativan. Pt very drowsy, unable to keep eyes open when conversing with this nurse. Will hold ativan at this time. Carmen JORDAN aware.
--- NOTE | 2018-01-16 13:42 | PCM.DC ---
- Discharge Diagnoses Current Active Problems: Current Active and Chronic Problems Meningitis (Acute) Headache (Acute) Neck pain (Acute) Endometrial cancer (Chronic) DM2 (diabetes mellitus, type 2) (Chronic) Morbid obesity (Chronic) Hypertension (Chronic) Hyperlipidemia (Chronic) Depression (Chronic) Acute maxillary sinusitis (Acute) You will use the following diet at home:: Calorie/Carbohydrate Controlled (specify 1200, 1400, etc) - 1800 ADA diet Discharge Activity: May Not Drive Allergies/Adverse Reactions: Allergies ibuprofen Allergy (Verified 01/10/18 16:48) Laryngospasms ketorolac [From Toradol] Allergy (Verified 01/10/18 16:48) Hives morphine Allergy (Verified 01/10/18 16:48) Hives naproxen Allergy (Verified 01/10/18 16:48) Laryngospasms Medications to take at Discharge Clonazepam [Klonopin] 0.5 mg PO TID 10/22/16 Sertraline HCl [Zoloft] 200 mg PO DAILY 10/22/16 Methylphenidate HCl [Ritalin] 10 mg PO DAILY 12/29/16 Omeprazole [Prilosec] 10 mg PO DAILY 02/21/17 Ondansetron [Zofran Odt] 4 mg PO Q8H PRN PRN #10 tablet 07/19/17 Atorvastatin Calcium [Lipitor] 10 mg PO QHS 01/10/18 Lisinopril [Prinivil] 5 mg PO DAILY 01/10/18 Dicyclomine HCl [Bentyl] 20 mg PO ACHS 01/11/18 Metformin HCl [Glucophage] 1,000 mg PO BIDCM 01/11/18 Acetaminophen/Butalbital/Caffe [Fioricet] 1 tablet PO Q4H PRN PRN tablet 01/15/18 Amoxicillin/Potassium Clav [Augmentin 875-125 Tablet] 1 ea PO BID #14 tab 01/15/18 Dexamethasone [Decadron] See Protocol PO BIDCM #19 tab 01/15/18 Guaifenesin [Mucinex] 1,200 mg PO BID 7 Days tablet 01/15/18 Methylphenidate HCl [Ritalin] 20 mg PO 1500 01/15/18 AcetaAZOLAMIDE [Diamox] 500 mg PO TIDCM #90 tab 01/16/18 Insulin Human 70/30 [Novolog Mix 70-30 Flexpen Syrn] 30 units SC BIDAC flexpen 01/16/18 Topiramate [Topamax] 50 mg PO BID #60 tab 01/16/18 The following prescriptions were given: Amoxicillin/Potassium Clav [Augmentin 875-125 Tablet] 1 ea PO BID #14 tab Dexamethasone [Decadron] See Protocol PO BIDCM #19 tab Topiramate [Topamax] 50 mg PO BID #60 tab AcetaAZOLAMIDE [Diamox] 500 mg PO TIDCM #90 tab Primary Care Physician: Alejandra Cruz PA [Primary Care Provider] - Please follow up with your Primary Care Physician in: IN 2 Weeks Please Follow Up With: Sunny Simpson MD When: in 3-4 weeks for headache, possible psedotumor cerebri Please Follow Up With: Augustine Alonzo MD When: in 2-3 weeks for sinusitis Please Follow Up With: Jossy Cota, FUR MIXER OPERATOR-C When: for uncontrolled DM-2
[2018-01-16 14:06] LABS: Bedside Glucose 354 mg/dL (70-110)
[2018-01-16 15:16] VITALS: BP 100/80; PULSE 95; RESP 18; TEMP 36.1; O2SAT 94
--- NOTE | 2018-01-16 16:03 | MRI_ITS ---
STUDY: MRI BRAIN WITHOUT CONTRAST REASON FOR EXAM: Female, 27 years old. Headache x6 days. Pseudotumor cerebri. TECHNIQUE: Standardized multiplanar fat and water weighted pulse sequences were obtained. COMPARISON: CT brain without contrast 01/11/2018. FINDINGS: No restricted diffusion to suspect acute or subacute ischemic infarct. Normal size of the ventricles and extra-axial spaces for the patient's age. Normal white matter tracts of the supratentorial brain. Normal bilateral basal ganglia. Normal thalami. There is no extra-axial fluid accumulation. Normal flow voids within the major intracranial circulation suggesting patency by spin echo criteria. Normal sella turcica, pituitary gland, infundibular stalk, optic chiasm and hypothalamus. Normal tectal plate and pineal gland. Normal midbrain, falguni and medulla. Normal cerebellum. Normal basal cisterns. Normal bilateral temporal bones. Normal bilateral internal auditory canals. No demonstrated orbital abnormality, within the constraints of a routine brain study. No suspicious flattening of the optic nerve heads and no suspicious abnormal dilatation of the optic nerve sheaths. Minimal mucosal thickening in the maxillary sinuses. Normal calvarium and skull base. Normal visualized soft tissue structures. Normal visualized upper cervical spine. MRI/Brain without Contrast IMPRESSION: Normal unenhanced MRI of the brain. Electronically Signed: Vladimir Wooten MD at 13:27 EDT , Service support ,
== END 2018-01-16 15:50 | disposition home or self-care (01) ==
LOC: ED 19:11 → MS3 23:13
PROVIDERS: Internal Medicine; Emergency Provider Emergency Medicine; Family Provider Physician Assistant; PCP Physician Assistant; Visit Provider Internal Medicine
DX: R51 Headache (principal); J02.0 Streptococcal pharyngitis; J01.00 Acute maxillary sinusitis, unspecified; E11.65 Type 2 diabetes mellitus with hyperglycemia; E66.01 Morbid (severe) obesity due to excess calories; I10 Essential (primary) hypertension; M54.2 Cervicalgia; E78.5 Hyperlipidemia, unspecified; F32.9 Major depressive disorder, single episode, unspecified; R06.02 Shortness of breath; R33.9 Retention of urine, unspecified; L03.116 Cellulitis of left lower limb; L03.115 Cellulitis of right lower limb; F41.9 Anxiety disorder, unspecified; R30.0 Dysuria; Z68.43 Body mass index [BMI] 50.0-59.9, adult; Z71.3 Dietary counseling and surveillance; Z92.3 Personal history of irradiation; Z85.44 Personal history of malignant neoplasm of other female genital organs; Z79.899 Other long term (current) drug therapy; Z79.84 Long term (current) use of oral hypoglycemic drugs; Z87.891 Personal history of nicotine dependence; F98.8 Other specified behavioral and emotional disorders with onset usually occurring in childhood and adolescence
CPT/HCPCS: 36415; 62270; 70450; 70551; 71045; 72125; 80048; 81001; 82945; 82962; 83036; 83605; 84157; 85025; 87040; 87070; 87077; 87205; 87255; 87498; 87631; 87804; 87880; 88108; 88313; 89050; 89051; 96365; 96366; 96367; 96368; 96372; 96375; 96376; 97802; 99218; 99285; J7030; J7040; A4216; G0378; J0295; J2405; J3030

== ENCOUNTER 2018-03-13 10:14 | Emergency (ER) | payer MEDICAID, SELFPAY ==
[2018-03-13 10:15] VITALS: BP 143/113; PULSE 91; RESP 18; TEMP 36.6; O2SAT 99; BMI 61.4
--- NOTE | 2018-03-13 10:48 | CT_ITS ---
STUDY: CT ABDOMEN AND PELVIS WITH CONTRAST REASON FOR EXAM: Female, 27 years old. Umbilical pain. 2 day history of rectal bleeding. RADIATION DOSAGE (If Supplied By Facility): CTDIvol = ( 24.18 ) mGy, DLP = ( 1347.10 ) mGycm TECHNIQUE: Transaxial images were obtained from the dome of the diaphragm to the symphysis pubis without oral contrast. 100 ml of Isovue 300 contrast was administered. Sagittal and coronal images were reconstructed. Individualized dose optimization techniques were used for this CT. COMPARISON: Comparison is made with prior study dated December 21, 2017. FINDINGS: The visualized lung bases are unremarkable. The visualized portions of the heart are within normal limits. There is decreased attenuation of the liver consistent with steatosis. There are surgical clips in the gallbladder fossa consistent with a prior cholecystectomy. Normal spleen. Normal pancreas. Normal bilateral adrenal glands. Normal right kidney. Normal left kidney. Normal visualized stomach. Normal small intestine. There are multiple colonic diverticula consistent with diverticulosis. There is non-visualization of the appendix. Normal abdominal aorta. Normal inferior vena cava. Normal retroperitoneum. Normal urinary bladder. There is absence of the uterus consistent with a prior hysterectomy. Normal abdominal wall. Normal osseous structures. Stable loss of height of the T11 vertebral body. CT/Abdomen/Pelvis W IV Cont ONLY IMPRESSION: Fatty infiltration of the liver. Sigmoid diverticulosis with no radiological evidence of diverticulitis. Electronically Signed: Fab Stovre MD at 12:46 EDT Tel [phone], Service support ,
[2018-03-13] MEDS: Ondansetron 4 MG/2 ML Vial IV (11:15)
[2018-03-13 11:36] LABS: Absolute Lymphocyte Count 1.71 X10^3/ul (0.83-4.51); Absolute Neutrophil Count 5.7 X10^3/uL (2.0-7.7); Basophil# 0.02 X10^3/uL; Basophil% 0.3 % (0-1); Eosinophil# 0.11 X10^3/uL; Eosinophils% 1.4 % (0-5); Hematocrit 40.6 % (37-47); Hemoglobin 13.1 g/dl (12.0-15.0); Lymphocyte # 1.71 X10^3/ul (4.0); Lymphocyte % 21.6 % (19-41); Mean Corp Hgb Conc 32.3 g/gl (32-36); Mean Corpuscular Hgb 30.2 pg (27.0-32.0); Mean Corpuscular Volume 93.5 fL (81-99); Mean Platelet Vol. 10.3 fl (6.2-12.0); Monocyte# 0.36 X10^3/uL; Monocyte% 4.5 % (0-10); Neutrophil % 71.8 % (47-70); POSITIVE COUNT NO; POSITIVE DIFFERENTIAL NO; POSITIVE MORPHOLOGY NO; Platelet Count 195 K/mm3 (150-450); RBC Distribution Width SD 44.6 fl (35.1-43.9); Red Blood Count 4.34 M/mm3 (4.2-5.4); White Blood Count 7.9 K/mm3 (4.4-11.0)
[2018-03-13 11:48] LABS: ALB/GLOB Ratio 0.9 RATIO (0.9-2.4); AST(SGOT) 34 U/L (15-37); Alanine Aminotransfer ALT/SGPT 54 U/L (13-56); Albumin, Serum 3.5 g/dL (3.2-5.0); Alkaline Phosphatase 105 U/L (45-117); Anion Gap 6 (5-15); BUN 10 mg/dL (7-18); BUN/Creat Ratio 16.1 RATIO (10-20); Calcium,Total 8.7 mg/dL (8.5-10.1); Chloride 107 mmol/L (98-107); Creatinine, Serum 0.62 mg/dL (0.55-1.02); EST Glomerular Filtration Rate 122 mL/min (>60); Est Glom Filt Rate - Afr Amer 147 mL/min (>60); Estimated Creatinine Clearance 122.64 ml/min; Globulin 3.7 g/dL (2.2-4.2); Glucose 175 mg/dL (74-106); Lipase 68 U/L (73-393); Potassium 3.9 mmol/L (3.5-5.1); Protein, Total 7.2 g/dL (6.4-8.2); Sodium Level 140 mmol/L (136-145)
[2018-03-13 11:49] LABS: Pregnancy, Serum, hCG Quali. NEGATIVE Negative (0-9 Nonpreg)
[2018-03-13 12:01] LABS: Lactic Acid 2.3 mmol/L (0.4-2.0)
[2018-03-13] MEDS: HYDROcodone Bitartrate/Apap 5/325 Tablet PO (12:29)
[2018-03-13 12:30] VITALS: BP 128/74; PULSE 89; RESP 18; O2SAT 95
[2018-03-13 14:13] LABS: Bacteria 0 SEEN /hpf (None Seen); Mucous, Urine 0 SEEN /hpf (<or=2+); Red Blood Cells-Urine 0 SEEN /hpf (0-5); White Blood Cells 0 SEEN /hpf (0-5)
[2018-03-13 14:19] LABS: Color, Urine Yellow (Yellow); Glucose, Dipstick Normal (Normal); Ketone-Dipstick Negative (Negative); Leukocyte Esterase-Dipstick Negative /ul (Negative); Nitrite-Dipstick Negative (Negative); Occult Blood-Urine Negative /ul (Negative); Protein-Dipstick 15 mg/dl (Negative); Urine Bilirubin Dipstick Negative (Negative); Urine Clarity Sl. Cloudy (Clear); Urine Urobilinogen Normal (Normal)
[2018-03-13 14:24] LABS: Squamous Epithelial Cells - UA 0-5 SEEN /hpf (5-10)
[2018-03-13] MEDS: Dicyclomine 20 MG/2 ML Vial IM (14:50)
[2018-03-13] MEDS: proMETHazine 25 MG/ML Syringe 12.5 MG IV (14:51)
--- NOTE | 2018-03-13 15:10 | ED.VISSUMM ---
- ER Visit Summary Date of Service: 03/13/18 Chief Complaint: Rectal bleeding and abdominal pain History of Present Illness: The patient is a 27 F who states that she has chronic diarrhea. No she states for the past 2 days she has had bright red blood with her stools. She states that she is also had some nausea and vomiting. She describes a sharp pain in her abdomen just above her umbilicus. She has had prior cholecystectomy. She is not on any blood thinners. No fevers. Physical Examination: Afebrile vital signs are stable Gen: Well-nourished well-developed morbidly obese Head: Normocephalic atraumatic Eyes: Perrl EOMI ENT: TMs clear no rhinorrhea moist mucous membranes Neck: Supple no lymphadenopathy no JVD nontender CVS: Regular rate rhythm no murmurs normal S1-S2 Respiratory: No distress clear to auscultation bilaterally chest nontender Abdomen: Soft tender to palpation in the epigastric periumbilical region. Nondistended normal bowel sounds no masses Back: Nontender Extremity: Nontender no edema Skin: Normal color no rash Neuro: alert orientated ?3 CN II-XII intact normal strength sensation reflexes gait cerebellar Test Results: CBC is normal. Chemistries normal except for glucose of 175. Lactic acid slightly elevated 2.3 however she is on metformin. Urinalysis negative. CT the abdomen pelvis shows diverticulosis. Emergency Department Course and Treatment: Patient received Zofran and [place]. Bentyl and Phenergan were ordered later in her ED course when she reported vomiting.. Patient states she would let rather lay in bed at home than here at the hospital. This point the patient is otherwise stable from a lower GI bleed standpoint. Probable diverticular bleed versus hemorrhoidal. The patient will follow up in 1-2 days if not improved. Impression: 1. Acute abdominal pain 2. Stable lower GI bleed This note was generated with [employer] dictation software. It may contain incorrect words, spelling, and punctuation that were not noted in review of the chart prior to signing ED Disposition - Plan for ED Patient: Disposition: Home or Assisted Living Chief Complaint: GI Bleed Instructions: ED Hematochezia Stable Referrals: Alejandra Cruz PA [Primary Care Provider] - 1-2 Days if not improving
--- NOTE | 2018-03-13 15:16 | ED.DCSUM_ITS ---
- ER Visit Summary Date of Service: 03/13/18 Chief Complaint: Rectal bleeding and abdominal pain History of Present Illness: The patient is a 27 F who states that she has chronic diarrhea. No she states for the past 2 days she has had bright red blood with her stools. She states that she is also had some nausea and vomiting. She describes a sharp pain in her abdomen just above her umbilicus. She has had prior cholecystectomy. She is not on any blood thinners. No fevers. Physical Examination: Afebrile vital signs are stable Gen: Well-nourished well-developed morbidly obese Head: Normocephalic atraumatic Eyes: Perrl EOMI ENT: TMs clear no rhinorrhea moist mucous membranes Neck: Supple no lymphadenopathy no JVD nontender CVS: Regular rate rhythm no murmurs normal S1-S2 Respiratory: No distress clear to auscultation bilaterally chest nontender Abdomen: Soft tender to palpation in the epigastric periumbilical region. Nondistended normal bowel sounds no masses Back: Nontender Extremity: Nontender no edema Skin: Normal color no rash Neuro: alert orientated ?3 CN II-XII intact normal strength sensation reflexes gait cerebellar Test Results: CBC is normal. Chemistries normal except for glucose of 175. Lactic acid slightly elevated 2.3 however she is on metformin. Urinalysis negative. CT the abdomen pelvis shows diverticulosis. Emergency Department Course and Treatment: Patient received Zofran and [place]. Bentyl and Phenergan were ordered later in her ED course when she reported vomiting.. Patient states she would let rather lay in bed at home than here at the hospital. This point the patient is otherwise stable from a lower GI bleed standpoint. Probable diverticular bleed versus hemorrhoidal. The patient will follow up in 1-2 days if not improved. Impression: 1. Acute abdominal pain 2. Stable lower GI bleed This note was generated with [employer] dictation software. It may contain incorrect words, spelling, and punctuation that were not noted in review of the chart prior to signing ED Disposition - Plan for ED Patient: Disposition: Home or Assisted Living Chief Complaint: GI Bleed Instructions: ED Hematochezia Stable Referrals: Alejandra Cruz PA [Primary Care Provider] - 1-2 Days if not improving
[2018-03-13 15:20] VITALS: BP 121/70; PULSE 94; RESP 18; O2SAT 97
[2018-03-13 15:29] LABS: Reflex Lactate? Y
== END 2018-03-13 15:22 | disposition home or self-care (01) ==
PROVIDERS: Emergency Provider Emergency Medicine; Family Provider Physician Assistant; PCP Physician Assistant
DX: R10.13 Epigastric pain (principal); R10.33 Periumbilical pain; K92.1 Melena; K52.9 Noninfective gastroenteritis and colitis, unspecified; K57.30 Diverticulosis of large intestine without perforation or abscess without bleeding; E66.01 Morbid (severe) obesity due to excess calories; K21.9 Gastro-esophageal reflux disease without esophagitis; E11.9 Type 2 diabetes mellitus without complications; I10 Essential (primary) hypertension; E78.00 Pure hypercholesterolemia, unspecified; G43.909 Migraine, unspecified, not intractable, without status migrainosus; Z87.891 Personal history of nicotine dependence; Z90.49 Acquired absence of other specified parts of digestive tract; Z79.84 Long term (current) use of oral hypoglycemic drugs; Z79.899 Other long term (current) drug therapy
CPT/HCPCS: 74177; 80053; 81001; 83605; 83690; 84703; 85025; 96372; 96374; 96375; 99284; Q9967; A4216; J2405

== ENCOUNTER 2018-05-06 18:04 | Emergency (ER) | payer MEDICAID, SELFPAY ==
[2018-05-06 18:05] VITALS: BP 165/96; PULSE 93; RESP 16; TEMP 35.8; O2SAT 99; BMI 57.4
--- NOTE | 2018-05-06 18:58 | ED.VISSUMM ---
- ER Visit Summary Date of Service: 05/06/18 Chief Complaint: Infected left long finger at the nail and both large toes. Also elevated blood sugars. History of Present Illness: The patient is a 27 F history of known insulin-dependent diabetes and pseudotumor cerebri. Patient states for the last several days she has had what she thinks is an infection along the nail of her left long finger and both great toes. She is also had trouble urinating. She states she has to force herself to urinate. It is a little uncomfortable. She denies any gross hematuria. Also her blood sugars been running greater than 600. She has had some mild nausea, vomiting and diarrhea. No fever. Physical Examination: Well-appearing young female. Vital signs are stable afebrile. She does not look septic or toxic. She is morbidly obese. H EENT exam unremarkable. Neck nontender lungs clear to auscultation bilaterally. Heart regular rhythm rate in 90s no murmur. Abdomen morbidly obese soft nontender nondistended. In her groin creases she has obvious tinea skin yeast infection. Moving all 4 extremities. Neurovascularly intact. She has a left long finger and both great toes ingrown toenails with paronychial infections. She cuts her nails way too short to grow out a cut in the skin causing infection. There is no significant accumulation of pus. No lymphangitic streaking. Neurologically she is awake alert without focal motor deficits. Test Results: White count is normal hemoglobin 14 no bands. Electrolytes normal gap of 10 creatinine 0.6 glucose elevated to 92. Urinalysis no signs of infection serum ketones negative. Emergency Department Course and Treatment: Treated with IV fluids. Workup for possible DKA. Treatment Plan: Repeat exam patient is doing well. I did a digital block of her left long finger and used an 11 blade scalpel to go along the nail into the paronychial skin there is a small amount of blood but no madeline pus. I then placed a gauze underneath that incision to allow to continue to drain. Left great toe also had a digital block performed. I was able to excise the lateral third of the right great toenail. There was no pus. This will be dressed. Disposition: Discharge Impression: Left long finger and bilateral great toes ingrown nails with soft tissue infection Paronychial infection left long finger with incision and drainage by ER Left great toenail partial resection by ER physician Hyperglycemia History of insulin-dependent diabetes This note was generated with [employer] dictation software. It may contain incorrect words, spelling, and punctuation that were not noted in review of the chart prior to signing ED Disposition - Plan for ED Patient: Disposition: Home or Assisted Living Chief Complaint: Abscess Instructions: ED Ingrown Toenail Excised Prescriptions: Cephalexin [Keflex] 500 mg PO Q6 #40 cap Referrals: Alejandra Cruz PA [Primary Care Provider] - Additional Instructions: Warm soaks to left long finger and left great toe. Stop biting her nails. You also need to cut her nails much longer when they grow out they do not grow in getting infected. Keflex 1 pill 4 times a day for the infections till gone.
[2018-05-06] MEDS: 0.9% Normal Saline 1,000 ML 1000 ML IV (19:37)
[2018-05-06 19:38] LABS: Mucous, Urine 0 SEEN /hpf (<or=2+)
[2018-05-06 19:40] LABS: Absolute Lymphocyte Count 1.87 X10^3/ul (0.83-4.51); Absolute Neutrophil Count 6.1 X10^3/uL (2.0-7.7); Basophil# 0.01 X10^3/uL; Basophil% 0.1 % (0-1); Eosinophil# 0.09 X10^3/uL; Hematocrit 43.6 % (37-47); Hemoglobin 14.1 g/dl (12.0-15.0); Lymphocyte # 1.87 X10^3/ul (4.0); Lymphocyte % 21.8 % (19-41); Mean Corp Hgb Conc 32.3 g/gl (32-36); Mean Corpuscular Hgb 30.2 pg (27.0-32.0); Mean Corpuscular Volume 93.4 fL (81-99); Mean Platelet Vol. 11.1 fl (6.2-12.0); Monocyte# 0.45 X10^3/uL; Monocyte% 5.2 % (0-10); Neutrophil # 6.14 X10^3/uL (2.7-7.7); Neutrophil % 71.7 % (47-70); Platelet Count 198 K/mm3 (150-450); RBC Distribution Width CV 12.5 % (11.6-14.6); RBC Distribution Width SD 42.3 fl (35.1-43.9); Red Blood Count 4.67 M/mm3 (4.2-5.4); White Blood Count 8.6 K/mm3 (4.4-11.0)
[2018-05-06 19:40] LABS: Color, Urine Yellow (Yellow); Glucose, Dipstick 1000 mg/dl (Normal); Ketone-Dipstick 15 mg/dl (Negative); Leukocyte Esterase-Dipstick 500 /ul (Negative); Nitrite-Dipstick Negative (Negative); Occult Blood-Urine 250 /ul (Negative); Protein-Dipstick 30 mg/dl (Negative); Urine Bilirubin Dipstick Negative (Negative); Urine Clarity Sl. Cloudy (Clear); Urine Urobilinogen Normal (Normal)
[2018-05-06 19:44] LABS: POSITIVE COUNT NO; POSITIVE DIFFERENTIAL NO; POSITIVE MORPHOLOGY NO
[2018-05-06 19:51] LABS: Bacteria RARE /hpf (None Seen); Red Blood Cells-Urine 5-10 SEEN /hpf (0-5); Squamous Epithelial Cells - UA 0-5 SEEN /hpf (5-10); White Blood Cells 0-5 SEEN /hpf (0-5)
[2018-05-06 19:52] LABS: Yeast-Urine RARE /hpf (None Seen)
[2018-05-06 19:53] LABS: Anion Gap 10 (5-15); BUN 9 mg/dL (7-18); BUN/Creat Ratio 13.4 RATIO (10-20); Calcium,Total 9.2 mg/dL (8.5-10.1); Chloride 101 mmol/L (98-107); Creatinine, Serum 0.67 mg/dL (0.55-1.02); EST Glomerular Filtration Rate 111 mL/min (>60); Est Glom Filt Rate - Afr Amer 134 mL/min (>60); Estimated Creatinine Clearance 113.49 ml/min; Glucose 292 mg/dL (74-106); Potassium 4.1 mmol/L (3.5-5.1); Sodium Level 139 mmol/L (136-145)
[2018-05-06] MEDS: Lidocaine/Epi/Tetracaine 50 ML 1 APPLIC TOPICAL (22:35)
[2018-05-06 23:12] VITALS: BP 132/75; PULSE 82; RESP 16; O2SAT 99
--- NOTE | 2018-05-06 23:27 | ED.DEP ---
ED Disposition - Plan for ED Patient: Disposition: Home or Assisted Living Chief Complaint: Abscess Instructions: ED Ingrown Toenail Excised Prescriptions: Cephalexin [Keflex] 500 mg PO Q6 #40 cap Referrals: Alejandra Cruz PA [Primary Care Provider] - Additional Instructions: Warm soaks to left long finger and left great toe. Stop biting her nails. You also need to cut her nails much longer when they grow out they do not grow in getting infected. Keflex 1 pill 4 times a day for the infections till gone.
--- NOTE | 2018-05-06 23:45 | ED.DEP ---
ED Disposition - Plan for ED Patient: Chief Complaint: Abscess Instructions: ED Ingrown Toenail Excised Prescriptions: Cephalexin [Keflex] 500 mg PO Q6 #40 cap Referrals: Alejandra Cruz PA [Primary Care Provider] - Additional Instructions: Warm soaks to left long finger and left great toe. Stop biting her nails. You also need to cut her nails much longer when they grow out they do not grow in getting infected. Keflex 1 pill 4 times a day for the infections till gone.
[2018-05-06] MEDS: Cephalexin 250 MG Capsule 500 MG PO (23:59)
[2018-05-06] MEDS: Acetaminophen 500 MG Tablet 1000 MG PO (23:59)
[2018-05-07 00:03] VITALS: PULSE 84; RESP 14; O2SAT 98
== END 2018-05-07 00:03 | disposition home or self-care (01) ==
PROVIDERS: Emergency Provider Emergency Medicine; Family Provider Physician Assistant; PCP Physician Assistant
DX: L03.012 Cellulitis of left finger (principal); L03.032 Cellulitis of left toe; L60.0 Ingrowing nail; E11.65 Type 2 diabetes mellitus with hyperglycemia; E66.01 Morbid (severe) obesity due to excess calories; R39.198 Other difficulties with micturition; R19.7 Diarrhea, unspecified; B37.2 Candidiasis of skin and nail; G93.2 Benign intracranial hypertension; Z79.84 Long term (current) use of oral hypoglycemic drugs; Z79.899 Other long term (current) drug therapy
CPT/HCPCS: 10060; 11750; 80048; 81001; 82009; 85025; 96360; 96361; 99285; J7030; A4216

== ENCOUNTER 2018-07-09 12:52 | Emergency (ER) | payer MEDICAID, SELFPAY ==
[2018-07-09 12:52] VITALS: BP 155/119; PULSE 94; RESP 18; TEMP 37; O2SAT 100; BMI 55.9
--- NOTE | 2018-07-09 13:08 | RAD_ITS ---
STUDY: X-RAY CHEST REASON FOR EXAM: Female, 27 years old. Headaches nausea and cough. Hyperglycemia. TECHNIQUE: PA and lateral views of the chest. COMPARISON: Comparison is made with prior study dated January 10, 2018. FINDINGS: EKG electrode are seen. Mild elevation of the right hemidiaphragm. The lungs are clear. There is no demonstrated pleural abnormality. Normal size heart. Normal mediastinum and dorian. Normal visualized pulmonary arteries. Normal visualized aortic arch and descending thoracic aorta. Normal visualized thoracic spine. Normal visualized ribs, clavicles, and shoulders. There is no demonstrated abnormality of the visualized soft tissue structures of the upper abdomen. RAD/Chest PA and Lateral IMPRESSION: Normal x-ray examination of the chest. Electronically Signed: Fab Stover MD at 14:04 EDT Tel [phone], Service support ,
[2018-07-09] MEDS: proMETHazine 25 MG/ML Syringe 12.5 MG IV (13:37)
[2018-07-09] MEDS: 0.9% Normal Saline 1,000 ML 1000 ML IV ×2 (13:37→15:07)
[2018-07-09 13:43] LABS: Absolute Lymphocyte Count 2.17 X10^3/ul (0.83-4.51); Absolute Neutrophil Count 5.5 X10^3/uL (2.0-7.7); Basophil# 0.03 X10^3/uL; Basophil% 0.4 % (0-1); Eosinophils% 1.2 % (0-5); Hematocrit 41.1 % (37-47); Lymphocyte # 2.17 X10^3/ul (4.0); Lymphocyte % 25.8 % (19-41); Mean Corp Hgb Conc 34.1 g/gl (32-36); Mean Corpuscular Hgb 29.8 pg (27.0-32.0); Mean Corpuscular Volume 87.4 fL (81-99); Mean Platelet Vol. 10.6 fl (6.2-12.0); Monocyte% 7.1 % (0-10); Neutrophil # 5.46 X10^3/uL (2.7-7.7); Neutrophil % 64.8 % (47-70); Platelet Count 215 K/mm3 (150-450); RBC Distribution Width CV 12.4 % (11.6-14.6); RBC Distribution Width SD 39.2 fl (35.1-43.9); White Blood Count 8.4 K/mm3 (4.4-11.0)
[2018-07-09 13:44] LABS: POSITIVE COUNT NO; POSITIVE DIFFERENTIAL NO; POSITIVE MORPHOLOGY NO
[2018-07-09 13:46] LABS: Bacteria 0 SEEN /hpf (None Seen); Mucous, Urine 0 SEEN /hpf (<or=2+)
--- NOTE | 2018-07-09 13:52 | ED.DCSUM_ITS ---
- ER Visit Summary Date of Service: 07/09/18 Chief Complaint: High blood sugar History of Present Illness: The patient is a 27 F presents to the emergency department with elevated blood sugar. Patient has a history of insulin- dependent diabetes. She also has a history of chronic pain. She went to Dr. Gloria today to have injections of her knees. They did check her blood sugar was greater than 600. She states she took 30 extra units of her sliding scale last night because she was still 600. She states it has not changed. She has had upper respiratory illness with cough for the past few days. She was placed on antibiotics, but has not been on any prednisone. She denies any fevers or chills. She does admit to headache and dizziness. She has also had some urinary frequency. She is not sure if she has ever been in DKA before. Physical Examination: Vital signs reviewed General: Well-nourished, well-developed Head: Normocephalic, atraumatic Eyes: Pupils equal and reactive, extraocular muscles intact Neck, supple, no lymphadenopathy Heart: Regular rate and rhythm Respiratory: No distress, clear bilaterally Abdomen: Soft, nontender, nondistended, no peritoneal signs Back: Nontender Extremities: Nontender, no edema, no cords Skin: Normal color no rash Neuro: Alert and oriented, no focal or lateralizing deficits Test Results: [] Emergency Department Course and Treatment: The patient presents to the emergency department with elevated blood sugar. IV was established. DKA workup was pursued. With her cough and upper respiratory illness, I did obtain a chest x- ray which showed no pneumonia. Her labs were unremarkable except for hyperglycemia. She has no serum ketones. There is no urine ketones. Her bicarb is normal. Patient was given 2 L of fluids and subcutaneous insulin. Her repeat blood sugar was improving. At this time, I do for the patient is safe for outpatient management. I did cruise counselor her that she needs to follow-up with her supervisor laboratory to discuss her insulin management. I do not suspect a dangerous process. I do feel the patient is safe for outpatient follow-up. Treatment Plan: [] Disposition: Discharge Impression: Hyperglycemia This note was generated with [employer] software. It may contain incorrect words, spelling, and punctuation that were not noted in review of the chart prior to signing ED Disposition - Plan for ED Patient: Chief Complaint: Hyperglycemia Instructions: ED Hyperglycemia Diabetic Referrals: Alejandra Cruz PA [Primary Care Provider] -
[2018-07-09 13:58] LABS: Color, Urine Straw (Yellow); Glucose, Dipstick 1000 mg/dl (Normal); Ketone-Dipstick Negative (Negative); Leukocyte Esterase-Dipstick Negative /ul (Negative); Nitrite-Dipstick Negative (Negative); Occult Blood-Urine Negative /ul (Negative); Protein-Dipstick Negative (Negative); Urine Bilirubin Dipstick Negative (Negative); Urine Clarity Clear (Clear); Urine Urobilinogen Normal (Normal)
[2018-07-09 13:59] LABS: Internal QC Validated? YES +Cl - CLEAR BKGD; Pregnancy, Urine Negative Negative
[2018-07-09 14:00] LABS: ALB/GLOB Ratio 0.9 RATIO (0.9-2.4); AST(SGOT) 12 U/L (15-37); Alanine Aminotransfer ALT/SGPT 26 U/L (13-56); Albumin, Serum 3.4 g/dL (3.2-5.0); Alkaline Phosphatase 155 U/L (45-117); Anion Gap 10 (5-15); BUN 11 mg/dL (7-18); Chloride 95 mmol/L (98-107); Creatinine, Serum 0.84 mg/dL (0.55-1.02); EST Glomerular Filtration Rate 86 mL/min (>60); Est Glom Filt Rate - Afr Amer 103 mL/min (>60); Estimated Creatinine Clearance 90.52 ml/min; Globulin 3.7 g/dL (2.2-4.2); Glucose 520 mg/dL (74-106); Potassium 3.8 mmol/L (3.5-5.1); Protein, Total 7.1 g/dL (6.4-8.2); Sodium Level 130 mmol/L (136-145)
[2018-07-09 14:07] LABS: White Blood Cells 0-5 SEEN /hpf (0-5)
[2018-07-09 14:08] LABS: Red Blood Cells-Urine 0-5 SEEN /hpf (0-5); Squamous Epithelial Cells - UA 0-5 SEEN /hpf (5-10)
[2018-07-09 15:06] VITALS: BP 127/84; PULSE 64; RESP 18; O2SAT 97
[2018-07-09] MEDS: Insulin Lispro 100 UNIT/ML INSULN.PEN 30 UNIT SC (15:14)
[2018-07-09] MEDS: Acetaminophen 500 MG Tablet 1000 MG PO (15:35)
[2018-07-09 16:06] LABS: Bedside Glucose 441 mg/dL (70-110)
[2018-07-09] MEDS: Insulin Lispro 100 UNIT/ML INSULN.PEN 10 UNIT SC (16:10)
[2018-07-09 17:01] LABS: Bedside Glucose 333 mg/dL (70-110)
[2018-07-09 17:04] VITALS: BP 129/88; PULSE 67; RESP 18; O2SAT 99
== END 2018-07-09 17:58 | disposition home or self-care (01) ==
PROVIDERS: Emergency Provider Emergency Medicine; Family Provider Physician Assistant; PCP Physician Assistant
DX: E11.65 Type 2 diabetes mellitus with hyperglycemia (principal); G89.29 Other chronic pain; E66.9 Obesity, unspecified; I10 Essential (primary) hypertension; E78.00 Pure hypercholesterolemia, unspecified; Z79.4 Long term (current) use of insulin; Z79.84 Long term (current) use of oral hypoglycemic drugs; Z79.899 Other long term (current) drug therapy; Z72.0 Tobacco use
CPT/HCPCS: 71046; 80053; 81001; 81025; 82009; 82962; 85025; 96361; 96372; 96374; 99285; J7030; A4216

== ENCOUNTER 2018-08-11 23:51 | Inpatient (IN) | payer MEDICAID, SELFPAY ==
[2018-08-11 23:53] VITALS: BP 137/80; PULSE 128; RESP 20; TEMP 36.2; O2SAT 98; BMI 52.0
[2018-08-12] VITALS (28 sets, daily range): BP systolic 99–142; BP diastolic 58–108; PULSE 87–141; RESP 9–25; TEMP 36.1–37.2; O2SAT 98–100; BMI 52.0
[2018-08-12 00:07] LABS: Bacteria 0 SEEN /hpf (None Seen); Mucous, Urine 0 SEEN /hpf (<or=2+); Red Blood Cells-Urine 0 SEEN /hpf (0-5)
[2018-08-12 00:09] LABS: Color, Urine Yellow (Yellow); Glucose, Dipstick 1000 mg/dl (Normal); Leukocyte Esterase-Dipstick 500 /ul (Negative); Nitrite-Dipstick Negative (Negative); Occult Blood-Urine 25 /ul (Negative); Protein-Dipstick 100 mg/dl (Negative); Specific Gravity, Urine 1.025 (1.002-1.030); Urine Bilirubin Dipstick Negative (Negative); Urine Clarity Clear (Clear); Urine Urobilinogen Normal (Normal)
--- NOTE | 2018-08-12 00:16 | ED.RN ---
LAB CALL CRITICAL VALUE. PT URINE KETONES 150. DR. RINALDI INFORMED.
[2018-08-12 00:17] LABS: Ketone-Dipstick 150 mg/dl (Negative); Squamous Epithelial Cells - UA 0-5 SEEN /hpf (5-10); White Blood Cells 0-5 SEEN /hpf (0-5)
--- NOTE | 2018-08-12 00:26 | CT_ITS ---
STUDY: CT ABDOMEN AND PELVIS WITH CONTRAST REASON FOR EXAM: Female, 28 years old. Right-sided abdominal pain, nausea, vomiting and diarrhea. History of uterine and ovarian cancer status post radiation therapy. History of kidney stones. RADIATION DOSAGE (If Supplied By Facility): CTDIvol = ( 17.08 ) mGy, DLP = ( 1379.28 ) mGycm TECHNIQUE: Transaxial images were obtained from the dome of the diaphragm to the symphysis pubis without oral contrast. 100ML ml of Isovue 300 contrast was administered. Sagittal and coronal images were reconstructed. # Of Images Including Paperwork: 475 Individualized dose optimization techniques were used for this CT. COMPARISON: March 13, 2018. FINDINGS: The visualized lung bases are unremarkable. The visualized portions of the heart are within normal limits. Normal liver. There are surgical clips in the gallbladder fossa consistent with a prior cholecystectomy. There are multiple benign calcified granulomata of the spleen. Normal pancreas. Normal bilateral adrenal glands. Normal right kidney. Normal left kidney. Normal visualized stomach. Normal small intestine. Minimal sigmoid diverticulosis. The appendix is well visualized coronal image 76 and appears normal. Normal abdominal aorta. Normal inferior vena cava. Normal retroperitoneum. No intra-abdominal free air. Normal urinary bladder. There is absence of the uterus consistent with a prior hysterectomy. No adnexal mass is seen. Postoperative changes of lower abdominal midline incision. Normal osseous structures. CT/Abdomen/Pelvis W IV Cont ONLY IMPRESSION: No acute findings in the abdomen or pelvis. No findings to account for patient's symptoms. No evidence of bowel obstruction. Normal appendix. Minimal sigmoid diverticulosis. Electronically Signed: Francesco Candelaria MD at 2:08 EDT , Service support ,
--- NOTE | 2018-08-12 00:28 | ED.VIS.GEN ---
History of Present Illness Chief Complaint: Abd Pain Informant: Patient Onset: Yesterday Context: Gradual Onset Timing: Continuous - was intermittent yesterday Quality: sharp Location: periumbilical Current Severity: Moderate Maximum Severity: Severe Worsened by: nothing Relieved by: nothing Associated Symptoms: n/v lots; 2 episodes loose diarrhea Narrative: Abdominal pain started yesterday, followed by vomiting, then a couple bouts of diarrhea today. Vomiting worse today, pain is constant and increasing in severity today. No fevers. No recent travel. No recent antibiotics. No known sick contacts. No suspicious foods ingested. She had a small amount of blood when she wiped, but had no blood mixed in with the loose stool. No rectal or perianal pain. No coffee-ground or bloody emesis. No recent melena. Has had multiple surgeries in the past, including a hysterectomy because of uterine cancer, and then she had ovarian surgery because of issues due to the radiation she received for her cancer. She has also had a cholecystectomy but not an appendectomy. Also a herniorrhaphy. None of these surgeries have been recent in the past 2 or 3 months. - Past Medical History (1) DM2 (diabetes mellitus, type 2) Status: Chronic (2) Depression Status: Chronic (3) Endometrial cancer Status: Resolved (4) Hyperlipidemia Status: Chronic (5) Hypertension Status: Chronic (6) Pseudotumor cerebri Status: Chronic Past Medical History - Allergies and Home Meds Allergies/Adverse Reactions: Allergies ibuprofen Allergy (Verified 08/11/18 23:55) Laryngospasms ketorolac [From Toradol] Allergy (Verified 08/11/18 23:55) Hives morphine Allergy (Verified 08/11/18 23:55) Hives naproxen Allergy (Verified 08/11/18 23:55) Laryngospasms Surgical History: cholecystectomy, herniorrhaphy, hysterectomy, - - hysteroscopy, ovarian moving Smoking Status: Former smoker Alcohol: None - Family History Maternal Family History: Reports: - - uterine cancer, thyroid diabetes Paternal Family History: Reports: - - not sure Review of Systems General: Reports: Malaise. Denies: Chills, Fever, Sweats Eyes: Denies: Visual changes - bilaterally, Diplopia ENT: Denies: Rhinorrhea, Sore throat Cardiovascular: Denies: Chest pain, Palpitations Respiratory: Denies: Dyspnea, Cough, Dyspnea on exertion Gastrointestinal: Reports: Abdominal pain, Nausea, Vomiting, Diarrhea, Hematochezia. Denies: Melena Genitourinary: Denies: Dysuria, Hematuria, Frequency Musculoskeletal: Denies: Back pain, Swelling, Extremity Pain Skin: Denies: Rash Neurological: Denies: Headache, Weakness, Numbness Hematologic: Denies: Easy bruising, Easy bleeding Allergy: Denies: Swelling of the mouth, Swelling of the tongue Physical Exam Vital Signs/Narrative: Vital Signs Temp Pulse Resp BP Pulse Ox 08/11/18 23:53 97.2 F L 128 H 20 H 137/80 H 98 Inital Vital Signs reviewed: Yes General: Well nourished, Well developed, Obese Head: Normocephalic, Atraumatic Eyes: Perrl, EOMI ENT: Moist mucous membranes, No rhinorrhea Neck: Supple, Nontender Cardiovascular: Regular rate, Regular rhythm, No murmurs Respiratory: No distress, CTA bilaterally, Chest nontender Abdomen: Soft, Nondistended, Normal bowel sounds, Tender - Throughout right side and epigastrium/pineda-umbilical area. Nontender throughout the left. No significant superpubic tenderness. Exam is limited due to obesity. Multiple well-healed surgical laparoscopic scars are noted., Guarding - Voluntary, throughout right side Back: Nontender, Normal Inspection. Negative for: CVA tenderness Extremities: Nontender, No edema Skin: Normal color, No rash Neurological: Alert, Oriented x3, Cranial nerves II-XII grossly intact, Normal Strength, Normal Sensation Psychological: Tearful Diagnostic/Tx/Re-eval Impressions Abdomen/Pelvis CT 08/12/18 00:26 IMPRESSION: No acute findings in the abdomen or pelvis. No findings to account for patient's symptoms. No evidence of bowel obstruction. Normal appendix. Minimal sigmoid diverticulosis. Electronically Signed: Francesco Candelaria MD at 2:08 EDT , Service support , 08/12/18 00:26 Abdomen/Pelvis W IV Cont ONLY [CT] Stat Laboratory Results 08/12/18 08/12/18 08/12/18 00:03 01:25 01:25 WBC 12.8 H RBC 5.30 Hgb 16.0 H Hct 47.2 H MCV 89.1 MCH 30.2 MCHC 33.9 RDW 13.1 RDW Differential 42.9 Plt Count 274 MPV 11.3 Immature Gran % (Auto) 2.300 H Neut % (Auto) 81.7 H Lymph % (Auto) 11.3 L [place] % (Auto) 4.0 Eos % (Auto) 0.2 Baso % (Auto) 0.5 Absolute Neuts (auto) 10.5 H Absolute Lymphs (auto) 1.45 Total Counted Not Reportable Diff Path Review May foll Specimen Type Sample Site VBG pH VBG pO2 VBG O2 Sat (Calc) VBG O2 Content VBG Base Excess POC Mix VBG pCO2 Pt Tmp O2 Delivery Device Blood Gas Notified Whom Blood Gas Notified Time Sodium 133 L Potassium 4.0 Chloride 103 Carbon Dioxide 10.0 L Anion Gap 20 H BUN 9 Creatinine 0.81 Estim Creat Clear Calc 93.05 Est GFR (MDRD) Af Amer 108 Est GFR (MDRD) Non-Af 89 BUN/Creatinine Ratio 11.1 Glucose 344 H Calcium 8.2 L Total Bilirubin 0.50 AST 12 L ALT 25 Alkaline Phosphatase 160 H Total Protein 7.8 Albumin 3.5 Globulin 4.3 H Albumin/Globulin Ratio 0.8 L Lipase 53 L Urine Color Yellow Urine Clarity Clear Urine pH 5.0 Ur Specific [place] 1.025 Urine Protein 100 H Urine Glucose (UA) 1000 H Urine Ketones 150 H Urine Occult Blood 25 H Urine Nitrite Negative Urine Bilirubin Negative Urine Urobilinogen Normal Ur Leukocyte Esterase 500 H Urine RBC 0 SEEN Urine WBC 0-5 SEEN Ur Squamous Epith Cells 0-5 SEEN Urine Bacteria 0 SEEN Urine Mucus 0 SEEN Acetone Level POC Glucose 08/12/18 08/12/18 08/12/18 01:27 04:11 05:57 WBC RBC Hgb Hct MCV MCH MCHC RDW RDW Differential Plt Count MPV Immature Gran % (Auto) Neut % (Auto) Lymph % (Auto) [place] % (Auto) Eos % (Auto) Baso % (Auto) Absolute Neuts (auto) Absolute Lymphs (auto) Total Counted Diff Path Review Specimen Type Sample Site VBG pH VBG pO2 VBG O2 Sat (Calc) VBG O2 Content VBG Base Excess POC Mix VBG pCO2 Pt Tmp O2 Delivery Device Blood Gas Notified Whom Blood Gas Notified Time Sodium 133 L Potassium 4.0 Chloride 106 Carbon Dioxide 9.0 L* Anion Gap 18 H BUN 8 Creatinine 0.85 Estim Creat Clear Calc 88.67 Est GFR (MDRD) Af Amer 102 Est GFR (MDRD) Non-Af 84 BUN/Creatinine Ratio 9.4 L Glucose 269 H Calcium 8.1 L Total Bilirubin AST ALT Alkaline Phosphatase Total Protein Albumin Globulin Albumin/Globulin Ratio Lipase Urine Color Urine Clarity Urine pH Ur Specific [place] Urine Protein Urine Glucose (UA) Urine Ketones Urine Occult Blood Urine Nitrite Urine Bilirubin Urine Urobilinogen Ur Leukocyte Esterase Urine RBC Urine WBC Ur Squamous Epith Cells Urine Bacteria Urine Mucus Acetone Level MODERATE H POC Glucose 300 H 08/12/18 06:03 WBC RBC Hgb Hct MCV MCH MCHC RDW RDW Differential Plt Count MPV Immature Gran % (Auto) Neut % (Auto) Lymph % (Auto) [place] % (Auto) Eos % (Auto) Baso % (Auto) Absolute Neuts (auto) Absolute Lymphs (auto) Total Counted Diff Path Review Specimen Type MIGUEL Sample Site R Brachial VBG pH 7.04 L* VBG pO2 38 VBG O2 Sat (Calc) 50 VBG O2 Content 8 L VBG Base Excess -24 L POC Mix VBG pCO2 Pt Tmp 25.5 L O2 Delivery Device Room Air Blood Gas Notified Whom ED Blood Gas Notified Time 600 Sodium Potassium Chloride Carbon Dioxide Anion Gap BUN Creatinine Estim Creat Clear Calc Est GFR (MDRD) Af Amer Est GFR (MDRD) Non-Af BUN/Creatinine Ratio Glucose Calcium Total Bilirubin AST ALT Alkaline Phosphatase Total Protein Albumin Globulin Albumin/Globulin Ratio Lipase Urine Color Urine Clarity Urine pH Ur Specific [place] Urine Protein Urine Glucose (UA) Urine Ketones Urine Occult Blood Urine Nitrite Urine Bilirubin Urine Urobilinogen Ur Leukocyte Esterase Urine RBC Urine WBC Ur Squamous Epith Cells Urine Bacteria Urine Mucus Acetone Level POC Glucose - Medical Decision Making Patient was treated with IV fluids, fentanyl, Bentyl, and Zofran. On reevaluation, she is feeling and appearing much better. Her workup, however, shows an anion gap metabolic acidosis, with hyperglycemia. She is on Diamox, and although that can give a metabolic acidosis with a low bicarb, it should not raise the anion gap. Her CT was normal. I added serum ketones, which were moderate. This workup appears consistent with DKA, although we do not have a pH or blood gas. She is a type II diabetic on metformin in addition to insulin's, and would not be expected to go into DKA, she does not have a history of it. She was given a dose of subcutaneous insulin. Sugar came down to 300 less than an hour afterwards, and at this time an hour after that, I am repeating her BMP and obtaining a venous pH in addition. Patient is resting comfortably at this time. 0615 --venous pH returns at 7.035, consistent with DKA in context. Patient has a very small peripheral IV that is in her chest, she is a very difficult stick. She will need a central line in order to start insulin drip and the other necessary fluids and admission to ICU. She states she is on Diamox for pseudotumor cerebri, and despite receiving acetaminophen, she has a moderate-severe headache. Consented patient for central line and after several attempts, was unsuccessful at the right subclavian site, due to the needles bending because of the amount of pressure necessary in order to get beneath her clavicle. I had nursing attempt a repeat peripheral line, but even in her hand they were unable to cannulate a vein without a blowing. The patient was then amenable to a right internal jugular vein placement, which was successfully performed. Procedures Procedure(s): Central line placement for access --3 attempts initially spent on the right subclavian vein site after obtaining informed consent and locally anesthetizing with 5 cc of 1% plain lidocaine, but were unsuccessful in finding subclavian vein. Other than discomfort, no complications otherwise. After patient rested, she was amenable to attempting IJ. We performed a new set up with a new kit. Patient was prepped and draped in sterile fashion with chlorhexidine and locally anesthetized with an additional 2 cc of 1% lidocaine. Sterile ultrasound was used and guidance during the procedure. The pulsatile carotid artery was kept medially, and during inspiration, the internal jugular vein dilated and was easily cannulated with a finder needle. Via modified Seldinger technique, wire was easily passed through the needle, and the catheter was placed over the wire after dilating. All 3 ports ben back dark red blood and flushed easily. A 16 cm triple-lumen catheter was sutured in place. Verification via x-ray pending. Critical care time (excluding procedures): 30-74 minutes - 35 min ED Disposition - Plan for ED Patient: Disposition: Acute Care Hospital [facility] Chief Complaint: Abd Pain Diagnosis: DKA (diabetic ketoacidoses)
[2018-08-12] MEDS: fentaNYL 100 MCG/2 ML Ampul 50 MCG IV ×2 (01:03→07:51)
[2018-08-12] MEDS: 0.9% Normal Saline 1,000 ML 200 ML IV ×2 (01:03→09:42)
[2018-08-12] MEDS: Ondansetron 4 MG/2 ML Vial IV (01:03)
[2018-08-12] MEDS: Dicyclomine 20 MG/2 ML Vial IM (01:05)
[2018-08-12 01:48] LABS: Absolute Lymphocyte Count 1.45 X10^3/ul (0.83-4.51); Absolute Neutrophil Count 10.5 X10^3/uL (2.0-7.7); Basophil# 0.06 X10^3/uL; Basophil% 0.5 % (0-1); Eosinophil# 0.03 X10^3/uL; Eosinophils% 0.2 % (0-5); Hematocrit 47.2 % (37-47); Lymphocyte # 1.45 X10^3/ul (4.0); Lymphocyte % 11.3 % (19-41); Mean Corp Hgb Conc 33.9 g/gl (32-36); Mean Corpuscular Hgb 30.2 pg (27.0-32.0); Mean Corpuscular Volume 89.1 fL (81-99); Mean Platelet Vol. 11.3 fl (6.2-12.0); Monocyte# 0.51 X10^3/uL; Neutrophil # 10.48 X10^3/uL (2.7-7.7); Neutrophil % 81.7 % (47-70); POSITIVE COUNT YES; POSITIVE DIFFERENTIAL NO; POSITIVE MORPHOLOGY YES; Platelet Count 274 K/mm3 (150-450); RBC Distribution Width CV 13.1 % (11.6-14.6); RBC Distribution Width SD 42.9 fl (35.1-43.9); White Blood Count 12.8 K/mm3 (4.4-11.0)
[2018-08-12 01:56] LABS: ALB/GLOB Ratio 0.8 RATIO (0.9-2.4); AST(SGOT) 12 U/L (15-37); Alanine Aminotransfer ALT/SGPT 25 U/L (13-56); Albumin, Serum 3.5 g/dL (3.2-5.0); Alkaline Phosphatase 160 U/L (45-117); Anion Gap 20 (5-15); BUN 9 mg/dL (7-18); BUN/Creat Ratio 11.1 RATIO (10-20); Calcium,Total 8.2 mg/dL (8.5-10.1); Chloride 103 mmol/L (98-107); Creatinine, Serum 0.81 mg/dL (0.55-1.02); EST Glomerular Filtration Rate 89 mL/min (>60); Est Glom Filt Rate - Afr Amer 108 mL/min (>60); Estimated Creatinine Clearance 93.05 ml/min; Globulin 4.3 g/dL (2.2-4.2); Glucose 344 mg/dL (74-106); Lipase 53 U/L (73-393); Protein, Total 7.8 g/dL (6.4-8.2); Sodium Level 133 mmol/L (136-145)
[2018-08-12] MEDS: Insulin Lispro 100 UNIT/ML INSULN.PEN 10 UNIT SC ×2 (03:19→16:12)
[2018-08-12] MEDS: Acetaminophen 500 MG Tablet 1000 MG PO (04:08)
[2018-08-12 04:21] LABS: Bedside Glucose 300 mg/dL (70-110)
[2018-08-12 06:10] LABS: Blood Gas Specimen Type VEN; O2 Delivery Device Room Air; SITE R Brachial; Time Given 600; VBG BASE EXCESS -24 mmol/L (-1.0-3.5); VBG Bicarbonate 7 mmol/L (22-26); VBG Oxygen Content 8 mmol/L (23-33); VBG PO2 38 mmHg (25-40); VBG SO2 50 % (50-70); VBG pCO2 25.5 mmHg (41-51); VBG pH 7.04 (7.32-7.42)
[2018-08-12 06:40] LABS: Anion Gap 18 (5-15); BUN 8 mg/dL (7-18); BUN/Creat Ratio 9.4 RATIO (10-20); Calcium,Total 8.1 mg/dL (8.5-10.1); Chloride 106 mmol/L (98-107); Creatinine, Serum 0.85 mg/dL (0.55-1.02); EST Glomerular Filtration Rate 84 mL/min (>60); Est Glom Filt Rate - Afr Amer 102 mL/min (>60); Estimated Creatinine Clearance 88.67 ml/min; Glucose 269 mg/dL (74-106); Sodium Level 133 mmol/L (136-145)
--- NOTE | 2018-08-12 06:42 | ED.RN ---
DR RINALDI MADE AWARE OF CO2 9.
[2018-08-12] MEDS: traMADol 50 MG Tablet PO (06:45)
--- NOTE | 2018-08-12 06:45 | ED.RN ---
DR. STEWART IS IN THE ROOM ATTEMPTING TO PLACE A CENTRAL LINE. NIKKI VARGAS IS AT THE BEDSIDE.
[2018-08-12] MEDS: proMETHazine 25 MG/ML Syringe 6.25 MG IV (07:20)
--- NOTE | 2018-08-12 07:27 | ED.RN ---
DR. STEWART WAS UNABLE TO GET THE CENTRAL LINE INSERTED. HE SAID GO AHEAD AND START THE INSULIN IN THE ONLY LINE WE HAVE IN THE RIGHT CHEST. TWO NURSE ARE NOT ATTEMPTING TO START ANOTHER IV. INSULIN WAS STARTED BY THIS NURSE IN THE RIGHT CHEST IV.
--- NOTE | 2018-08-12 07:36 | ED.RN ---
THE TWO NURSES WERE NOT SUCCESSFUL IN GETTING A PERIPHERAL IV. MADE AWARE.
--- NOTE | 2018-08-12 08:20 | RAD_ITS ---
STUDY: X-RAY CHEST REASON FOR EXAM: Female, 28 years old. Line placement TECHNIQUE: Frontal views COMPARISON: July 09, 2018 FINDINGS: Right-sided venous line is noted with tip at the mid SVC level. The lungs are expanded. Evaluation is limited due to overpenetration of the radiographs. Normal size heart. Normal mediastinum and dorian. Normal visualized pulmonary arteries. Normal visualized aortic arch and descending thoracic aorta. Normal visualized thoracic spine. Normal visualized ribs, clavicles, and shoulders. There is no demonstrated abnormality of the visualized soft tissue structures of the upper abdomen. RAD/Chest 1 View (Portable) IMPRESSION: Central line with tip in the mid SVC level. Electronically Signed: Jan Levy DO at 8:38 EDT Tel [phone], Service support ,
[2018-08-12 08:31] LABS: Bedside Glucose 268 mg/dL (70-110)
[2018-08-12 08:31] LABS: Bedside Glucose 220 mg/dL (70-110)
[2018-08-12] MEDS: 0.9% Normal Saline 1,000 ML 500 ML IV (08:32)
[2018-08-12 08:44] LABS: Anion Gap 18 (5-15); BUN 7 mg/dL (7-18); Chloride 107 mmol/L (98-107); Creatinine, Serum 0.78 mg/dL (0.55-1.02); EST Glomerular Filtration Rate 94 mL/min (>60); Est Glom Filt Rate - Afr Amer 113 mL/min (>60); Estimated Creatinine Clearance 96.62 ml/min; Glucose 204 mg/dL (74-106); Potassium 3.4 mmol/L (3.5-5.1); Sodium Level 135 mmol/L (136-145)
[2018-08-12 10:31] LABS: Bedside Glucose 205 mg/dL (70-110)
[2018-08-12 10:31] LABS: Bedside Glucose 166 mg/dL (70-110)
[2018-08-12 10:37] LABS: Internal QC Validated? YES +Cl - CLEAR BKGD; Pregnancy, Urine Negative Negative
[2018-08-12 11:11] LABS: Bedside Glucose 184 mg/dL (70-110)
[2018-08-12 11:18] LABS: Hemoglobin A1c 13.2 % (4.2-6.3)
[2018-08-12] MEDS: 0.9% NaCl Peripheral Flush Adult/Peds IV ×2 (11:20→16:11)
[2018-08-12 11:51] LABS: Anion Gap 17 (5-15); BUN 7 mg/dL (7-18); Calcium,Total 7.7 mg/dL (8.5-10.1); Chloride 110 mmol/L (98-107); EST Glomerular Filtration Rate 105 mL/min (>60); Est Glom Filt Rate - Afr Amer 128 mL/min (>60); Estimated Creatinine Clearance 103.32 ml/min; Glucose 200 mg/dL (74-106); Potassium 3.8 mmol/L (3.5-5.1); Sodium Level 137 mmol/L (136-145)
--- NOTE | 2018-08-12 12:11 | HP.PCM_ITS ---
Problem List (1) DM2 (diabetes mellitus, type 2) Status: Chronic (2) Morbid obesity Status: Chronic (3) Hypertension Status: Chronic (4) Hyperlipidemia Status: Chronic Qualifiers: Hyperlipidemia type: unspecified Qualified Code(s): E78.5 - Hyperlipidemia, unspecified (5) Depression Status: Chronic (6) DKA (diabetic ketoacidoses) Status: Acute History of Present Illness Date of Admission: 08/12/18 Chief Complaint: Nausea and vomiting The patient is a 28 year old F with a PMH as above presented to the ER with nausea and vomiting and abdominal pain which all started yesterday and then diarrhea this morning. She was diagnosed with diabetes in november and has had a difficult time managing the diabetes. Per her , her BG for the last few weeks has been in the 500's at home. She has lost some weight in the last month. The history was obtained from the chart and the because she has been sleeping and has difficulty staying awake. In the ER, CT abdomen was negative for any acute process however on labs she was found to be acidotic with a gap of 18 and a glucose level of 269 and ketones. She was admitted to the ICU on an insulin drip after a Right IJ was placed. Past Medical History Past Medical History (Chronic Problems): Chronic Problems DM2 (diabetes mellitus, type 2) (Chronic) Morbid obesity (Chronic) Hypertension (Chronic) Hyperlipidemia (Chronic) Depression (Chronic) Pseudotumor cerebri (Chronic) Radiation (Chronic) Uterine cancer (Chronic) Allergies ibuprofen Allergy (Verified 08/11/18 23:55) Laryngospasms ketorolac [From Toradol] Allergy (Verified 08/11/18 23:55) Hives morphine Allergy (Verified 08/11/18 23:55) Hives naproxen Allergy (Verified 08/11/18 23:55) Laryngospasms Home Medications: Ambulatory Orders Medication Instructions Recorded Clonazepam [Klonopin] 0.5 mg PO TID 10/22/16 Sertraline HCl [Zoloft] 200 mg PO DAILY 10/22/16 Methylphenidate HCl [Ritalin] 10 mg PO DAILY 12/29/16 Omeprazole [Prilosec] 10 mg PO DAILY 02/21/17 Ondansetron [Zofran Odt] 4 mg PO Q8H PRN PRN #10 tablet 07/19/17 Atorvastatin Calcium [Lipitor] 10 mg PO QHS 01/10/18 Lisinopril [Prinivil] 5 mg PO DAILY 01/10/18 Dicyclomine HCl [Bentyl] 20 mg PO ACHS 01/11/18 Metformin HCl [Glucophage] 1,000 mg PO BIDCM 01/11/18 Methylphenidate HCl [Ritalin] 20 mg PO DINNER 01/15/18 Insulin Glargine,Hum.rec.anlog 50 units SC QHS 07/09/18 [Toujeo Solostar] Insulin Lispro [Admelog] 10 units SC BREAKFAST 07/09/18 Insulin Lispro [Admelog] 10 units SC PRN PRN 07/09/18 Surgical History: cholecystectomy, herniorrhaphy, hysterectomy, - - hysteroscopy, ovarian moving Smoking Status: Former smoker Alcohol: None - *Family History Maternal History Items: - - uterine cancer, thyroid diabetes Paternal History Items: - - not sure Review of Systems Unable to obtain accurate/complete ROS d/t: d/t lethargy and inability to stay a wake VTE Information - Inpt Only VTE Present on Admission: No Patient Problems: Active and Suspected Problems DKA (diabetic ketoacidoses) (Acute) - Physical Exam General: Lethargic HEENT: Atraumatic, Normocephalic Oral: Dry Mucosa Neck: Supple, - - obese, exam limited Lungs: Clear to auscultation, Normal air movement, No rhonchi, No wheeze, No rales Cardiovascular: Regular rate, Regular Rhythm, Normal S1, Normal S2, No murmurs Abdomen: Soft, Non-Distended, No Hepato-splenomegaly, Obese Extremities: No edema, Capillary Refill Less than 3 Seconds Skin: No rashes, No breakdown Comment: Exam severely limited by body habitus Vital Signs Temp Pulse Resp BP Pulse Ox 97.0 F L 106 H 17 134/87 H 98 08/12/18 09:00 08/12/18 11:00 08/12/18 11:00 08/12/18 11:00 08/12/18 11:00 Oxygen Delivery Method Room Air Weight: 312 lb 6.32 oz Body Mass Index (BMI) 52.0 Finger Stick Blood Glucose 220 Laboratory Tests Past 24 Hrs 10/21/18 10/21/18 10/21/18 00:02 00:03 01:25 WBC 12.8 H RBC 5.30 Hgb 16.0 H Hct 47.2 H MCV 89.1 MCH 30.2 MCHC 33.9 RDW 13.1 RDW Differential 42.9 Plt Count 274 MPV 11.3 Immature Gran % (Auto) 2.300 H Neut % (Auto) 81.7 H Lymph % (Auto) 11.3 L [place] % (Auto) 4.0 Eos % (Auto) 0.2 Baso % (Auto) 0.5 Absolute Neuts (auto) 10.5 H Absolute Lymphs (auto) 1.45 Total Counted Not Reportable Diff Path Review May foll Specimen Type Sample Site VBG pH VBG pO2 VBG O2 Sat (Calc) VBG O2 Content VBG Base Excess POC Mix VBG pCO2 Pt Tmp O2 Delivery Device Blood Gas Notified Whom Blood Gas Notified Time Sodium Potassium Chloride Carbon Dioxide Anion Gap BUN Creatinine Estim Creat Clear Calc Est GFR (MDRD) Af Amer Est GFR (MDRD) Non-Af BUN/Creatinine Ratio Glucose Hemoglobin A1c Calcium Total Bilirubin AST ALT Alkaline Phosphatase Total Protein Albumin Globulin Albumin/Globulin Ratio Lipase Urine Color Yellow Urine Clarity Clear Urine pH 5.0 Ur Specific [place] 1.025 Urine Protein 100 H Urine Glucose (UA) 1000 H Urine Ketones 150 H Urine Occult Blood 25 H Urine Nitrite Negative Urine Bilirubin Negative Urine Urobilinogen Normal Ur Leukocyte Esterase 500 H Urine RBC 0 SEEN Urine WBC 0-5 SEEN Ur Squamous Epith Cells 0-5 SEEN Urine Bacteria 0 SEEN Urine Mucus 0 SEEN Urine Test Negative Acetone Level 08/12/18 08/12/18 08/12/18 01:25 01:25 01:27 WBC RBC Hgb Hct MCV MCH MCHC RDW RDW Differential Plt Count MPV Immature Gran % (Auto) Neut % (Auto) Lymph % (Auto) [place] % (Auto) Eos % (Auto) Baso % (Auto) Absolute Neuts (auto) Absolute Lymphs (auto) Total Counted Diff Path Review Specimen Type Sample Site VBG pH VBG pO2 VBG O2 Sat (Calc) VBG O2 Content VBG Base Excess POC Mix VBG pCO2 Pt Tmp O2 Delivery Device Blood Gas Notified Whom Blood Gas Notified Time Sodium 133 L Potassium 4.0 Chloride 103 Carbon Dioxide 10.0 L Anion Gap 20 H BUN 9 Creatinine 0.81 Estim Creat Clear Calc 93.05 Est GFR (MDRD) Af Amer 108 Est GFR (MDRD) Non-Af 89 BUN/Creatinine Ratio 11.1 Glucose 344 H Hemoglobin A1c 13.2 H Calcium 8.2 L Total Bilirubin 0.50 AST 12 L ALT 25 Alkaline Phosphatase 160 H Total Protein 7.8 Albumin 3.5 Globulin 4.3 H Albumin/Globulin Ratio 0.8 L Lipase 53 L Urine Color Urine Clarity Urine pH Ur Specific [place] Urine Protein Urine Glucose (UA) Urine Ketones Urine Occult Blood Urine Nitrite Urine Bilirubin Urine Urobilinogen Ur Leukocyte Esterase Urine RBC Urine WBC Ur Squamous Epith Cells Urine Bacteria Urine Mucus Urine Test Acetone Level MODERATE H 08/12/18 08/12/18 08/12/18 05:57 06:03 08:25 WBC RBC Hgb Hct MCV MCH MCHC RDW RDW Differential Plt Count MPV Immature Gran % (Auto) Neut % (Auto) Lymph % (Auto) [place] % (Auto) Eos % (Auto) Baso % (Auto) Absolute Neuts (auto) Absolute Lymphs (auto) Total Counted Diff Path Review Specimen Type MIGUEL Sample Site R Brachial VBG pH 7.04 L* VBG pO2 38 VBG O2 Sat (Calc) 50 VBG O2 Content 8 L VBG Base Excess -24 L POC Mix VBG pCO2 Pt Tmp 25.5 L O2 Delivery Device Room Air Blood Gas Notified Whom ED Blood Gas Notified Time 600 Sodium 133 L 135 L Potassium 4.0 3.4 L Chloride 106 107 Carbon Dioxide 9.0 L* 10.0 L Anion Gap 18 H 18 H BUN 8 7 Creatinine 0.85 0.78 Estim Creat Clear Calc 88.67 96.62 Est GFR (MDRD) Af Amer 102 113 Est GFR (MDRD) Non-Af 84 94 BUN/Creatinine Ratio 9.4 L 9.0 L Glucose 269 H 204 H Hemoglobin A1c Calcium 8.1 L 8.0 L Total Bilirubin AST ALT Alkaline Phosphatase Total Protein Albumin Globulin Albumin/Globulin Ratio Lipase Urine Color Urine Clarity Urine pH Ur Specific [place] Urine Protein Urine Glucose (UA) Urine Ketones Urine Occult Blood Urine Nitrite Urine Bilirubin Urine Urobilinogen Ur Leukocyte Esterase Urine RBC Urine WBC Ur Squamous Epith Cells Urine Bacteria Urine Mucus Urine Test Acetone Level 08/12/18 11:25 WBC RBC Hgb Hct MCV MCH MCHC RDW RDW Differential Plt Count MPV Immature Gran % (Auto) Neut % (Auto) Lymph % (Auto) [place] % (Auto) Eos % (Auto) Baso % (Auto) Absolute Neuts (auto) Absolute Lymphs (auto) Total Counted Diff Path Review Specimen Type Sample Site VBG pH VBG pO2 VBG O2 Sat (Calc) VBG O2 Content VBG Base Excess POC Mix VBG pCO2 Pt Tmp O2 Delivery Device Blood Gas Notified Whom Blood Gas Notified Time Sodium 137 Potassium 3.8 Chloride 110 H Carbon Dioxide 10.0 L Anion Gap 17 H BUN 7 Creatinine 0.70 Estim Creat Clear Calc 103.32 Est GFR (MDRD) Af Amer 128 Est GFR (MDRD) Non-Af 105 BUN/Creatinine Ratio 10.0 Glucose 200 H Hemoglobin A1c Calcium 7.7 L Total Bilirubin AST ALT Alkaline Phosphatase Total Protein Albumin Globulin Albumin/Globulin Ratio Lipase Urine Color Urine Clarity Urine pH Ur Specific [place] Urine Protein Urine Glucose (UA) Urine Ketones Urine Occult Blood Urine Nitrite Urine Bilirubin Urine Urobilinogen Ur Leukocyte Esterase Urine RBC Urine WBC Ur Squamous Epith Cells Urine Bacteria Urine Mucus Urine Test Acetone Level POC Glucose 08/12/18 08/12/18 08/12/18 10:57 10:19 08:54 POC Glucose 184 H 166 H 205 H 08/12/18 08/12/18 08/12/18 08:24 07:26 04:11 POC Glucose 220 H 268 H 300 H Assessment/Plan All Active Problems Meningitis (Acute) Headache (Acute) Neck pain (Acute) Endometrial cancer (Resolved) Acute maxillary sinusitis (Acute) DKA (diabetic ketoacidoses) (Acute) Abdominal pain (Acute) Ovarian cancer on left (Acute) Cholelithiasis (Resolved) 1. DKA in the setting of Dm2 - will initiate DKA protocol in the ICU - No consult to reconciliation coordinator - Will hold her home PO medications of metformin and just resume her home insulin once her drip is discontinued - I had an extensive discussion with the about weight management - She is a great candidate for gastric bypass based on her BMI and comorbidities, however, after talking to the , psychologically I dont think she would be successful in the long run with a gastric bypass or sleeve - Zofran prn - c/w to dietitian for counseling 2. HTN/HLD - Will continue with her lisinopril when stable - C/w lipitor 3. Depression and anxiety - c/w klonopin and zoloft - Stable 4. GERD - stable - c/w prilosec DVT: Lovenox Diet: Clears Code Visit Inpatient E&M: 41760 Init Hosp L3
[2018-08-12] MEDS: Enoxaparin 40 MG/0.4 ML Syringe SC (14:18)
[2018-08-12] MEDS: clonazePAM 0.5 MG Tablet PO ×2 (14:23→21:18)
[2018-08-12] MEDS: Fluconazole 100 MG Tablet 400 MG PO (14:54)
[2018-08-12] MEDS: Sertraline 100 MG Tablet 200 MG PO (14:54)
[2018-08-12] MEDS: Pantoprazole Sodium 20 MG Tablet PO (14:55)
[2018-08-12] MEDS: Acetaminophen 325 MG Tablet 650 MG PO (14:57)
[2018-08-12 16:11] LABS: Bedside Glucose 279 mg/dL (70-110)
[2018-08-12] MEDS: Insulin Lispro 100 UNIT/ML INSULN.PEN SC ×2 (16:12→21:14)
[2018-08-12 16:40] LABS: Anion Gap 20 (5-15); BUN 7 mg/dL (7-18); BUN/Creat Ratio 8.6 RATIO (10-20); Calcium,Total 7.5 mg/dL (8.5-10.1); Chloride 107 mmol/L (98-107); Creatinine, Serum 0.81 mg/dL (0.55-1.02); EST Glomerular Filtration Rate 90 mL/min (>60); Est Glom Filt Rate - Afr Amer 108 mL/min (>60); Estimated Creatinine Clearance 93.05 ml/min; Glucose 307 mg/dL (74-106); Potassium 4.1 mmol/L (3.5-5.1); Sodium Level 135 mmol/L (136-145)
[2018-08-12] MEDS: 0.9% Normal Saline 1,000 ML 999 ML IV (19:24)
[2018-08-12 20:11] LABS: Bedside Glucose 244 mg/dL (70-110)
[2018-08-12] MEDS: Atorvastatin Calcium 10 MG Tablet PO (21:14)
[2018-08-12 21:20] LABS: Bedside Glucose 207 mg/dL (70-110)
[2018-08-12 21:46] LABS: Anion Gap 14 (5-15); BUN 5 mg/dL (7-18); BUN/Creat Ratio 6.9 RATIO (10-20); Calcium,Total 7.4 mg/dL (8.5-10.1); Chloride 111 mmol/L (98-107); Creatinine, Serum 0.73 mg/dL (0.55-1.02); EST Glomerular Filtration Rate 101 mL/min (>60); Est Glom Filt Rate - Afr Amer 122 mL/min (>60); Estimated Creatinine Clearance 103.24 ml/min; Glucose 215 mg/dL (74-106); Potassium 3.7 mmol/L (3.5-5.1); Sodium Level 136 mmol/L (136-145)
[2018-08-12 22:50] LABS: Bedside Glucose 203 mg/dL (70-110)
[2018-08-13] VITALS (21 sets, daily range): BP systolic 105–158; BP diastolic 42–93; PULSE 79–99; RESP 14–27; TEMP 36.2–37; O2SAT 96–100
[2018-08-13] MEDS: Insulin Lispro 100 UNIT/ML INSULN.PEN SC ×7 (01:04→21:11)
[2018-08-13 01:11] LABS: Bedside Glucose 177 mg/dL (70-110)
[2018-08-13 01:26] LABS: Anion Gap 14 (5-15); BUN 5 mg/dL (7-18); BUN/Creat Ratio 6.7 RATIO (10-20); Calcium,Total 7.6 mg/dL (8.5-10.1); Chloride 111 mmol/L (98-107); Creatinine, Serum 0.75 mg/dL (0.55-1.02); EST Glomerular Filtration Rate 98 mL/min (>60); Est Glom Filt Rate - Afr Amer 119 mL/min (>60); Estimated Creatinine Clearance 100.49 ml/min; Glucose 193 mg/dL (74-106); Potassium 3.8 mmol/L (3.5-5.1); Sodium Level 137 mmol/L (136-145)
[2018-08-13 04:41] LABS: Bedside Glucose 188 mg/dL (70-110)
[2018-08-13 05:22] LABS: Anion Gap 14 (5-15); BUN 5 mg/dL (7-18); BUN/Creat Ratio 6.4 RATIO (10-20); Chloride 110 mmol/L (98-107); Creatinine, Serum 0.79 mg/dL (0.55-1.02); EST Glomerular Filtration Rate 93 mL/min (>60); Est Glom Filt Rate - Afr Amer 112 mL/min (>60); Glucose 200 mg/dL (74-106); Sodium Level 136 mmol/L (136-145)
[2018-08-13] MEDS: clonazePAM 0.5 MG Tablet PO ×3 (06:14→21:09)
[2018-08-13 06:20] LABS: Absolute Lymphocyte Count 1.43 X10^3/ul (0.83-4.51); Absolute Neutrophil Count 7.4 X10^3/uL (2.0-7.7); Basophil# 0.02 X10^3/uL; Basophil% 0.2 % (0-1); Eosinophil# 0.01 X10^3/uL; Eosinophils% 0.1 % (0-5); Hematocrit 42.2 % (37-47); Hemoglobin 13.8 g/dl (12.0-15.0); Lymphocyte # 1.43 X10^3/ul (4.0); Lymphocyte % 14.8 % (19-41); Mean Corp Hgb Conc 32.7 g/gl (32-36); Mean Corpuscular Hgb 29.2 pg (27.0-32.0); Mean Corpuscular Volume 89.4 fL (81-99); Mean Platelet Vol. 10.1 fl (6.2-12.0); Monocyte# 0.56 X10^3/uL; Monocyte% 5.8 % (0-10); Neutrophil # 7.41 X10^3/uL (2.7-7.7); Neutrophil % 76.4 % (47-70); Platelet Count 223 K/mm3 (150-450); RBC Distribution Width CV 13.7 % (11.6-14.6); Red Blood Count 4.72 M/mm3 (4.2-5.4); White Blood Count 9.7 K/mm3 (4.4-11.0)
[2018-08-13 06:22] LABS: POSITIVE COUNT YES; POSITIVE DIFFERENTIAL NO; POSITIVE MORPHOLOGY YES
[2018-08-13] MEDS: Acetaminophen 325 MG Tablet 650 MG PO ×3 (06:22→21:16)
[2018-08-13 06:26] LABS: Bedside Glucose 193 mg/dL (70-110)
--- NOTE | 2018-08-13 09:42 | CASEMGMT ---
RN CM Assesmment Pt presented to ER with N/V, abd pain. Recent (12-10) dx of diabetes. BS ranging 500's at home per S.O. Intro role of CM to patient. Pt states she has Blood Glucose monitoring equipment @ home and is has prescription coverage to obtain insulins. [facility] to see pt in hospital, Diabetic Clinic information given to pt by [facility]. Discussed f/u with DAVID Cota on dc, pt is agreeable to have CM make f/u appt. PCP: Olga Lidia Pang Specialists: DAVID Cota NP (new pt appt made for 09/11/18 @ 10:30 am) [facility] Insurance: [employer]/C Prescription Benefit:? yes Living Arrangements: Apartment DME/HHC: none ? Plan: Home, f/u with DAVID Cota, diabetic clinic.
[2018-08-13] MEDS: Insulin Lispro 100 UNIT/ML INSULN.PEN 10 UNIT SC ×2 (09:50→15:13)
[2018-08-13] MEDS: Enoxaparin 40 MG/0.4 ML Syringe SC (09:50)
[2018-08-13] MEDS: Fluconazole 100 MG Tablet 400 MG PO (09:51)
[2018-08-13] MEDS: Sertraline 100 MG Tablet 200 MG PO (09:51)
[2018-08-13] MEDS: Pantoprazole Sodium 20 MG Tablet PO (09:51)
[2018-08-13 10:00] LABS: Bedside Glucose 217 mg/dL (70-110)
[2018-08-13 12:51] LABS: Bedside Glucose 251 mg/dL (70-110)
--- NOTE | 2018-08-13 15:14 | PCM.PN.HOSP ---
Patient Problems: Active and Suspected Problems DKA (diabetic ketoacidoses) (Acute) Subjective: Feels better and would like to try and eat Vitals/I&O's: Vital Signs Temp Pulse Resp BP Pulse Ox 97.9 F 98 18 132/82 H 100 08/13/18 14:00 08/13/18 14:00 08/13/18 14:00 08/13/18 14:00 08/13/18 14:00 Oxygen Delivery Method Room Air Weight: 317 lb 7.45 oz Body Mass Index (BMI) 52.0 Finger Stick Blood Glucose 220 Intake and Output for Last 24 Hours 08/11/18 08/12/18 08/13/18 23:59 23:59 23:59 Intake Total 6457 / 6457 2271 / 2271 Output Total 4325 / 4325 2200 / 2200 Balance 2132 / 213 71 / 71 General: Alert, Oriented x3, Cooperative, No apparent distress HEENT: Atraumatic, EOMI, Normocephalic Oral: Moist Mucosa Neck: Supple, No JVD Lungs: Clear to auscultation, Normal air movement, No rhonchi, No wheeze, No rales Cardiovascular: Regular rate, Regular Rhythm, Normal S1, Normal S2, No murmurs, No Ectopic Activity Abdomen: Soft, Non Tender, Non-Distended, No Hepato-splenomegaly, Obese Extremities: No edema, Capillary Refill Less than 3 Seconds Skin: No rashes, No breakdown Psych/Mental Status: Normal Affect, Appropriate Laboratory Results 08/12/18 15:48: POC Glucose 279 H 08/12/18 16:15: Sodium 135 L, Potassium 4.1, Chloride 107, Carbon Dioxide 8.0 L*, Anion Gap 20 H, BUN 7, Creatinine 0.81, Estim Creat Clear Calc 93.05, Est GFR (MDRD) Af Amer 108, Est GFR (MDRD) Non-Af 90, BUN/Creatinine Ratio 8.6 L, Glucose 307 H, Calcium 7.5 L 08/12/18 20:04: POC Glucose 244 H 08/12/18 21:13: POC Glucose 207 H 08/12/18 21:15: Sodium 136, Potassium 3.7, Chloride 111 H, Carbon Dioxide 11.0 L, Anion Gap 14, BUN 5 L, Creatinine 0.73, Estim Creat Clear Calc 103.24, Est GFR (MDRD) Af Amer 122, Est GFR (MDRD) Non-Af 101, BUN/Creatinine Ratio 6.9 L, Glucose 215 H, Calcium 7.4 L 08/12/18 22:45: POC Glucose 203 H 08/13/18 00:59: POC Glucose 177 H 08/13/18 01:05: Sodium 137, Potassium 3.8, Chloride 111 H, Carbon Dioxide 12.0 L, Anion Gap 14, BUN 5 L, Creatinine 0.75, Estim Creat Clear Calc 100.49, Est GFR (MDRD) Af Amer 119, Est GFR (MDRD) Non-Af 98, BUN/Creatinine Ratio 6.7 L, Glucose 193 H, Calcium 7.6 L 08/13/18 04:35: POC Glucose 188 H 08/13/18 04:50: Sodium 136, Potassium 4.0, Chloride 110 H, Carbon Dioxide 12.0 L, Anion Gap 14, BUN 5 L, Creatinine 0.79, Estim Creat Clear Calc 95.40, Est GFR (MDRD) Af Amer 112, Est GFR (MDRD) Non-Af 93, BUN/Creatinine Ratio 6.4 L, Glucose 200 H, Calcium 8.0 L 08/13/18 04:50: WBC 9.7, RBC 4.72, Hgb 13.8, Hct 42.2, MCV 89.4, MCH 29.2, MCHC 32.7, RDW 13.7, RDW Differential 45.0 H, Plt Count 223, MPV 10.1, Immature Gran % (Auto) 2.700 H, Neut % (Auto) 76.4 H, Lymph % (Auto) 14.8 L, [place] % (Auto) 5.8, Eos % (Auto) 0.1, Baso % (Auto) 0.2, Absolute Neuts (auto) 7.4, Absolute Lymphs (auto) 1.43, Total Counted Not Reportable, Diff Path Review February08/13/18 06:13: POC Glucose 193 H 08/13/18 09:48: POC Glucose 217 H 08/13/18 12:40: POC Glucose 251 H Current Medications Acetaminophen (Tylenol) 650 mg PO Q6H PRN PRN PRN Reason: PAIN Last Admin: 08/13/18 13:58 Dose: 650 mg Atorvastatin Calcium (Lipitor) 10 mg PO QHS [facility] Last Admin: 08/12/18 21:14 Dose: 10 mg Clonazepam (Klonopin) 0.5 mg PO TID [facility] Last Admin: 08/13/18 13:58 Dose: 0.5 mg Enoxaparin Sodium (Lovenox) 40 mg SC DAILY@1000 [facility] Last Admin: 08/13/18 09:50 Dose: 40 mg Fluconazole (Diflucan) 400 mg PO DAILY [facility] Last Admin: 08/13/18 09:51 Dose: 400 mg Glucagon () 1 mg IM .X1 PRN PRN Reason: Hypoglycemia Insulin Glargine (Lantus (Bkc)) 55 units SC QHS [facility] Last Admin: 08/12/18 19:47 Dose: 55 units Insulin Human Lispro (Humalog Kwikpen (Bkc)) 0 unit SC Q4 [facility]; Protocol Last Admin: 08/13/18 12:43 Dose: 6 units Insulin Human Lispro (Humalog Kwikpen (Bkc)) 10 unit SC TIDAC [facility] Last Admin: 08/13/18 09:50 Dose: 10 units Insulin Human Lispro (Humalog Kwikpen (Bkc)) 0 unit SC TIDAC [facility]; Protocol Last Admin: 08/13/18 12:25 Dose: Not Given Magnesium Hydroxide (Milk Of Magnesia) 30 ml PO DAILY PRN PRN PRN Reason: Constipation Ondansetron HCl (Zofran Odt) 4 mg PO Q8H PRN PRN PRN Reason: NAUSEA Pantoprazole Sodium (Protonix) 20 mg PO DAILY [facility] Last Admin: 08/13/18 09:51 Dose: 20 mg Sertraline HCl (Zoloft) 200 mg PO DAILY [facility] Last Admin: 08/13/18 09:51 Dose: 200 mg Sodium Chloride () 5 - 30 ml IV UD PRN PRN Reason: SALINE FLUSH Last Admin: 08/12/18 16:11 Dose: 10 ml Sodium Chloride () 10 - 40 ml IV UD PRN PRN Reason: MULTILUMEN/HICMAN CATH FLUSH Last Admin: 08/12/18 11:19 Dose: 10 ml Medical Necessity - Tobacco Use Smoking Status: Former smoker Assessment/Plan All Active Problems Meningitis (Acute) Headache (Acute) Neck pain (Acute) Endometrial cancer (Resolved) Acute maxillary sinusitis (Acute) DKA (diabetic ketoacidoses) (Acute) Abdominal pain (Acute) Ovarian cancer on left (Acute) Cholelithiasis (Resolved) 1. DKA in the setting of Dm2 - Transition to MS floor - Increase lantus to 70 Units and meal time to 15 Units - I had an extensive discussion with the and patient about weight management - She is a great candidate for gastric bypass based on her BMI and comorbidities, however, after talking to the , psychologically I dont think she would be successful in the long run with a gastric bypass or sleeve - Zofran prn - c/w to dietitian for counseling - Gap is closed and her VSS are stable 2. HTN/HLD - Will continue with her lisinopril when stable - C/w lipitor 3. Depression and anxiety - c/w klonopin and zoloft - Stable 4. GERD - stable - c/w prilosec DVT: Lovenox Diet: Clears Code Visit Inpatient E&M: 04859 Subs Hosp L2
--- NOTE | 2018-08-13 15:26 | PN_ITS ---
Patient Problems: Active and Suspected Problems DKA (diabetic ketoacidoses) (Acute) Subjective: Feels better and would like to try and eat Vitals/I&O's: Vital Signs Temp Pulse Resp BP Pulse Ox 97.9 F 98 18 132/82 H 100 08/13/18 14:00 08/13/18 14:00 08/13/18 14:00 08/13/18 14:00 08/13/18 14:00 Oxygen Delivery Method Room Air Weight: 317 lb 7.45 oz Body Mass Index (BMI) 52.0 Finger Stick Blood Glucose 220 Intake and Output for Last 24 Hours 08/11/18 08/12/18 08/13/18 23:59 23:59 23:59 Intake Total 6457 / 6457 2271 / 2271 Output Total 4325 / 4325 2200 / 2200 Balance 2132 / 213 71 / 71 General: Alert, Oriented x3, Cooperative, No apparent distress HEENT: Atraumatic, EOMI, Normocephalic Oral: Moist Mucosa Neck: Supple, No JVD Lungs: Clear to auscultation, Normal air movement, No rhonchi, No wheeze, No rales Cardiovascular: Regular rate, Regular Rhythm, Normal S1, Normal S2, No murmurs, No Ectopic Activity Abdomen: Soft, Non Tender, Non-Distended, No Hepato-splenomegaly, Obese Extremities: No edema, Capillary Refill Less than 3 Seconds Skin: No rashes, No breakdown Psych/Mental Status: Normal Affect, Appropriate Laboratory Results 08/12/18 15:48: POC Glucose 279 H 08/12/18 16:15: Sodium 135 L, Potassium 4.1, Chloride 107, Carbon Dioxide 8.0 L* , Anion Gap 20 H, BUN 7, Creatinine 0.81, Estim Creat Clear Calc 93.05, Est GFR (MDRD) Af Amer 108, Est GFR (MDRD) Non-Af 90, BUN/Creatinine Ratio 8.6 L, Glucose 307 H, Calcium 7.5 L 08/12/18 20:04: POC Glucose 244 H 08/12/18 21:13: POC Glucose 207 H 08/12/18 21:15: Sodium 136, Potassium 3.7, Chloride 111 H, Carbon Dioxide 11.0 L , Anion Gap 14, BUN 5 L, Creatinine 0.73, Estim Creat Clear Calc 103.24, Est GFR (MDRD) Af Amer 122, Est GFR (MDRD) Non-Af 101, BUN/Creatinine Ratio 6.9 L, Glucose 215 H, Calcium 7.4 L 08/12/18 22:45: POC Glucose 203 H 08/13/18 00:59: POC Glucose 177 H 08/13/18 01:05: Sodium 137, Potassium 3.8, Chloride 111 H, Carbon Dioxide 12.0 L , Anion Gap 14, BUN 5 L, Creatinine 0.75, Estim Creat Clear Calc 100.49, Est GFR (MDRD) Af Amer 119, Est GFR (MDRD) Non-Af 98, BUN/Creatinine Ratio 6.7 L, Glucose 193 H, Calcium 7.6 L 08/13/18 04:35: POC Glucose 188 H 08/13/18 04:50: Sodium 136, Potassium 4.0, Chloride 110 H, Carbon Dioxide 12.0 L , Anion Gap 14, BUN 5 L, Creatinine 0.79, Estim Creat Clear Calc 95.40, Est GFR (MDRD) Af Amer 112, Est GFR (MDRD) Non-Af 93, BUN/Creatinine Ratio 6.4 L, Glucose 200 H, Calcium 8.0 L 08/13/18 04:50: WBC 9.7, RBC 4.72, Hgb 13.8, Hct 42.2, MCV 89.4, MCH 29.2, MCHC 32.7, RDW 13.7, RDW Differential 45.0 H, Plt Count 223, MPV 10.1, Immature Gran % (Auto) 2.700 H, Neut % (Auto) 76.4 H, Lymph % (Auto) 14.8 L, [place] % (Auto) 5.8, Eos % (Auto) 0.1, Baso % (Auto) 0.2, Absolute Neuts (auto) 7.4, Absolute Lymphs (auto) 1.43, Total Counted Not Reportable, Diff Path Review February08/13/18 06:13: POC Glucose 193 H 08/13/18 09:48: POC Glucose 217 H 08/13/18 12:40: POC Glucose 251 H Current Medications Acetaminophen (Tylenol) 650 mg PO Q6H PRN PRN PRN Reason: PAIN Last Admin: 08/13/18 13:58 Dose: 650 mg Atorvastatin Calcium (Lipitor) 10 mg PO QHS [facility] Last Admin: 08/12/18 21:14 Dose: 10 mg Clonazepam (Klonopin) 0.5 mg PO TID [facility] Last Admin: 08/13/18 13:58 Dose: 0.5 mg Enoxaparin Sodium (Lovenox) 40 mg SC DAILY@1000 [facility] Last Admin: 08/13/18 09:50 Dose: 40 mg Fluconazole (Diflucan) 400 mg PO DAILY [facility] Last Admin: 08/13/18 09:51 Dose: 400 mg Glucagon () 1 mg IM .X1 PRN PRN Reason: Hypoglycemia Insulin Glargine (Lantus (Bkc)) 55 units SC QHS [facility] Last Admin: 08/12/18 19:47 Dose: 55 units Insulin Human Lispro (Humalog Kwikpen (Bkc)) 0 unit SC Q4 [facility]; Protocol Last Admin: 08/13/18 12:43 Dose: 6 units Insulin Human Lispro (Humalog Kwikpen (Bkc)) 10 unit SC TIDAC [facility] Last Admin: 08/13/18 09:50 Dose: 10 units Insulin Human Lispro (Humalog Kwikpen (Bkc)) 0 unit SC TIDAC [facility]; Protocol Last Admin: 08/13/18 12:25 Dose: Not Given Magnesium Hydroxide (Milk Of Magnesia) 30 ml PO DAILY PRN PRN PRN Reason: Constipation Ondansetron HCl (Zofran Odt) 4 mg PO Q8H PRN PRN PRN Reason: NAUSEA Pantoprazole Sodium (Protonix) 20 mg PO DAILY [facility] Last Admin: 08/13/18 09:51 Dose: 20 mg Sertraline HCl (Zoloft) 200 mg PO DAILY [facility] Last Admin: 08/13/18 09:51 Dose: 200 mg Sodium Chloride () 5 - 30 ml IV UD PRN PRN Reason: SALINE FLUSH Last Admin: 08/12/18 16:11 Dose: 10 ml Sodium Chloride () 10 - 40 ml IV UD PRN PRN Reason: MULTILUMEN/HICMAN CATH FLUSH Last Admin: 08/12/18 11:19 Dose: 10 ml Medical Necessity - Tobacco Use Smoking Status: Former smoker Assessment/Plan All Active Problems Meningitis (Acute) Headache (Acute) Neck pain (Acute) Endometrial cancer (Resolved) Acute maxillary sinusitis (Acute) DKA (diabetic ketoacidoses) (Acute) Abdominal pain (Acute) Ovarian cancer on left (Acute) Cholelithiasis (Resolved) 1. DKA in the setting of Dm2 - Transition to MS floor - Increase lantus to 70 Units and meal time to 15 Units - I had an extensive discussion with the and patient about weight management - She is a great candidate for gastric bypass based on her BMI and comorbidities, however, after talking to the , psychologically I dont think she would be successful in the long run with a gastric bypass or sleeve - Zofran prn - c/w to dietitian for counseling - Gap is closed and her VSS are stable 2. HTN/HLD - Will continue with her lisinopril when stable - C/w lipitor 3. Depression and anxiety - c/w klonopin and zoloft - Stable 4. GERD - stable - c/w prilosec DVT: Lovenox Diet: Clears Code Visit Inpatient E&M: 32527 Subs Hosp L2
[2018-08-13 15:41] LABS: Bedside Glucose 180 mg/dL (70-110)
[2018-08-13] MEDS: Insulin Lispro 100 UNIT/ML INSULN.PEN 15 UNIT SC (18:13)
[2018-08-13 18:21] LABS: Bedside Glucose 274 mg/dL (70-110)
[2018-08-13] MEDS: Atorvastatin Calcium 10 MG Tablet PO (21:09)
[2018-08-13 22:05] LABS: Bedside Glucose 296 mg/dL (70-110)
[2018-08-14] MEDS: Rizatriptan Benzoate 10 MG Tablet PO
[2018-08-14] MEDS: Insulin Lispro 100 UNIT/ML INSULN.PEN SC ×4 (01:48→16:59)
[2018-08-14 01:56] LABS: Bedside Glucose 209 mg/dL (70-110)
[2018-08-14 02:26] VITALS: BP 132/79; PULSE 84; RESP 16; TEMP 37.1; O2SAT 98
[2018-08-14] MEDS: Metoclopramide 10 MG/2 ML Vial IV (02:33)
[2018-08-14] MEDS: proCHLORPERazine 10 MG/2 ML Vial 5 MG IV (02:33)
[2018-08-14 06:02] LABS: Anion Gap 11 (5-15); BUN 6 mg/dL (7-18); BUN/Creat Ratio 10.2 RATIO (10-20); Calcium,Total 8.1 mg/dL (8.5-10.1); Chloride 109 mmol/L (98-107); Creatinine, Serum 0.59 mg/dL (0.55-1.02); EST Glomerular Filtration Rate 130 mL/min (>60); Est Glom Filt Rate - Afr Amer 157 mL/min (>60); Estimated Creatinine Clearance 127.74 ml/min; Glucose 195 mg/dL (74-106); Potassium 3.2 mmol/L (3.5-5.1); Sodium Level 141 mmol/L (136-145)
[2018-08-14 06:33] LABS: Absolute Lymphocyte Count 1.66 X10^3/ul (0.83-4.51); Absolute Neutrophil Count 4.2 X10^3/uL (2.0-7.7); Basophil# 0.03 X10^3/uL; Basophil% 0.5 % (0-1); Eosinophil# 0.07 X10^3/uL; Eosinophils% 1.1 % (0-5); Hematocrit 38.2 % (37-47); Hemoglobin 13.3 g/dl (12.0-15.0); Lymphocyte # 1.66 X10^3/ul (4.0); Lymphocyte % 25.5 % (19-41); Mean Corp Hgb Conc 34.8 g/gl (32-36); Mean Corpuscular Hgb 30.2 pg (27.0-32.0); Mean Corpuscular Volume 86.8 fL (81-99); Mean Platelet Vol. 10.3 fl (6.2-12.0); Monocyte# 0.45 X10^3/uL; Monocyte% 6.9 % (0-10); Neutrophil # 4.15 X10^3/uL (2.7-7.7); Neutrophil % 63.5 % (47-70); Platelet Count 185 K/mm3 (150-450); RBC Distribution Width CV 13.3 % (11.6-14.6); RBC Distribution Width SD 40.9 fl (35.1-43.9); White Blood Count 6.5 K/mm3 (4.4-11.0)
[2018-08-14 06:37] LABS: POSITIVE COUNT YES; POSITIVE DIFFERENTIAL NO; POSITIVE MORPHOLOGY YES
[2018-08-14] MEDS: clonazePAM 0.5 MG Tablet PO ×3 (06:55→21:49)
[2018-08-14] MEDS: 0.9% NaCl Peripheral Flush Adult/Peds IV ×3 (06:56→11:03)
[2018-08-14 07:11] LABS: Bedside Glucose 191 mg/dL (70-110)
[2018-08-14 09:25] VITALS: BP 112/74; PULSE 80; RESP 16; TEMP 36.8; O2SAT 98
[2018-08-14 09:36] LABS: Bedside Glucose 200 mg/dL (70-110)
[2018-08-14 10:04] LABS: Magnesium 1.7 mg/dL (1.6-2.6)
--- NOTE | 2018-08-14 10:14 | PCM.PN.HOSP ---
Patient Problems: Active and Suspected Problems DKA (diabetic ketoacidoses) (Acute) Subjective: Feels much better today no nause or vomiting. She slept well Vitals/I&O's: Vital Signs Temp Pulse Resp BP Pulse Ox 98.2 F 80 16 112/74 98 08/14/18 09:25 08/14/18 09:25 08/14/18 09:25 08/14/18 09:25 08/14/18 09:25 Oxygen Delivery Method Room Air Weight: 318 lb 12.615 oz Body Mass Index (BMI) 52.0 Finger Stick Blood Glucose 220 Intake and Output for Last 24 Hours 08/12/18 08/13/18 08/14/18 23:59 23:59 23:59 Intake Total 6457 / 6457 2671 / 2671 800 / 800 Output Total 4325 / 4325 2200 / 2200 Balance 2132 / 2132 471 / 471 800 / 800 General: Alert, Oriented x3, Cooperative, No apparent distress HEENT: Atraumatic, EOMI, Normocephalic Oral: Moist Mucosa Neck: Supple, No JVD Lungs: Clear to auscultation, Normal air movement, No rhonchi, No wheeze, No rales Cardiovascular: Regular rate, Regular Rhythm, Normal S1, Normal S2, No murmurs Abdomen: Soft, Non Tender, Non-Distended, No Hepato-splenomegaly, Obese Extremities: No edema, Capillary Refill Less than 3 Seconds Skin: No rashes, No breakdown Psych/Mental Status: Normal Affect, Appropriate Laboratory Results 08/13/18 12:40: POC Glucose 251 H 08/13/18 14:59: POC Glucose 180 H 08/13/18 18:05: POC Glucose 274 H 08/13/18 21:08: POC Glucose 296 H 08/14/18 01:47: POC Glucose 209 H 08/14/18 05:38: WBC 6.5, RBC 4.40, Hgb 13.3, Hct 38.2, MCV 86.8, MCH 30.2, MCHC 34.8, RDW 13.3, RDW Differential 40.9, Plt Count 185, MPV 10.3, Immature Gran % (Auto) 2.500 H, Neut % (Auto) 63.5, Lymph % (Auto) 25.5, [place] % (Auto) 6.9, Eos % (Auto) 1.1, Baso % (Auto) 0.5, Absolute Neuts (auto) 4.2, Absolute Lymphs (auto) 1.66, Total Counted Not Reportable, Diff Path Review February08/14/18 05:38: Sodium 141, Potassium 3.2 L, Chloride 109 H, Carbon Dioxide 21.0, Anion Gap 11, BUN 6 L, Creatinine 0.59, Estim Creat Clear Calc 127.74, Est GFR (MDRD) Af Amer 157, Est GFR (MDRD) Non-Af 130, BUN/Creatinine Ratio 10.2, Glucose 195 H, Calcium 8.1 L 08/14/18 05:38: Phosphorus 1.0 L*, Magnesium 1.7 08/14/18 06:50: POC Glucose 191 H 08/14/18 09:20: POC Glucose 200 H Current Medications Acetaminophen (Tylenol) 650 mg PO Q6H PRN PRN PRN Reason: PAIN Last Admin: 08/13/18 21:16 Dose: 650 mg Atorvastatin Calcium (Lipitor) 10 mg PO QHS [facility] Last Admin: 08/13/18 21:09 Dose: 10 mg Clonazepam (Klonopin) 0.5 mg PO TID [facility] Last Admin: 08/14/18 06:55 Dose: 0.5 mg Enoxaparin Sodium (Lovenox) 40 mg SC DAILY@1000 [facility] Last Admin: 08/13/18 09:50 Dose: 40 mg Glucagon () 1 mg IM .X1 PRN PRN Reason: Hypoglycemia Magnesium Sulfate 2 gm/ Sodium (Chloride) 104 mls @ 52 mls/hr IV X1 ONE Stop: 08/14/18 12:10 Potassium Phosphate 40 mm/ (Sodium Chloride) 513.3333 mls @ 62.5 mls/hr IV X1 ONE Stop: 08/14/18 18:23 Insulin Glargine (Lantus (Bkc)) 70 units SC QHS [facility] Last Admin: 08/13/18 21:10 Dose: 70 u Insulin Human Lispro (Humalog Kwikpen (Bkc)) 0 unit SC TIDAC [facility]; Protocol Last Admin: 08/14/18 07:02 Dose: Not Given Insulin Human Lispro (Humalog Kwikpen (Bkc)) 15 unit SC TIDAC [facility] Last Admin: 08/13/18 18:13 Dose: 15 units Magnesium Hydroxide (Milk Of Magnesia) 30 ml PO DAILY PRN PRN PRN Reason: Constipation Nystatin (Mycostatin) 1 applic TOPICAL BID [facility]; Protocol Ondansetron HCl (Zofran Odt) 4 mg PO Q8H PRN PRN PRN Reason: NAUSEA Pantoprazole Sodium (Protonix) 20 mg PO DAILY [facility] Last Admin: 08/13/18 09:51 Dose: 20 mg Sertraline HCl (Zoloft) 200 mg PO DAILY [facility] Last Admin: 08/13/18 09:51 Dose: 200 mg Sodium Chloride () 5 - 30 ml IV UD PRN PRN Reason: SALINE FLUSH Last Admin: 08/14/18 07:01 Dose: 10 ml Sodium Chloride () 10 - 40 ml IV UD PRN PRN Reason: MULTILUMEN/HICMAN CATH FLUSH Last Admin: 08/12/18 11:19 Dose: 10 ml Medical Necessity - Tobacco Use Smoking Status: Former smoker Assessment/Plan All Active Problems Meningitis (Acute) Headache (Acute) Neck pain (Acute) Endometrial cancer (Resolved) Acute maxillary sinusitis (Acute) DKA (diabetic ketoacidoses) (Acute) Abdominal pain (Acute) Ovarian cancer on left (Acute) Cholelithiasis (Resolved) 1. DKA in the setting of Dm2 - Transition to MS floor - Increase lantus to 70 Units and meal time to 15 Units, morning BG 191, will monitor today with how much sliding scale she needs and will further adjust - Plan for DC in am - c/w to dietitian for counseling - Gap is closed and her VSS are stable 2. HTN/HLD - Will continue with her lisinopril - C/w lipitor 3. Depression and anxiety - c/w klonopin and zoloft - Stable 4. GERD - stable - c/w prilosec 5. Yeast infection - Oral diflucan given - Topical treatment as well given size and likely recurrence DVT: Lovenox Diet: DM Code Visit Inpatient E&M: 29065 Subs Hosp L2
--- NOTE | 2018-08-14 10:18 | PN_ITS ---
Patient Problems: Active and Suspected Problems DKA (diabetic ketoacidoses) (Acute) Subjective: Feels much better today no nause or vomiting. She slept well Vitals/I&O's: Vital Signs Temp Pulse Resp BP Pulse Ox 98.2 F 80 16 112/74 98 08/14/18 09:25 08/14/18 09:25 08/14/18 09:25 08/14/18 09:25 08/14/18 09:25 Oxygen Delivery Method Room Air Weight: 318 lb 12.615 oz Body Mass Index (BMI) 52.0 Finger Stick Blood Glucose 220 Intake and Output for Last 24 Hours 08/12/18 08/13/18 08/14/18 23:59 23:59 23:59 Intake Total 6457 / 6457 2671 / 2671 800 / 800 Output Total 4325 / 4325 2200 / 2200 Balance 2132 / 2132 471 / 471 800 / 800 General: Alert, Oriented x3, Cooperative, No apparent distress HEENT: Atraumatic, EOMI, Normocephalic Oral: Moist Mucosa Neck: Supple, No JVD Lungs: Clear to auscultation, Normal air movement, No rhonchi, No wheeze, No rales Cardiovascular: Regular rate, Regular Rhythm, Normal S1, Normal S2, No murmurs Abdomen: Soft, Non Tender, Non-Distended, No Hepato-splenomegaly, Obese Extremities: No edema, Capillary Refill Less than 3 Seconds Skin: No rashes, No breakdown Psych/Mental Status: Normal Affect, Appropriate Laboratory Results 08/13/18 12:40: POC Glucose 251 H 08/13/18 14:59: POC Glucose 180 H 08/13/18 18:05: POC Glucose 274 H 08/13/18 21:08: POC Glucose 296 H 08/14/18 01:47: POC Glucose 209 H 08/14/18 05:38: WBC 6.5, RBC 4.40, Hgb 13.3, Hct 38.2, MCV 86.8, MCH 30.2, MCHC 34.8, RDW 13.3, RDW Differential 40.9, Plt Count 185, MPV 10.3, Immature Gran % (Auto) 2.500 H, Neut % (Auto) 63.5, Lymph % (Auto) 25.5, [place] % (Auto) 6.9, Eos % (Auto) 1.1, Baso % (Auto) 0.5, Absolute Neuts (auto) 4.2, Absolute Lymphs (auto) 1.66, Total Counted Not Reportable, Diff Path Review February08/14/18 05:38: Sodium 141, Potassium 3.2 L, Chloride 109 H, Carbon Dioxide 21.0, Anion Gap 11, BUN 6 L, Creatinine 0.59, Estim Creat Clear Calc 127.74, Est GFR (MDRD) Af Amer 157, Est GFR (MDRD) Non-Af 130, BUN/Creatinine Ratio 10.2, Glucose 195 H, Calcium 8.1 L 08/14/18 05:38: Phosphorus 1.0 L*, Magnesium 1.7 08/14/18 06:50: POC Glucose 191 H 08/14/18 09:20: POC Glucose 200 H Current Medications Acetaminophen (Tylenol) 650 mg PO Q6H PRN PRN PRN Reason: PAIN Last Admin: 08/13/18 21:16 Dose: 650 mg Atorvastatin Calcium (Lipitor) 10 mg PO QHS [facility] Last Admin: 08/13/18 21:09 Dose: 10 mg Clonazepam (Klonopin) 0.5 mg PO TID [facility] Last Admin: 08/14/18 06:55 Dose: 0.5 mg Enoxaparin Sodium (Lovenox) 40 mg SC DAILY@1000 [facility] Last Admin: 08/13/18 09:50 Dose: 40 mg Glucagon () 1 mg IM .X1 PRN PRN Reason: Hypoglycemia Magnesium Sulfate 2 gm/ Sodium (Chloride) 104 mls @ 52 mls/hr IV X1 ONE Stop: 08/14/18 12:10 Potassium Phosphate 40 mm/ (Sodium Chloride) 513.3333 mls @ 62.5 mls/hr IV X1 ONE Stop: 08/14/18 18:23 Insulin Glargine (Lantus (Bkc)) 70 units SC QHS [facility] Last Admin: 08/13/18 21:10 Dose: 70 u Insulin Human Lispro (Humalog Kwikpen (Bkc)) 0 unit SC TIDAC [facility]; Protocol Last Admin: 08/14/18 07:02 Dose: Not Given Insulin Human Lispro (Humalog Kwikpen (Bkc)) 15 unit SC TIDAC [facility] Last Admin: 08/13/18 18:13 Dose: 15 units Magnesium Hydroxide (Milk Of Magnesia) 30 ml PO DAILY PRN PRN PRN Reason: Constipation Nystatin (Mycostatin) 1 applic TOPICAL BID [facility]; Protocol Ondansetron HCl (Zofran Odt) 4 mg PO Q8H PRN PRN PRN Reason: NAUSEA Pantoprazole Sodium (Protonix) 20 mg PO DAILY [facility] Last Admin: 08/13/18 09:51 Dose: 20 mg Sertraline HCl (Zoloft) 200 mg PO DAILY [facility] Last Admin: 08/13/18 09:51 Dose: 200 mg Sodium Chloride () 5 - 30 ml IV UD PRN PRN Reason: SALINE FLUSH Last Admin: 08/14/18 07:01 Dose: 10 ml Sodium Chloride () 10 - 40 ml IV UD PRN PRN Reason: MULTILUMEN/HICMAN CATH FLUSH Last Admin: 08/12/18 11:19 Dose: 10 ml Medical Necessity - Tobacco Use Smoking Status: Former smoker Assessment/Plan All Active Problems Meningitis (Acute) Headache (Acute) Neck pain (Acute) Endometrial cancer (Resolved) Acute maxillary sinusitis (Acute) DKA (diabetic ketoacidoses) (Acute) Abdominal pain (Acute) Ovarian cancer on left (Acute) Cholelithiasis (Resolved) 1. DKA in the setting of Dm2 - Transition to MS floor - Increase lantus to 70 Units and meal time to 15 Units, morning BG 191, will monitor today with how much sliding scale she needs and will further adjust - Plan for DC in am - c/w to dietitian for counseling - Gap is closed and her VSS are stable 2. HTN/HLD - Will continue with her lisinopril - C/w lipitor 3. Depression and anxiety - c/w klonopin and zoloft - Stable 4. GERD - stable - c/w prilosec 5. Yeast infection - Oral diflucan given - Topical treatment as well given size and likely recurrence DVT: Lovenox Diet: DM Code Visit Inpatient E&M: 66616 Subs Hosp L2
[2018-08-14] MEDS: Insulin Lispro 100 UNIT/ML INSULN.PEN 15 UNIT SC ×3 (10:21→16:58)
[2018-08-14] MEDS: Pantoprazole Sodium 20 MG Tablet PO (10:29)
[2018-08-14] MEDS: Sertraline 100 MG Tablet 200 MG PO (10:29)
[2018-08-14] MEDS: Enoxaparin 40 MG/0.4 ML Syringe SC (10:29)
[2018-08-14 10:31] LABS: Bedside Glucose 206 mg/dL (70-110)
[2018-08-14] MEDS: Nystatin Ointment 1 APPLIC TOPICAL ×2 (11:03→21:50)
[2018-08-14] MEDS: Acetaminophen 325 MG Tablet 650 MG PO (12:48)
[2018-08-14 12:55] LABS: Bedside Glucose 311 mg/dL (70-110)
[2018-08-14 13:42] VITALS: BP 122/67; PULSE 86; RESP 16; TEMP 36.8; O2SAT 99
[2018-08-14 15:12] LABS: Pathologist Review Reviewed
[2018-08-14 15:14] LABS: Pathologist Review Reviewed
[2018-08-14 17:11] LABS: Bedside Glucose 306 mg/dL (70-110)
[2018-08-14 20:16] VITALS: BP 139/85; PULSE 98; RESP 18; TEMP 36.8; O2SAT 96
[2018-08-14] MEDS: Atorvastatin Calcium 10 MG Tablet PO (21:49)
[2018-08-15 03:18] VITALS: BP 125/75; PULSE 89; RESP 18; TEMP 36.9; O2SAT 96
[2018-08-15 03:41] LABS: Bedside Glucose 328 mg/dL (70-110)
[2018-08-15] MEDS: clonazePAM 0.5 MG Tablet PO ×2 (05:59→13:38)
[2018-08-15] MEDS: 0.9% NaCl Peripheral Flush Adult/Peds IV ×2 (06:07→11:21)
[2018-08-15 06:35] LABS: Anion Gap 7 (5-15); BUN 8 mg/dL (7-18); BUN/Creat Ratio 21.6 RATIO (10-20); Calcium,Total 8.1 mg/dL (8.5-10.1); Chloride 106 mmol/L (98-107); Creatinine, Serum 0.37 mg/dL (0.55-1.02); EST Glomerular Filtration Rate 220 mL/min (>60); Est Glom Filt Rate - Afr Amer 267 mL/min (>60); Estimated Creatinine Clearance 203.69 ml/min; Glucose 225 mg/dL (74-106); Magnesium 1.9 mg/dL (1.6-2.6); Phosphorus 2.4 mg/dL (2.5-4.9); Potassium 3.6 mmol/L (3.5-5.1); Sodium Level 139 mmol/L (136-145)
[2018-08-15 08:01] LABS: Bedside Glucose 209 mg/dL (70-110)
[2018-08-15] MEDS: Insulin Lispro 100 UNIT/ML INSULN.PEN 20 UNIT SC ×2 (08:38→12:15)
[2018-08-15] MEDS: Insulin Lispro 100 UNIT/ML INSULN.PEN SC ×2 (08:38→12:14)
--- NOTE | 2018-08-15 09:03 | DCINST_ITS ---
- Discharge Diagnoses Current Active Problems: Current Active and Chronic Problems DKA (diabetic ketoacidoses) (Acute) Pseudotumor cerebri (Chronic) You will use the following diet at home:: Calorie/Carbohydrate Controlled (specify 1200, 1400, etc) - 1800 Your food should be the consistency of: Regular Your liquids should be the consistency of: Regular/Thin Discharge Activity: No Restrictions Call your doctor if you observe: Fever of 101 or Higher Allergies/Adverse Reactions: Allergies ibuprofen Allergy (Verified 08/11/18 23:55) Laryngospasms ketorolac [From Toradol] Allergy (Verified 08/11/18 23:55) Hives morphine Allergy (Verified 08/11/18 23:55) Hives naproxen Allergy (Verified 08/11/18 23:55) Laryngospasms Medications to take at Discharge Clonazepam [Klonopin] 0.5 mg PO TID 10/22/16 Sertraline HCl [Zoloft] 200 mg PO DAILY 10/22/16 Methylphenidate HCl [Ritalin] 10 mg PO DAILY 12/29/16 Omeprazole [Prilosec] 10 mg PO DAILY 02/21/17 Ondansetron [Zofran Odt] 4 mg PO Q8H PRN PRN #10 tablet 07/19/17 Atorvastatin Calcium [Lipitor] 10 mg PO QHS 01/10/18 Lisinopril [Prinivil] 5 mg PO DAILY 01/10/18 Dicyclomine HCl [Bentyl] 20 mg PO ACHS 01/11/18 Metformin HCl [Glucophage] 1,000 mg PO BIDCM 01/11/18 Methylphenidate HCl [Ritalin] 20 mg PO DINNER 01/15/18 Insulin Glargine,Hum.rec.anlog [Toujeo Solostar] 45 units SUBCUT BID #0 08/15/18 Insulin Lispro [Admelog] 20 units SUBCUT TIDCM #0 08/15/18 Primary Care Physician: Alejandra Cruz PA [Primary Care Provider] - Please follow up with your Primary Care Physician in: in 3-5 days Test Results: Test results from this visit will be discussed in further detail at your follow- up appointment, if applicable. Please Follow Up With: Jossy Cota NP-C When: Monday
--- NOTE | 2018-08-15 09:05 | PCM.DC.SUM ---
Discharge Date and Diagnosis - Problem List Patient Problems: Active and Suspected Problems DKA (diabetic ketoacidoses) (Acute) Date of Admission: 08/12/18 Date of Discharge: 08/15/18 - Primary Discharge Diagnosis Active and Suspected Problems DKA (diabetic ketoacidoses) (Acute) - Secondary Discharge Diagnosis Chronic Problems DM2 (diabetes mellitus, type 2) (Chronic) Morbid obesity (Chronic) Hypertension (Chronic) Hyperlipidemia (Chronic) Depression (Chronic) Pseudotumor cerebri (Chronic) Radiation (Chronic) Uterine cancer (Chronic) Hospital Course and Treatment Imaging Results: CT Abd/Pelvis: IMPRESSION: No acute findings in the abdomen or pelvis. No findings to account for patient's symptoms. No evidence of bowel obstruction. Normal appendix. Minimal sigmoid diverticulosis. Consults: None Operations: None Procedures: None Summary of Care Provided: HPI: The patient is a 28 year old F with a PMH as above presented to the ER with nausea and vomiting and abdominal pain which all started yesterday and then diarrhea this morning. She was diagnosed with diabetes in november and has had a difficult time managing the diabetes. Per her , her BG for the last few weeks has been in the 500's at home. She has lost some weight in the last month. The history was obtained from the chart and the because she has been sleeping and has difficulty staying awake. In the ER, CT abdomen was negative for any acute process however on labs she was found to be acidotic with a gap of 18 and a glucose level of 269 and ketones. She was admitted to the ICU on an insulin drip after a Right IJ was placed. Vital Signs - 24 hr Temp Pulse Resp BP Pulse Ox 08/15/18 03:18 98.4 F 89 18 125/75 H 96 08/14/18 20:16 98.3 F 98 18 139/85 H 96 08/14/18 13:42 98.3 F 86 16 122/67 H 99 08/14/18 09:25 98.2 F 80 16 112/74 98 General: Alert, Oriented x3, Cooperative, No apparent distress HEENT: Atraumatic, EOMI, Normocephalic Oral: Moist Mucosa Neck: Supple, No JVD Lungs: Clear to auscultation, Normal air movement, No rhonchi, No wheeze, No rales Cardiovascular: Regular rate, Regular Rhythm, Normal S1, Normal S2, No murmurs Abdomen: Soft, Non Tender, Non-Distended, No Hepato-splenomegaly, Obese Extremities: No edema, Capillary Refill Less than 3 Seconds Skin: No rashes, No breakdown Psych/Mental Status: Normal Affect, Appropriate Hospital Course: 1. DKA in the setting of DM2 - She was diagnosed with DM2 last august and started on Metformin and Insulin as an outpatient. Over the last 1-2 months she noticed her BG rising and becoming out of control. She was initially seen in the ICU in DKA with a Gap of 18 and a Bicarb of 9. Both improved with insulin and fluids. She was transferred to the floor when stable and her insulin was adjusted. She was on 55 U of lantus qhs and 10 U of novolog with meals. On discharge she was on lantus 45 U BID and Novolog 20 U TID with meals. She will need to f/u with her PCP as well as endocrinology who she already has an appointment scheduled 2. Her other diagnoses were evaluated and her home medications were continued where appropriate. Patient Problems: Active and Suspected Problems DKA (diabetic ketoacidoses) (Acute) - Physical Exam Vital Signs Temp Pulse Resp BP Pulse Ox 98.4 F 89 18 125/75 H 96 08/15/18 03:18 08/15/18 03:18 08/15/18 03:18 08/15/18 03:18 08/15/18 03:18 Oxygen Delivery Method Room Air Weight: 321 lb 6.4 oz Body Mass Index (BMI) 52.0 Finger Stick Blood Glucose 220 Intake and Output for Last 24 Hours 08/13/18 08/14/18 08/15/18 23:59 23:59 23:59 Intake Total 2671 / 2671 2126 / 2126 495 / 495 Output Total 2200 / 2200 1050 / 1050 200 / 200 Balance 471 / 471 1076 / 1076 295 / 295 Laboratory Tests Past 24 Hrs 08/12/18 08/13/18 08/14/18 01:25 04:50 05:38 Diff Path Review Reviewed Reviewed Sodium Potassium Chloride Carbon Dioxide Anion Gap BUN Creatinine Estim Creat Clear Calc Est GFR (MDRD) Af Amer Est GFR (MDRD) Non-Af BUN/Creatinine Ratio Glucose Calcium Phosphorus 1.0 L* Magnesium 1.7 08/15/18 06:05 Diff Path Review Sodium 139 Potassium 3.6 Chloride 106 Carbon Dioxide 26.0 Anion Gap 7 BUN 8 Creatinine 0.37 L Estim Creat Clear Calc 203.69 Est GFR (MDRD) Af Amer 267 Est GFR (MDRD) Non-Af 220 BUN/Creatinine Ratio 21.6 H Glucose 225 H Calcium 8.1 L Phosphorus 2.4 L Magnesium 1.9 POC Glucose 08/15/18 08/14/18 08/14/18 07:52 21:33 16:55 POC Glucose 209 H 328 H 306 H 08/14/18 08/14/18 08/14/18 12:40 10:18 09:20 POC Glucose 311 H 206 H 200 H Discharge Activity: No Restrictions Call your doctor if you observe: Fever of 101 or Higher Home Medications: Medications to take at Discharge Clonazepam [Klonopin] 0.5 mg PO TID 10/22/16 Sertraline HCl [Zoloft] 200 mg PO DAILY 10/22/16 Methylphenidate HCl [Ritalin] 10 mg PO DAILY 12/29/16 Omeprazole [Prilosec] 10 mg PO DAILY 02/21/17 Ondansetron [Zofran Odt] 4 mg PO Q8H PRN PRN #10 tablet 07/19/17 Atorvastatin Calcium [Lipitor] 10 mg PO QHS 01/10/18 Lisinopril [Prinivil] 5 mg PO DAILY 01/10/18 Dicyclomine HCl [Bentyl] 20 mg PO ACHS 01/11/18 Metformin HCl [Glucophage] 1,000 mg PO BIDCM 01/11/18 Methylphenidate HCl [Ritalin] 20 mg PO DINNER 01/15/18 Insulin Glargine,Hum.rec.anlog [Toujeo Solostar] 45 units SUBCUT BID #0 08/15/18 Insulin Lispro [Admelog] 20 units SUBCUT TIDCM #0 08/15/18 Primary Care Physician: Alejandra Cruz PA [Primary Care Provider] - Please follow up with your Primary Care Physician in: in 3-5 days Please Follow Up With: Jossy Cota NP-C When: Monday Disposition: Home Minutes spent on discharge:: 35 Patient Condition:: Good Medical Necessity - Tobacco Use Smoking Status: Former smoker Meaningful Use Info Meaningful Use Diagnoses (Choose all that apply): None applicable Code Visit Inpatient E&M: 21315 Disch Hosp
[2018-08-15 09:12] VITALS: BP 127/77; PULSE 72; RESP 18; TEMP 37.1; O2SAT 95
[2018-08-15] MEDS: Pantoprazole Sodium 20 MG Tablet PO (11:02)
[2018-08-15] MEDS: Enoxaparin 40 MG/0.4 ML Syringe SC (11:02)
[2018-08-15] MEDS: Nystatin Ointment 1 APPLIC TOPICAL (11:03)
[2018-08-15] MEDS: Lisinopril 5 MG Tablet PO (11:03)
[2018-08-15] MEDS: Sertraline 100 MG Tablet 200 MG PO (11:03)
[2018-08-15 12:25] LABS: Bedside Glucose 338 mg/dL (70-110)
[2018-08-15 15:44] VITALS: BP 129/75; PULSE 70; RESP 18; TEMP 36.7; O2SAT 97
[2018-08-15 17:20] LABS: Bedside Glucose 287 mg/dL (70-110)
[2018-08-16 13:14] LABS: Pathologist Review Reviewed
--- NOTE | 2018-08-16 15:34 | CASEMGMT ---
NIKKI BROOKS Discharge follow-up phone call [facility]: 14 STRATA: 4 D/C Date: 08/15/18 Adm Dx: N/V, Abd pain NIKKI BROOKS placed call to pt to ask her how she has been doing since she left the hospital. Pt states I'm doing okay. States she does not have any questions about the discharge instructions. Has not made appt with [facility] yet but plans on calling tomorrow and states is aware of appt w/[facility] Shook as well. Pt states that while @ [facility], the nurse applied tape although she had told her she is allergic to it. Pt reports she used the blue tape. Pt states she used the call light to tell her nurse it was still bothering her and that the nurse came back in and took off the old piece and applied a new piece of the same kind. Pt reports that since she has returned home, that the area got reddened and blistered, stating she has been applying Neosporin to it and that it is improving. Instructed pt to alert staff of tape allergy when they are reviewing her allergy list. Pt states the paper tape usually does not affect her as much. Instructed pt to ask for paper tape to be used on any further admissions. Pt states, other than that, I received really good care and I wouldn't recommend anything else. NIKKI BROOKS thanked pt for taking the time to answer questions and thanked her for using [facility]. Precious LEWIS RN, CM
== END 2018-08-15 17:23 | disposition home or self-care (01) | DRG 420 ==
LOC: ED 08-12 07:44 → ICU 08-12 07:54 → MS2 08-13 14:57
PROVIDERS: Admitting Provider Family Medicine; Emergency Provider Emergency Medicine; Family Provider Physician Assistant; PCP Physician Assistant; Visit Provider Family Medicine
DX: E11.10 Type 2 diabetes mellitus with ketoacidosis without coma (principal); G93.2 Benign intracranial hypertension; E66.01 Morbid (severe) obesity due to excess calories; Z68.43 Body mass index [BMI] 50.0-59.9, adult; Z79.4 Long term (current) use of insulin; Z90.710 Acquired absence of both cervix and uterus; E78.5 Hyperlipidemia, unspecified; Z85.42 Personal history of malignant neoplasm of other parts of uterus; I10 Essential (primary) hypertension; F32.9 Major depressive disorder, single episode, unspecified; K21.9 Gastro-esophageal reflux disease without esophagitis; Z87.891 Personal history of nicotine dependence
CPT/HCPCS: 36415; 36556; 71045; 74177; 80048; 80053; 81001; 81025; 82009; 82803; 82962; 83036; 83690; 83735; 84100; 85025; 97802; 99285; 99406; J7030; J7040; J7050; Q9967; A4216; C1751; J2405

== ENCOUNTER 2019-08-06 20:46 | Emergency (ER) | payer MEDICAID, SELFPAY ==
[2018-09-11 11:26] VITALS: BMI 51.7
[2019-08-06 20:47] VITALS: BP 172/98; PULSE 125; RESP 16; TEMP 37.6; O2SAT 97; BMI 47.7
--- NOTE | 2019-08-06 21:42 | CT_ITS ---
STUDY: CT ABDOMEN AND PELVIS WITH CONTRAST REASON FOR EXAM: Female, 29 years old. Right upper quadrant pain. RADIATION DOSAGE (If Supplied By Facility): CTDIvol = ( 25.39 ) mGy, DLP = ( 1306.00 ) mGycm TECHNIQUE: Transaxial images were obtained from the dome of the diaphragm to the symphysis pubis without oral contrast. IV 100mL Isovue-300 100ML was administered. Sagittal and coronal images were reconstructed. Individualized dose optimization techniques were used for this CT. COMPARISON: August 12, 2018 FINDINGS: The visualized lung bases are unremarkable. The visualized portions of the heart are within normal limits. Normal liver. There are surgical clips in the gallbladder fossa consistent with a prior cholecystectomy. There are splenic granulomas present. Normal pancreas. Normal bilateral adrenal glands. Normal right kidney. Normal left kidney. Normal visualized stomach. Normal small intestine. There are scattered diverticula arising from the colon. There is non-visualization of the appendix. Normal abdominal aorta. Normal inferior vena cava. Normal retroperitoneum. Normal urinary bladder. There is absence of the uterus consistent with a prior hysterectomy. There is a 9 mm lymph node within the mesorectal fat right of midline (image 107 series 2) that has slightly increased in size since the prior examination previously measuring 7 mm. Normal abdominal wall. There are diffuse degenerative changes of the visualized lumbar spine. CT/Abdomen/Pelvis W IV Cont ONLY IMPRESSION: No acute intra-abdominal process. Interval enlargement of borderline enlarged mesorectal lymph node. Colonic diverticulosis. Electronically Signed: Yaima Clayton MD at 23:01 EDT Tel , Service support ,
[2019-08-06 21:49] LABS: Absolute Lymphocyte Count 2.37 X10^3/uL (0.83-4.51); Absolute Neutrophil Count 6.6 X10^3/uL (2.0-7.7); Basophil# 0.04 X10^3/uL; Basophil% 0.4 % (0-1); Eosinophil# 0.07 X10^3/uL; Eosinophils% 0.7 % (0-5); Hematocrit 43.5 % (37-47); Hemoglobin 14.4 g/dL (12.0-15.0); Lymphocyte # 2.37 X10^3/ul (4.0); Lymphocyte % 24.7 % (19-41); Mean Corp Hgb Conc 33.1 g/dL (32-36); Mean Corpuscular Hgb 30.2 pg (27.0-32.0); Mean Corpuscular Volume 91.2 fL (81-99); Mean Platelet Vol. 10.6 fl (6.2-12.0); Monocyte# 0.48 X10^3/uL; NRBC Flagged by Analyzer 0 % (0-5); Neutrophil % 68.9 % (47-70); Platelet Count 234 K/mm3 (150-450); RBC Distribution Width CV 12.1 % (11.6-14.6); RBC Distribution Width SD 40.9 fl (35.1-43.9); Red Blood Count 4.77 M/mm3 (4.2-5.4); White Blood Count 9.6 K/mm3 (4.4-11.0)
[2019-08-06] MEDS: Ondansetron 4 MG/2 ML Vial IV ×2 (22:06→23:30)
[2019-08-06] MEDS: 0.9% Normal Saline 1,000 ML 1000 ML IV (22:06)
[2019-08-06] MEDS: HYDROmorphone 1 MG/ML Syringe 0.5 MG IV (22:06)
[2019-08-06 22:20] LABS: AST(SGOT) 23 U/L (15-37); Alanine Aminotransfer ALT/SGPT 26 U/L (13-56); Albumin, Serum 3.7 g/dL (3.2-5.0); Alkaline Phosphatase 98 U/L (45-117); Anion Gap 8 (5-15); BUN 12 mg/dL (7-18); BUN/Creat Ratio 18.8 RATIO (10-20); Bilirubin, Direct 0.12 mg/dL (0.00-0.30); Calcium,Total 9.3 mg/dL (8.5-10.1); Chloride 105 mmol/L (98-107); Creatinine, Serum 0.64 mg/dL (0.55-1.02); EST Glomerular Filtration Rate 117 mL/min (>60); Est Glom Filt Rate - Afr Amer 141 mL/min (>60); Estimated Creatinine Clearance 116.71 ml/min; Glucose 231 mg/dL (74-106); Lipase 31 U/L (73-393); Potassium 4.3 mmol/L (3.5-5.1); Protein, Total 7.7 g/dL (6.4-8.2); Sodium Level 140 mmol/L (136-145)
--- NOTE | 2019-08-06 22:22 | ED.VIS.GEN ---
History of Present Illness Chief Complaint: Abd Pain Informant: Patient Onset: Today Context: Sudden Onset Timing: Continuous Current Severity: Severe Maximum Severity: Severe Narrative: Patient is evaluated for sudden onset of right upper quadrant abdominal pain. Patient states she suddenly developed pain in her right upper quadrant. It worsened quickly. She describes it as sharp and constant. She has had associated nausea and vomiting. She states she started up so much that nothing else is coming up. She had normal bowel habits. She notes that she had cholecystitis with subsequent cholecystectomy years ago and this is what it feels like. She denies any urinary symptoms. She denies any chest pain or shortness of breath. She denies any fever or chills. She denies any other complaints at this time. Patient states that she has had a hysterectomy secondary to uterine cancer and is waiting to have lymph node biopsy surgery still. She notes that she lives in [place] and is not local anymore. Past Medical History - Allergies and Home Meds Allergies/Adverse Reactions: Allergies ibuprofen Allergy (Verified 08/06/19 20:47) Laryngospasms ketorolac [From Toradol] Allergy (Verified 08/06/19 20:47) Hives morphine Allergy (Verified 08/06/19 20:47) Hives naproxen Allergy (Verified 08/06/19 20:47) Laryngospasms Primary Care Physician: Care Physician,No Primary [Primary Care Provider] - Past Medical History: - - Diabetes, endometrial cancer Surgical History: cholecystectomy, herniorrhaphy, hysterectomy, - - hysteroscopy, ovarian moving Smoking Status: Former smoker - Family History Maternal Family History: Family History (Last Updated 09/11/18 @ 11:08 by Fior Fu) Other Autoimmune disease Diabetes Hypertension Kidney disease Liver disease Thyroid disorder Family History: Reports: - - uterine cancer, thyroid diabetes Paternal Family History: Family History (Last Updated 09/11/18 @ 11:08 by Fior Fu) Other Autoimmune disease Diabetes Hypertension Kidney disease Liver disease Thyroid disorder Family History: Reports: - - not sure Review of Systems Gastrointestinal: Reports: Abdominal pain, Nausea, Vomiting Physical Exam Vital Signs/Narrative: Vital Signs Temp Pulse Resp BP Pulse Ox 08/06/19 20:47 99.7 F H 125 H 16 172/98 H 97 General: Well nourished, Well developed, Obese, No Acute Distress Head: Normocephalic, Atraumatic Eyes: Perrl, EOMI ENT: Moist mucous membranes, No rhinorrhea Neck: Supple, Nontender Cardiovascular: Regular rate, Regular rhythm, No murmurs Respiratory: No distress, CTA bilaterally, Chest nontender Abdomen: Soft, Nondistended, Normal bowel sounds, Tender - RUQ. Negative for: Guarding, Rebound tenderness, Colmenares's sign Back: Nontender, Normal Inspection Extremities: Nontender, No edema Skin: Normal color, No rash Neurological: Alert, Oriented x3, Cranial nerves II-XII grossly intact, Normal Strength, Normal Sensation Psychological: Normal affect, Normal Mood Diagnostic/Tx/Re-eval Clinical Impression(s) from Imaging Studies Abdomen/Pelvis CT 08/06/19 21:42 IMPRESSION: No acute intra-abdominal process. Interval enlargement of borderline enlarged mesorectal lymph node. Colonic diverticulosis. Electronically Signed: Yaima Clayton MD at 23:01 EDT Tel , Service support , Laboratory Data 08/06/19 08/06/19 08/06/19 21:15 21:15 22:50 WBC 9.6 RBC 4.77 Hgb 14.4 Hct 43.5 MCV 91.2 MCH 30.2 MCHC 33.1 RDW Std Deviation 40.9 RDW Coeff of Theron 12.1 Plt Count 234 MPV 10.6 Immature Gran % (Auto) 0.300 Neut % (Auto) 68.9 Lymph % (Auto) 24.7 Dyer % (Auto) 5.0 Eos % (Auto) 0.7 Baso % (Auto) 0.4 Absolute Neuts (auto) 6.6 Absolute Lymphs (auto) 2.37 Nucleated RBC % 0 Sodium 140 Potassium 4.3 Chloride 105 Carbon Dioxide 27.0 Anion Gap 8 BUN 12 Creatinine 0.64 Estim Creat Clear Calc 116.71 Est GFR (MDRD) Af Amer 141 Est GFR (MDRD) Non-Af 117 BUN/Creatinine Ratio 18.8 Glucose 231 H Calcium 9.3 Total Bilirubin 0.70 Direct Bilirubin 0.12 AST 23 ALT 26 Alkaline Phosphatase 98 Total Protein 7.7 Albumin 3.7 Globulin 4.0 Lipase 31 L Urine Color Yellow Urine Clarity Clear Urine pH 7.0 Ur Specific Mcdougal 1.015 Urine Protein 30 H Urine Glucose (UA) 100 H Urine Ketones 5 H Urine Occult Blood 150 H Urine Nitrite Negative Urine Bilirubin Negative Urine Urobilinogen Normal Ur Leukocyte Esterase Negative Urine RBC 0-5 SEEN Urine WBC 0-5 SEEN Ur Squamous Epith Cells 0-5 SEEN Urine Bacteria 1+ Urine Mucus 0 SEEN - Medical Decision Making She is evaluated for worsening right upper quadrant abdominal pain. She appears nontoxic but in mild distress secondary to pain. Vital signs are significant for hypertension and tachycardia but I believe this is secondary to pain. Patient is given IV fluids, Zofran and Dilaudid she is allergic to morphine. Patient did have improvement of her symptoms with this. She does require re-dose with Zofran. CBC and CMP are largely unremarkable. She does not have an elevated bili or alkaline phosphatase and I do not suspect choledocholithiasis. CT of her abdomen pelvis is negative for acute process such as obstruction, pyelonephritis or hydronephrosis. Patient does have an enlarged mesenteric lymph node that she is informed of. Patient states she is waiting on a biopsy for enlarged lymph nodes already. Patient is counseled on signs and symptoms requiring return to the emergency room. Patient verbalizes agreement and understand this plan. Patient discharged home in stable and improved condition. ED Disposition - Plan for ED Patient: Disposition: Home or Assisted Living Diagnosis: Abdominal pain Instructions: ABDOMINAL PAIN, Unknown Cause, (Female) Prescriptions: Ondansetron [Zofran Odt] 4 mg PO Q8H PRN PRN #12 tab PRN Reason: Nausea Prescription Printed Referrals: Care Physician,No Primary [Primary Care Provider] - Additional Instructions: Please follow-up with your primary care doctor for further evaluation of this abdominal pain. The exact cause is not found today. Drink plenty of fluids. Make sure you follow-up for the enlarged lymph node as well. Return the emergency room if you have worsening symptoms.
[2019-08-06] MEDS: DiphenhydrAMINE 50 MG/ML Syringe IV (23:01)
[2019-08-06 23:07] LABS: Mucous, Urine 0 SEEN /hpf (<or=2+)
[2019-08-06 23:14] LABS: Color, Urine Yellow (Yellow); Glucose, Dipstick 100 mg/dl (Normal); Ketone-Dipstick 5 mg/dl (Negative); Leukocyte Esterase-Dipstick Negative /ul (Negative); Nitrite-Dipstick Negative (Negative); Occult Blood-Urine 150 /ul (Negative); Protein-Dipstick 30 mg/dl (Negative); Specific Gravity, Urine 1.015 (1.002-1.030); Urine Bilirubin Dipstick Negative (Negative); Urine Clarity Clear (Clear); Urine Urobilinogen Normal (Normal)
[2019-08-06 23:20] LABS: Bacteria 1+ /hpf (None Seen); Red Blood Cells-Urine 0-5 SEEN /hpf (0-5); Squamous Epithelial Cells - UA 0-5 SEEN /hpf (5-10); White Blood Cells 0-5 SEEN /hpf (0-5)
[2019-08-07 00:02] VITALS: BP 107/67; PULSE 74; RESP 15; O2SAT 96
--- NOTE | 2019-08-07 00:03 | ED.RN ---
PT GIVEN WRITTEN AND VERBAL DISCHARGE INSTRUCTIONS AND HOME GOING PRESCRIPTIONS. PT VERBALIZES UNDERSTANDING AND REQUESTS SCRIPTS TO BE FILLED BY PHARMACY. PT EDUCATED NOT TO DRIVE AFTER HAVING NARCOTIC MEDICATION. PT VERBALIZES UNDERSTANDING OF INSTRUCTIONS AND REPORTS THAT HER BROTHER IN LAW IS COMING TO GET HER. PT IV D/C AND COVERED WITH 2X2 GAUZE AND PAPER TAPE. PT DRESSES AND AMBULATES TO [facility].
== END 2019-08-07 00:05 | disposition home or self-care (01) ==
PROVIDERS: Emergency Provider Emergency Medicine
DX: R10.11 Right upper quadrant pain (principal); R11.2 Nausea with vomiting, unspecified; R59.0 Localized enlarged lymph nodes; E66.9 Obesity, unspecified; E11.9 Type 2 diabetes mellitus without complications; K57.30 Diverticulosis of large intestine without perforation or abscess without bleeding; Z87.19 Personal history of other diseases of the digestive system; Z85.42 Personal history of malignant neoplasm of other parts of uterus; Z90.49 Acquired absence of other specified parts of digestive tract; Z90.710 Acquired absence of both cervix and uterus; Z79.4 Long term (current) use of insulin; Z79.84 Long term (current) use of oral hypoglycemic drugs; Z79.899 Other long term (current) drug therapy; Z87.891 Personal history of nicotine dependence
CPT/HCPCS: 74177; 80048; 80076; 81001; 83690; 85025; 96361; 96374; 96375; 96376; 99283; J7030; Q9967; A4216; J2405

== ENCOUNTER 2022-02-19 14:19 | Emergency (ER) | payer MEDICAID, SELFPAY ==
[2022-02-19 14:20] VITALS: BP 147/90; PULSE 85; RESP 14; TEMP 36.9; O2SAT 97; BMI 42.5
[2022-02-19 14:26] LABS: Bedside Glucose > 500 mg/dL (74-106)
--- NOTE | 2022-02-19 14:34 | EDS_ITS ---
HPI <KIMBERLY Gilmore - Last Filed: 02/19/22 18:28> History of Present Illness Chief Complaint: Hyperglycemia Narrative Narrative: 31-year-old female with PMH of HTN, HLD, DM2 presents with hyperglycemia. Over the last few days she has had blood sugars in the 500s. She reports taking insulin prior to each meal and long-acting but does not know the names. For her meal bolus she takes 10+ a sliding scale and at night takes 32 units of the long-acting insulin. She has been compliant with this. She follows with a endocrinology office in [place]. Over the last few days she reports suprapubic pain, chills, nausea and vomiting and dysuria and is concerned she had a UTI. She does report having DKA multiple times in the past. No recent fever. PFSH <KIMBERLY Gilmore - Last Filed: 02/19/22 18:28> [facility] Medical History (Updated 02/19/22 @ 17:33 by KIMBERLY Gilmore) Anemia Bone fracture Cancer Diabetes Environmental allergies Gallstones History of blood transfusion Kidney stones Liver disease Migraines Home Medications clonazepam 0.5 mg PO TID 10/22/16 [History Last Taken 08/10/18] omeprazole 10 mg PO DAILY 02/21/17 [History Last Taken 08/10/18 10 mg] lamotrigine 100 mg PO DAILY 08/06/19 [History Last Taken Unknown] ondansetron 4 mg PO Q8H PRN PRN #12 tab 08/06/19 [Rx Last Taken Unknown] fluoxetine 40 mg PO DAILY 02/19/22 [History Last Taken Unknown] insulin glargine U-300 conc 32 units SC BID 02/19/22 [History Last Taken Unknown] insulin lispro [Humalog U-100 Insulin] 10 units SC TIDCM 02/19/22 [History Last Taken Unknown] lisdexamfetamine [Vyvanse] 70 mg PO DAILY 02/19/22 [History Last Taken Unknown] ondansetron 4 mg PO Q8H PRN PRN #10 tab 02/19/22 [Rx Last Taken Unknown] Allergy/AdvReac Type Severity Reaction Status Date / Time acetazolamide Allergy Hives Verified 02/19/22 14:27 [From Diamox Sequels] ibuprofen Allergy Laryngospas Verified 02/19/22 14:27 ms ketorolac [From Toradol] Allergy Hives Verified 02/19/22 17:00 naproxen Allergy Laryngospas Verified 02/19/22 17:00 ms Family History (Updated 09/11/18 @ 11:08 by Fior Fu) Other Autoimmune disease Diabetes Hypertension Kidney disease Liver disease Thyroid disorder Surgical History H/O: hysterectomy History of tonsillectomy Hx of cholecystectomy Hx of hernia repair S/P foot surgery, left Social History (Updated 09/16/18 @ 13:18 by Jossy Cota NP, INFORMATION STRATEGIST-C) Smoking Status: Former smoker ROS <KIMBERLY Gilmore - Last Filed: 02/19/22 18:28> ROS ED ROS Narrative Constitutional: Positive for chills. Negative for fever, malaise. Eyes: Negative for visual change. ENT: Negative for sore throat, ear pain, rhinorrhea. CVS: Negative for palpitations, chest pain, syncope. Respiratory: Negative for shortness of breath, cough, orthopnea. GI: Positive for nausea, vomiting. Negative for abdominal pain, diarrhea, constipation, melena, hematochezia. : Positive for dysuria. Negative for hematuria or frequency. Neuro: Negative for headache, motor/sensory dysfunction. Skin: Negative for rash, abscess, or wound. Musc: Negative for joint pain, swelling, trauma. Heme: Negative for easy bruising, bleeding, lymphadenopathy. EXAM <KIMBERLY Gilmore - Last Filed: 02/19/22 18:28> Physical Exam Narrative Exam Narrative: CONST: Patient sitting in no acute distress. EYES: Normal inspection. ENT: Normal inspection, dry mucous membranes. NECK: Normal inspection. RESP: No respiratory distress, CTAB. CVS: Regular rate and rhythm, no murmur, no gallop. ABD: Soft with slight left mid abdominal tenderness, no guarding or rebound, nondistended. Back: Normal inspection, no CVA tenderness. SKIN: Color normal, no rash, warm, dry, intact. EXTREMITIES: Normal appearance, no pedal edema. NEURO: Oriented x4. PSYCH: Normal affect. Const Vital Signs: 02/19/22 14:20 02/19/22 18:12 Temperature 98.5 F Temperature Source Temporal Pulse Rate 85 Respiratory Rate 14 Blood Pressure 147/90 H 134/77 H Blood Pressure Mean 109 Pulse Ox 97 Oxygen Delivery Method Room Air <Dr. Tomas Mcmullen MD - Last Filed: 02/19/22 15:30> Physical Exam Const Vital Signs: 02/19/22 14:20 02/19/22 18:12 Temperature 98.5 F Temperature Source Temporal Pulse Rate 85 Respiratory Rate 14 Blood Pressure 147/90 H 134/77 H Blood Pressure Mean 109 Pulse Ox 97 Oxygen Delivery Method Room Air MDM <KIMBERLY Gilmore - Last Filed: 02/19/22 18:28> [facility] MDM Narrative Medical decision making narrative: Patient with history of type 2 diabetes presents with hyperglycemia. She appears well and nontoxic. Afebrile vital signs within normal limits. She has moist mucous membranes. Heart is regular. Lungs clear. Abdomen soft with some suprapubic tenderness but no peritoneal signs. No CVA tenderness. Fingerstick glucose was above 580. Patient will be treated with IV fluids. She said she had taken 25 units of her short acting insulin around 1300 but since this is not significantly brought it down I will give an additional lispro 10 units. Family also relays she has poor medication compliance. CBC is within normal limits, BMP shows sodium 134, glucose 527, anion gap 13. UA has RBCs but no infection. With her abdominal/intermittent flank pain and hematuria a CT scan was obtained and shows no obstructive uropathy or any other acute process. After 2 L IV fluids, morphine, Zofran, patient is feeling improved. She is tolerating p.o. intake. She has a blood sugar trending down to just above 300 so at this time does not require admission. We discussed importance of insulin compliance and hydration. She should call her program production specialist Monday and was discharged in stable condition. Diagnoses 1. Diabetic hyperglycemia 2. Medication noncompliance 3. Nausea and vomiting 4. Abdominal pain 5. Hematuria Lab Data Labs: Laboratory Results - last 24 hr 02/19/22 02/19/22 02/19/22 14:23 14:40 14:40 WBC 8.6 RBC 4.24 Hgb 13.3 Hct 40.6 MCV 95.8 MCH 31.4 MCHC 32.8 RDW Std Deviation 46.0 H RDW Coeff of Theron 13.1 Plt Count 224 MPV 10.2 Immature Gran % (Auto) 0.300 Neut % (Auto) 84.2 H Lymph % (Auto) 11.1 L [place] % (Auto) 4.1 Eos % (Auto) 0.1 Baso % (Auto) 0.2 Absolute Neuts (auto) 7.3 Absolute Lymphs (auto) 0.96 Nucleated RBC % 0 Sodium 134 L Potassium 4.3 Chloride 98 Carbon Dioxide 23.0 Anion Gap 13 BUN 12 Creatinine 0.84 Estim Creat Clear Calc 87.32 Est GFR (MDRD) Af Amer 102 Est GFR (MDRD) Non-Af 84 BUN/Creatinine Ratio 14.4 Glucose 527 H* Calcium 9.1 Urine Color Urine Clarity Urine pH Ur Specific [place] Urine Protein Urine Glucose (UA) Urine Ketones Urine Occult Blood Urine Nitrite Urine Bilirubin Urine Urobilinogen Ur Leukocyte Esterase Urine RBC Urine WBC Ur Squamous Epith Cells Urine Bacteria Urine Mucus Acetone Level POC Glucose > 500 H* 02/19/22 02/19/22 02/19/22 14:40 14:50 16:19 WBC RBC Hgb Hct MCV MCH MCHC RDW Std Deviation RDW Coeff of Theron Plt Count MPV Immature Gran % (Auto) Neut % (Auto) Lymph % (Auto) [place] % (Auto) Eos % (Auto) Baso % (Auto) Absolute Neuts (auto) Absolute Lymphs (auto) Nucleated RBC % Sodium Potassium Chloride Carbon Dioxide Anion Gap BUN Creatinine Estim Creat Clear Calc Est GFR (MDRD) Af Amer Est GFR (MDRD) Non-Af BUN/Creatinine Ratio Glucose Calcium Urine Color Yellow Urine Clarity Clear Urine pH 6.0 Ur Specific [place] 1.020 Urine Protein Negative Urine Glucose (UA) 1000 H Urine Ketones 50 H Urine Occult Blood 250 H Urine Nitrite Negative Urine Bilirubin Negative Urine Urobilinogen Normal Ur Leukocyte Esterase 25 H Urine RBC 25-50 SEEN Urine WBC 0-5 SEEN Ur Squamous Epith Cells 0-5 SEEN Urine Bacteria RARE Urine Mucus 0 SEEN Acetone Level NEGATIVE POC Glucose 332 H Radiography Diagnostic Testing: Clinical Impression(s) from Imaging Studies Abdomen/Pelvis CT 02/19/22 15:48 IMPRESSION: No renal or ureteral stone. Status post cholecystectomy with fatty infiltration of the liver. Electronically Signed: Bin Quinteros MD at 16:25 EDT , <Dr. Tomas Mcmullen MD - Last Filed: 02/19/22 15:30> [facility] Narrative Medical decision making narrative: History: Patient states that for about 4 days she has had some dysuria and frequency. She developed pain in her left flank area. She is now had nausea vomiting for couple of days. Her sugars have been running high again at 500. She is taking her insulin. She states she has had DKA multiple times. She is also had multiple abdominal surgeries although none recently. No fevers. No chest pain or trouble breathing. Physical exam shows patient to be awake alert and appropriate. Clinically she looks very dehydrated with quite dry mouth. Heart is not tachycardic. Abdominal exam is quite variable. She will have some diffuse tenderness that seems more on the left than right. No rebound or guarding. However, other times when I am talking to her she does not seem to have tenderness. Quite variable results with CVA palpation. Patient will have IV fluids, slightly more insulin than she took at home recently, blood work will be done. Urinalysis will be done. Her history is most consistent with UTI and left-sided Pyelo. However, if her urine does not show any marked abnormalities we may do imaging as she has had multiple abdominal surgeries and is having pain. Lab Data Attestation: I reviewed the patient's lab results. Labs: Laboratory Results - last 24 hr 02/19/22 02/19/22 02/19/22 14:23 14:40 14:40 WBC 8.6 RBC 4.24 Hgb 13.3 Hct 40.6 MCV 95.8 MCH 31.4 MCHC 32.8 RDW Std Deviation 46.0 H RDW Coeff of Theron 13.1 Plt Count 224 MPV 10.2 Immature Gran % (Auto) 0.300 Neut % (Auto) 84.2 H Lymph % (Auto) 11.1 L [place] % (Auto) 4.1 Eos % (Auto) 0.1 Baso % (Auto) 0.2 Absolute Neuts (auto) 7.3 Absolute Lymphs (auto) 0.96 Nucleated RBC % 0 Sodium 134 L Potassium 4.3 Chloride 98 Carbon Dioxide 23.0 Anion Gap 13 BUN 12 Creatinine 0.84 Estim Creat Clear Calc 87.32 Est GFR (MDRD) Af Amer 102 Est GFR (MDRD) Non-Af 84 BUN/Creatinine Ratio 14.4 Glucose 527 H* Calcium 9.1 Urine Color Urine Clarity Urine pH Ur Specific [place] Urine Protein Urine Glucose (UA) Urine Ketones Urine Occult Blood Urine Nitrite Urine Bilirubin Urine Urobilinogen Ur Leukocyte Esterase Urine RBC Urine WBC Ur Squamous Epith Cells Urine Bacteria Urine Mucus Acetone Level POC Glucose > 500 H* 02/19/22 02/19/22 02/19/22 14:40 14:50 16:19 WBC RBC Hgb Hct MCV MCH MCHC RDW Std Deviation RDW Coeff of Theron Plt Count MPV Immature Gran % (Auto) Neut % (Auto) Lymph % (Auto) [place] % (Auto) Eos % (Auto) Baso % (Auto) Absolute Neuts (auto) Absolute Lymphs (auto) Nucleated RBC % Sodium Potassium Chloride Carbon Dioxide Anion Gap BUN Creatinine Estim Creat Clear Calc Est GFR (MDRD) Af Amer Est GFR (MDRD) Non-Af BUN/Creatinine Ratio Glucose Calcium Urine Color Yellow Urine Clarity Clear Urine pH 6.0 Ur Specific [place] 1.020 Urine Protein Negative Urine Glucose (UA) 1000 H Urine Ketones 50 H Urine Occult Blood 250 H Urine Nitrite Negative Urine Bilirubin Negative Urine Urobilinogen Normal Ur Leukocyte Esterase 25 H Urine RBC 25-50 SEEN Urine WBC 0-5 SEEN Ur Squamous Epith Cells 0-5 SEEN Urine Bacteria RARE Urine Mucus 0 SEEN Acetone Level NEGATIVE POC Glucose 332 H Radiography Diagnostic Testing: Clinical Impression(s) from Imaging Studies Abdomen/Pelvis CT 02/19/22 15:48 IMPRESSION: No renal or ureteral stone. Status post cholecystectomy with fatty infiltration of the liver. Electronically Signed: Bin Quinteros MD at 16:25 EDT , Discharge Plan Triage Chief Complaint: Hyperglycemia ED Provider: Carla Owens Dx/Rx/DC Orders Clinical Impression: Diabetes mellitus with hyperglycemia, Abdominal pain Instructions: Abdominal Pain, ED Diabetic Hyperglycemia Prescriptions: New ondansetron 4 mg tablet,disintegrating 4 mg PO Q8H PRN PRN (Reason: Nausea) Qty: 10 RF: 0 No Action clonazepam 0.5 MG tablet 0.5 mg PO TID RF: 0 omeprazole 10 MG capsule 10 mg PO DAILY RF: 0 lamotrigine 100 MG tablet 100 mg PO DAILY RF: 0 ondansetron 4 MG tablet 4 mg PO Q8H PRN PRN (Reason: Nausea) Qty: 12 RF: 0 insulin lispro [Humalog U-100 Insulin] 100 UNIT/ML solution 10 units SC TIDCM RF: 0 insulin glargine U-300 conc 300 UNIT/ML insulin pen 32 units SC BID RF: 0 fluoxetine 40 mg capsule 40 mg PO DAILY RF: 0 Vyvanse 70 mg capsule 70 mg PO DAILY RF: 0 Primary Care Provider: Care Physician,No Primary Referrals: Care Physician,No Primary [Primary Care Provider] - Activity Restrictions/Additional Instructions: Today your blood sugars were high but you are not in DKA. You need to drink plenty of fluid and you need to take your insulin as prescribed. Please call your program production specialist on Monday for follow-up. Disposition Disposition: Home, Self Care Discharge Date/Time: 02/19/22 18:13
[2022-02-19 14:43] LABS: Absolute Lymphocyte Count 0.96 X10^3/uL (0.83-4.51); Absolute Neutrophil Count 7.3 X10^3/uL (2.0-7.7); Basophil# 0.02 X10^3/uL; Basophil% 0.2 % (0-1); Eosinophil# 0.01 X10^3/uL; Eosinophils% 0.1 % (0-5); Hematocrit 40.6 % (37-47); Hemoglobin 13.3 g/dL (12.0-15.0); Lymphocyte # 0.96 X10^3/ul (0.83-4.51); Lymphocyte % 11.1 % (19-41); Mean Corp Hgb Conc 32.8 g/dL (32-36); Mean Corpuscular Hgb 31.4 pg (27.0-32.0); Mean Corpuscular Volume 95.8 fL (81-99); Mean Platelet Vol. 10.2 fl (6.2-12.0); Monocyte# 0.35 X10^3/uL; Monocyte% 4.1 % (0-10); NRBC Flagged by Analyzer 0 % (0-5); Neutrophil # 7.26 X10^3/uL (2.7-7.7); Neutrophil % 84.2 % (47-70); Platelet Count 224 K/mm3 (150-450); RBC Distribution Width CV 13.1 % (11.6-14.6); Red Blood Count 4.24 M/mm3 (4.2-5.4); White Blood Count 8.6 K/mm3 (4.4-11.0)
[2022-02-19 14:58] LABS: Mucous, Urine 0 SEEN /hpf (<or=2+)
[2022-02-19 15:03] LABS: Anion Gap 13 (5-15); BUN 12 mg/dL (7-18); BUN/Creat Ratio 14.4 RATIO (10-20); Calcium,Total 9.1 mg/dL (8.5-10.1); Chloride 98 mmol/L (98-107); Creatinine, Serum 0.84 mg/dL (0.55-1.02); EST Glomerular Filtration Rate 84 mL/min (>60); Est Glom Filt Rate - Afr Amer 102 mL/min (>60); Estimated Creatinine Clearance 87.32 ml/min; Glucose 527 mg/dL (74-106); Potassium 4.3 mmol/L (3.5-5.1); Sodium Level 134 mmol/L (136-145)
[2022-02-19] MEDS: Ondansetron 4 MG/2 ML Vial IV ×2 (15:03→16:54)
[2022-02-19] MEDS: 0.9% Normal Saline 1,000 ML 999 ML IV ×2 (15:04)
[2022-02-19 15:09] LABS: Color, Urine Yellow (Yellow); Glucose, Dipstick 1000 mg/dl (Normal); Ketone-Dipstick 50 mg/dl (Negative); Leukocyte Esterase-Dipstick 25 /ul (Negative); Nitrite-Dipstick Negative (Negative); Occult Blood-Urine 250 /ul (Negative); Protein-Dipstick Negative (Negative); Urine Bilirubin Dipstick Negative (Negative); Urine Clarity Clear (Clear); Urine Urobilinogen Normal (Normal)
[2022-02-19 15:29] LABS: White Blood Cells 0-5 SEEN /hpf (0-5)
[2022-02-19 15:30] LABS: Bacteria RARE /hpf (None Seen); Red Blood Cells-Urine 25-50 SEEN /hpf (0-5); Squamous Epithelial Cells - UA 0-5 SEEN /hpf (5-10)
--- NOTE | 2022-02-19 15:48 | CT_ITS ---
STUDY: CT ABDOMEN AND PELVIS WITHOUT CONTRAST REASON FOR EXAM: Female, 31 years old. left flank pain RADIATION DOSAGE (If Supplied By Facility): CTDIvol = ( 20.35 ) mGy, DLP = ( 1057.28 ) mGycm TECHNIQUE: Transaxial images were obtained from the dome of the diaphragm to the symphysis pubis without oral contrast, and without intravenous contrast. Sagittal and coronal images were reconstructed. Individualized dose optimization techniques were used for this CT. COMPARISON: 08/06/2019 FINDINGS: The visualized lung bases are unremarkable. The visualized portions of the heart are within normal limits. There is decreased attenuation of the liver consistent with steatosis. There are surgical clips in the gallbladder fossa consistent with a prior cholecystectomy. Normal spleen. Normal pancreas. Normal bilateral adrenal glands. Normal right kidney. Normal left kidney. Normal visualized stomach. Normal small intestine. Normal colon. The appendix is visualized and appears normal. Normal abdominal aorta. Normal inferior vena cava. Normal retroperitoneum. Normal urinary bladder. Normal abdominal wall. Normal osseous structures. CT/Abdomen/Pelvis without Cont IMPRESSION: No renal or ureteral stone. Status post cholecystectomy with fatty infiltration of the liver. Electronically Signed: Bin Quinteros MD at 16:25 EDT ,
[2022-02-19 16:26] LABS: Bedside Glucose 332 mg/dL (74-106)
[2022-02-19] MEDS: DiphenhydrAMINE 50 MG/ML Syringe 25 MG IV (17:12)
[2022-02-19] MEDS: Morphine 4 MG/ML Syringe IV (17:12)
[2022-02-19 18:12] VITALS: BP 134/77
== END 2022-02-19 18:13 | disposition home or self-care (01) ==
PROVIDERS: Emergency Provider Physician Assistant; Visit Provider Physician Assistant
DX: E11.65 Type 2 diabetes mellitus with hyperglycemia (principal); Z79.4 Long term (current) use of insulin; I10 Essential (primary) hypertension; Z87.891 Personal history of nicotine dependence; Z91.14 Patient's other noncompliance with medication regimen; E78.5 Hyperlipidemia, unspecified; Z87.442 Personal history of urinary calculi; Z87.19 Personal history of other diseases of the digestive system; G43.909 Migraine, unspecified, not intractable, without status migrainosus; Z79.899 Other long term (current) drug therapy; R31.9 Hematuria, unspecified
CPT/HCPCS: 74176; 80048; 81001; 82009; 82962; 85025; 87086; 87088; 96361; 96374; 96375; 96376; 99284; J7030; A4216; J2405

== ENCOUNTER 2022-03-01 18:57 | Observation (INO) | payer MEDICAID, SELFPAY ==
[2022-03-01] VITALS (7 sets, daily range): BP systolic 111–143; BP diastolic 72–79; PULSE 47–85; RESP 13–25; TEMP 36–37.1; O2SAT 87–100; BMI 41.9
[2022-03-01] MEDS: 0.9% Normal Saline 1,000 ML 1000 ML IV ×2 (19:05→20:39)
[2022-03-01 19:06] LABS: Bedside Glucose > 500 mg/dL (74-106)
--- NOTE | 2022-03-01 19:10 | EX.ED.DYSGE1 ---
HPI History of Present Illness Chief Complaint: General Illness Detail of Chief Complaint: Elevated blood sugar. Informant: patient Onset/Context/Timing Onset: Today Context: Gradual Onset Timing: Continuous Current Severity: Moderate Maximum Severity: Moderate Narrative Narrative: 31-year-old female history of insulin-dependent diabetes, hypertension and recent admission to a hospital in [place], [place] for DKA and UTI. States that she still having dysuria. Today her blood sugars were at over 600. She did take 20 units of insulin this morning but then the needle broke and has not taken any since around 8:30 this morning. Also having nausea and vomiting. No diarrhea. Prior similar symptoms: Yes Recent Illness/Hospitalization: Yes PFSH [facility] Medical History Anemia Bone fracture Cancer Diabetes Environmental allergies Gallstones History of blood transfusion Kidney stones Liver disease Migraines Home Medications clonazepam 0.5 mg PO TID 10/22/16 [History Last Taken 08/10/18] lamotrigine [Lamictal] 100 mg PO DAILY 08/06/19 [History Last Taken Unknown] ondansetron 4 mg PO Q8H PRN PRN #12 tab 08/06/19 [Rx Last Taken Unknown] fluoxetine 40 mg PO DAILY 02/19/22 [History Last Taken Unknown] insulin glargine U-300 conc [Toujeo SoloStar U-300 Insulin] 32 units SC BID 02/19/22 [History Last Taken Unknown] insulin lispro [Humalog U-100 Insulin] 10 units SC TIDCM 02/19/22 [History Last Taken Unknown] lisdexamfetamine [Vyvanse] 70 mg PO DAILY 02/19/22 [History Last Taken Unknown] ondansetron 4 mg PO Q8H PRN PRN #10 tab 02/19/22 [Rx Last Taken Unknown] cephalexin 250 mg BID 03/01/22 [History Last Taken Unknown] Allergy/AdvReac Type Severity Reaction Status Date / Time acetazolamide Allergy Hives Verified 03/01/22 19:07 [From Diamox Sequels] ibuprofen Allergy Laryngospas Verified 03/01/22 19:07 ms Iodinated Contrast Media Allergy Hives Verified 03/01/22 19:07 [CONTRASTS] ketorolac [From Toradol] Allergy Hives Verified 03/01/22 19:07 naproxen Allergy Laryngospas Verified 03/01/22 19:07 ms Family History Other Autoimmune disease Diabetes Hypertension Kidney disease Liver disease Thyroid disorder Surgical History H/O: hysterectomy History of tonsillectomy Hx of cholecystectomy Hx of hernia repair S/P foot surgery, left Social History Smoking Status: Former smoker ROS ROS ED ROS Narrative Elevated blood sugar. Nausea and vomiting. Review of Systems ROS Unobtainable: Denies due to encephalopathy Constitutional Constitutional ED: Reports chills; Denies fever(s) Eyes Eyes: Denies change in vision ENT ENT ED: Denies ear pain Cardiovascular Cardiovascular: Denies chest pain Respiratory/Chest Respiratory/Chest: Denies cough or dyspnea Gastrointestinal Gastrointestinal: Reports nausea and vomiting; Denies abdominal pain or diarrhea Genitourinary Genitourinary ED: Reports dysuria Musculoskeletal Musculoskeletal: Denies arthralgias or myalgias Integumentary Denies abscess or rash Neurologic Neurologic: Denies headache(s) Endocrine Endocrinology: Denies polyuria Allergic/Immunologic Allergic/Immunologic ED: Denies urticaria EXAM Physical Exam Narrative Exam Narrative: 31-year-old female vital signs stable afebrile. H EENT exam dry mucous members. Neck nontender. Lungs are clear. Heart regular rhythm rate about 70 no murmur. Abdomen soft nondistended normal bowel sounds no peritoneal signs. No obstruction. Moving all 4 extremities. Neurologically awake and alert. No focal motor deficits. Const Vital Signs: 03/01/22 18:58 03/01/22 19:05 03/01/22 20:35 Temperature 96.8 F L Temperature Source Temporal Pulse Rate 68 Respiratory Rate 18 Respiratory Effort Normal Respiratory Pattern Normal Blood Pressure 143/77 H Blood Pressure Mean 99 Pulse Ox 97 87 Oxygen Delivery Method Room Air Room Air Oxygen Flow Rate (L/min) 03/01/22 20:36 03/01/22 21:18 03/01/22 21:51 Temperature Temperature Source Pulse Rate 47 L 64 Respiratory Rate 14 Respiratory Effort Respiratory Pattern Blood Pressure 130/79 H Blood Pressure Mean 96 Pulse Ox 96 100 Oxygen Delivery Method Nasal Cannula Nasal Cannula Oxygen Flow Rate (L/min) 2 2 03/01/22 22:21 Temperature Temperature Source Pulse Rate 85 Respiratory Rate 25 H Respiratory Effort Respiratory Pattern Blood Pressure 111/72 Blood Pressure Mean 85 Pulse Ox 100 Oxygen Delivery Method Oxygen Flow Rate (L/min) Positive well nourished, well developed and obese; Negative for cachectic, contractures or unkempt General Appearance ED: well developed, NAD and pallor; Negative for unkempt, cachectic, contractures, cyanotic or diaphoretic Nutritional Appearance: obese; Negative for cachectic HEENT Reports dry mucous membranes; Denies moist mucous membranes Negative for trauma or tenderness Mouth ED: Yes dry mucous membranes Mouth: dry mucous membranes Eyes PERRL and EOMs intact bilaterally General Eye ED: Negative for pale conjunctiva Neck no lymphadenopathy, supple and no JVD General: Negative for tenderness Chest Wall inspection of chest normal and palpation of chest normal Resp normal respiratory effort and clear to auscultation bilaterally Effort and Inspection: Negative for pain with movement Auscultation: Negative for rales, rhonchi or wheezes Cardio regular rate, regular rhythm, S1 normal heart sound, S2 normal heart sound and no murmurs GI normal to inspection, nondistended, normoactive bowel sounds, non-tender, non-distended and no masses Inspection: Negative for abdominal distention Auscultation: normoactive bowel sounds Palpation: soft; Negative for tender, guarding or rebound tenderness present Back/Spine no CVA tenderness General Back: Negative for CVA tenderness Cervical Spine: Negative for cervical spine tenderness Thoracic Spine / Upper Back: Negative for thoracic spinal tenderness or paraspinal muscle tenderness Lumbar Spine / Lower Back: Negative for lumbar spinal tenderness Extremity normal to inspection General Extremety ED: Negative for edema or tenderness General Extremity: Negative for edema Neuro oriented x3 Sensorium / Orientation: alert; Negative for lethargic or stuporous Motor Exam: strength 5/5 throughout Psych mental status grossly normal Appearance: Negative for unkempt Attitude: No agitated Mood & Affect: Negative for depressed or tearful Skin no rashes or lesions noted and no wounds General Skin Exam: pallor; Negative for jaundice MDM MDM MDM Narrative Medical decision making narrative: 31-year-old diabetic female with elevated blood sugar. Concern is for DKA. Treated with IV fluids. Zofran for nausea. Screening labs and urinalysis being obtained. Labs showing normal anion gap at 9. Glucose of 572. She will be given a second liter normal saline. Subcu insulin 16 units. Have her blood sugar rechecked in an hour. Currently does not appear that she is in DKA. With a normal anion gap. And negative serum ketones. Repeat exam at 10:20 PM. Patient's girlfriend has arrived. She states she is on a lot like this. She does have a history of prior drug abuse. She is currently reportedly on methadone. Her girlfriend states that she is normally not like this. I am obtaining a drug screen, CT of her brain and chest x-ray. Because currently other than being hyperglycemic her labs are basically unremarkable. Hospital hospitalist about admission for further evaluation. She is clinically stable at this time. I was just speaking to the patient and her significant other at bedside at 10:55 PM. Lab Data Attestation: I reviewed the patient's lab results. Lab results narrative: CBC shows a white count of 6. H&H 13 and 40. Platelets 182. Electrolytes show sodium 133 a anion gap of 9 BUN and creatinine 19 and 0.9. Glucose of 572. Venous blood gas because her unable to obtain arterial blood gases a pH 7.29, PCO2 of 61, PO2 was 72.Sat of 92%. Serum ketones negative. Urinalysis is negative. Labs: Laboratory Results - last 24 hr 03/01/22 03/01/22 03/01/22 19:01 19:15 19:15 WBC 6.3 RBC 4.18 L Hgb 13.3 Hct 40.2 MCV 96.2 MCH 31.8 MCHC 33.1 RDW Std Deviation 44.9 H RDW Coeff of Theron 12.7 Plt Count 182 MPV 11.4 Immature Gran % (Auto) 0.200 Neut % (Auto) 57.0 Lymph % (Auto) 33.7 Wilson % (Auto) 7.9 Eos % (Auto) 0.9 Baso % (Auto) 0.3 Absolute Neuts (auto) 3.6 Absolute Lymphs (auto) 2.13 Nucleated RBC % 0 Sodium 133 L Potassium 4.3 Chloride 96 L Carbon Dioxide 28.0 Anion Gap 9 BUN 19 H Creatinine 0.94 Estim Creat Clear Calc 78.03 Est GFR (MDRD) Af Amer 89 Est GFR (MDRD) Non-Af 74 BUN/Creatinine Ratio 20.3 H Glucose 572 H* Calcium 9.4 Urine Color Urine Clarity Urine pH Ur Specific [place] Urine Protein Urine Glucose (UA) Urine Ketones Urine Occult Blood Urine Nitrite Urine Bilirubin Urine Urobilinogen Ur Leukocyte Esterase Urine RBC Urine WBC Ur Squamous Epith Cells Urine Bacteria Urine Mucus Ur Drug Screen Comment Acetone Level POC Glucose > 500 H* 03/01/22 03/01/22 03/01/22 19:15 20:37 20:58 WBC RBC Hgb Hct MCV MCH MCHC RDW Std Deviation RDW Coeff of Theron Plt Count MPV Immature Gran % (Auto) Neut % (Auto) Lymph % (Auto) Wilson % (Auto) Eos % (Auto) Baso % (Auto) Absolute Neuts (auto) Absolute Lymphs (auto) Nucleated RBC % Sodium Potassium Chloride Carbon Dioxide Anion Gap BUN Creatinine Estim Creat Clear Calc Est GFR (MDRD) Af Amer Est GFR (MDRD) Non-Af BUN/Creatinine Ratio Glucose Calcium Urine Color Yellow Urine Clarity Clear Urine pH 5.0 Ur Specific [place] 1.015 Urine Protein Negative Urine Glucose (UA) 1000 H Urine Ketones 15 H Urine Occult Blood Negative Urine Nitrite Negative Urine Bilirubin Negative Urine Urobilinogen Normal Ur Leukocyte Esterase 25 H Urine RBC 0 SEEN Urine WBC 0-5 SEEN Ur Squamous Epith Cells 0-5 SEEN Urine Bacteria 0 SEEN Urine Mucus 0 SEEN Ur Drug Screen Comment Acetone Level NEGATIVE POC Glucose 368 H 03/01/22 03/01/22 03/01/22 20:58 21:17 22:19 WBC RBC Hgb Hct MCV MCH MCHC RDW Std Deviation RDW Coeff of Theron Plt Count MPV Immature Gran % (Auto) Neut % (Auto) Lymph % (Auto) Wilson % (Auto) Eos % (Auto) Baso % (Auto) Absolute Neuts (auto) Absolute Lymphs (auto) Nucleated RBC % Sodium Potassium Chloride Carbon Dioxide Anion Gap BUN Creatinine Estim Creat Clear Calc Est GFR (MDRD) Af Amer Est GFR (MDRD) Non-Af BUN/Creatinine Ratio Glucose Calcium Urine Color Urine Clarity Urine pH Ur Specific [place] Urine Protein Urine Glucose (UA) Urine Ketones Urine Occult Blood Urine Nitrite Urine Bilirubin Urine Urobilinogen Ur Leukocyte Esterase Urine RBC Urine WBC Ur Squamous Epith Cells Urine Bacteria Urine Mucus Ur Drug Screen Comment Acetone Level POC Glucose 341 H 246 H ABG Data ABG results: ABG 03/01/22 19:36 Specimen Type MIGUEL VBG pH 7.30 L VBG pO2 73 H VBG HCO3 30 H VBG Total CO2 32 VBG O2 Sat (Calc) 92 H VBG Base Excess 3 POC Mix VBG pCO2 Pt Tmp 61.0 H Radiography Chest X-Ray - ED: 1 View, Read by ED Physician, Heart, Lungs, Mediastinum, Bony Structures and No Acute Disease Diagnostic Testing: Chest x-ray, portable, single view interpreted by myself shows no acute abnormality. Normal cardiac silhouette. No infiltrate. Rhythm Strip Rhythm Strip: Sinus bradycardia Rate: 46 Ectopy: None EKG Initial EKG: Attestation: I personally reviewed and interpreted this EKG as follows: Interpretation: Sinus Bradycardia Comments: Sinus bradycardia rate of 46. Prolonged QT of 588. No signs of HI no ischemia. Discharge Plan Dx/Rx/DC Orders Clinical Impression: Hyperglycemia due to diabetes mellitus, Acute alteration in mental status, History of chronic hypertension, History of ovarian cancer, History of drug abuse Disposition Disposition: Acute Care Hospital [facility]
[2022-03-01] MEDS: Ondansetron 4 MG/2 ML Vial IV (19:13)
[2022-03-01 19:24] LABS: Absolute Lymphocyte Count 2.13 X10^3/uL (0.83-4.51); Absolute Neutrophil Count 3.6 X10^3/uL (2.0-7.7); Basophil# 0.02 X10^3/uL; Basophil% 0.3 % (0-1); Eosinophil# 0.06 X10^3/uL; Eosinophils% 0.9 % (0-5); Hematocrit 40.2 % (37-47); Hemoglobin 13.3 g/dL (12.0-15.0); Lymphocyte # 2.13 X10^3/ul (0.83-4.51); Lymphocyte % 33.7 % (19-41); Mean Corp Hgb Conc 33.1 g/dL (32-36); Mean Corpuscular Hgb 31.8 pg (27.0-32.0); Mean Corpuscular Volume 96.2 fL (81-99); Mean Platelet Vol. 11.4 fl (6.2-12.0); Monocyte% 7.9 % (0-10); NRBC Flagged by Analyzer 0 % (0-5); Platelet Count 182 K/mm3 (150-450); RBC Distribution Width CV 12.7 % (11.6-14.6); RBC Distribution Width SD 44.9 fl (35.1-43.9); Red Blood Count 4.18 M/mm3 (4.2-5.4); White Blood Count 6.3 K/mm3 (4.4-11.0)
[2022-03-01 19:45] LABS: Blood Gas Specimen Type VEN; VBG BASE EXCESS 3 mmol/L (-1.0-3.5); VBG Bicarbonate 30 mmol/L (22-26); VBG PO2 73 mmHg (25-40); VBG SO2 92 % (50-70); VBG TCO2 32 mmol/L (23-33)
[2022-03-01 19:55] LABS: Anion Gap 9 (5-15); BUN 19 mg/dL (7-18); BUN/Creat Ratio 20.3 RATIO (10-20); Calcium,Total 9.4 mg/dL (8.5-10.1); Chloride 96 mmol/L (98-107); Creatinine, Serum 0.94 mg/dL (0.55-1.02); EST Glomerular Filtration Rate 74 mL/min (>60); Est Glom Filt Rate - Afr Amer 89 mL/min (>60); Estimated Creatinine Clearance 78.03 ml/min; Glucose 572 mg/dL (74-106); Potassium 4.3 mmol/L (3.5-5.1); Sodium Level 133 mmol/L (136-145)
[2022-03-01] MEDS: Insulin Lispro 100 UNIT/ML INSULN.PEN 20 UNIT SC (20:39)
--- NOTE | 2022-03-01 20:42 | ED.RN ---
D/T BEDSIDE GLUCOSE LEVEL, AND PATIENT REPORT OF SSI, AND REPORTING SHE TOOK 20 UNITS EARLIER TODAY, VERBAL MILLER OF 16U HUMALOG GIVEN INSTEAD OF 20U, PER DR STUART.
[2022-03-01 20:46] LABS: Bedside Glucose 368 mg/dL (74-106)
[2022-03-01] MEDS: Acetaminophen 500 MG Tablet 1000 MG PO (21:01)
[2022-03-01 21:02] LABS: Bacteria 0 SEEN /hpf (None Seen); Mucous, Urine 0 SEEN /hpf (<or=2+); Red Blood Cells-Urine 0 SEEN /hpf (0-5)
--- NOTE | 2022-03-01 21:25 | NURSING ---
Dr aware of downward pulse trend and need for )2 since 2044. Will continue to monitor.
[2022-03-01 21:26] LABS: Bedside Glucose 341 mg/dL (74-106)
[2022-03-01 21:32] LABS: Color, Urine Yellow (Yellow); Glucose, Dipstick 1000 mg/dl (Normal); Ketone-Dipstick 15 mg/dl (Negative); Leukocyte Esterase-Dipstick 25 /ul (Negative); Nitrite-Dipstick Negative (Negative); Occult Blood-Urine Negative /ul (Negative); Protein-Dipstick Negative (Negative); Specific Gravity, Urine 1.015 (1.002-1.030); Urine Bilirubin Dipstick Negative (Negative); Urine Clarity Clear (Clear); Urine Urobilinogen Normal (Normal)
--- NOTE | 2022-03-01 21:32 | EKG12_ITS ---
Test Reason : WEAKNESS Blood Pressure : / mmHG Vent. Rate : 046 BPM Atrial Rate : 046 BPM P-R Int : 124 ms QRS Dur : 088 ms QT Int : 588 ms P-R-T Axes : 011 020 004 degrees QTc Int : 514 ms Sinus bradycardia Nonspecific T wave abnormality Prolonged QT Abnormal ECG Confirmed by ROSA MACHADO, JAVIER ([id number]), industrial editor PEPITO DEL CASTILLO ([id number]) on 03/02/2022 12:53:56 PM Referred By: KILEY Confirmed By:JAVIER LEE MD
[2022-03-01 21:57] LABS: Squamous Epithelial Cells - UA 0-5 SEEN /hpf (5-10); White Blood Cells 0-5 SEEN /hpf (0-5)
--- NOTE | 2022-03-01 22:21 | CT_ITS ---
STUDY: CT BRAIN WITHOUT CONTRAST REASON FOR EXAM: Female, 31 years old. ms change UTI CAUSING ELEVATED BLOOD SUGAR AND ALTERED MENTAL STATUS RADIATION DOSAGE (If Supplied By Facility): CTDIvol = ( 44.99 ) mGy, DLP = ( 846.73 ) mGycm TECHNIQUE: Transaxial CT imaging of the brain was performed without administration of intravenous contrast material. Individualized dose optimization techniques were used for this CT. COMPARISON: No relevant priors. FINDINGS: Normal soft tissue structures. Normal calvarium. Normal size ventricles and extra-axial spaces for the patient''s age. Normal white matter tracts of the cerebral hemispheres. Normal basal ganglia and thalami. Normal brainstem. Normal cerebellum. There is no intracranial hemorrhage. There are no findings of an acute ischemic infarction. Mucosal retention cysts of the left maxillary sinus. CT/Brain/Head without Contrast IMPRESSION: Normal unenhanced CT scan of the brain. Electronically Signed: David Harden MD (Brooks) at 23:07 EDT ,
[2022-03-01 22:26] LABS: Bedside Glucose 246 mg/dL (74-106)
--- NOTE | 2022-03-01 22:35 | RAD_ITS ---
STUDY: X-RAY CHEST REASON FOR EXAM: Female, 31 years old. ms change TECHNIQUE: AP COMPARISON: None. FINDINGS: EKG leads project over the chest. The lungs are clear and expanded. There is no demonstrated pleural abnormality. Normal size heart. Normal mediastinum and dorian. Normal visualized pulmonary arteries. Normal visualized aortic arch and descending thoracic aorta. No acute bony process. There is no demonstrated abnormality of the visualized soft tissue structures of the upper abdomen. RAD/Chest 1 View (Portable) IMPRESSION: Nonacute portable x-ray examination of the chest. Electronically Signed: David Harden MD (Brooks) at 22:54 EDT ,
--- NOTE | 2022-03-01 22:55 | PCM.HP.STD ---
HPI - General General Date of Admission: 03/01/22 HPI Narrative EVA SAUCEDO, is a 31 F with a significant history of diabetes mellitus; opioid abuse and now on methadone; UTI on Keflex who presents to the emergency department with elevated blood sugars. On the same day of presentation her blood sugar was severely elevated. Reportedly she had her last needle for insulin and the needle broke so she was no longer able to give herself any insulin. Associated with symptoms is lethargy. Emergency department reported that patient significant other woke in the patient room at the ED and felt that patient's mental status was changed. ED doc reported sinus bradycardia at the ED. She was at Admitting Department on 02/19/2022 for hyperglycemia. After the emergency visits on 02/19/2022 she has also been at [facility] for DKA and UTI. She still complains of lower abdominal pain going to her back and dysuria. She reports nausea without vomiting. She reported that recently she has had poor appetite but on the day of presentation her appetite was good. She reported a day before presentation she had a fever but on day of presentation she did not have any fever. Reportedly her temperature was over 100 Fahrenheit a day before presentation. [facility] Medical History Anemia Bone fracture Cancer Diabetes Environmental allergies Gallstones History of blood transfusion Kidney stones Liver disease Migraines Home Medications clonazepam 0.5 mg PO TID 10/22/16 [History Last Taken 08/10/18] lamotrigine [Lamictal] 100 mg PO DAILY 08/06/19 [History Last Taken Unknown] ondansetron 4 mg PO Q8H PRN PRN #12 tab 08/06/19 [Rx Last Taken Unknown] fluoxetine 40 mg PO DAILY 02/19/22 [History Last Taken Unknown] insulin glargine U-300 conc [Toujeo SoloStar U-300 Insulin] 32 units SC BID 02/19/22 [History Last Taken Unknown] insulin lispro [Humalog U-100 Insulin] 10 units SC TIDCM 02/19/22 [History Last Taken Unknown] lisdexamfetamine [Vyvanse] 70 mg PO DAILY 02/19/22 [History Last Taken Unknown] ondansetron 4 mg PO Q8H PRN PRN #10 tab 02/19/22 [Rx Last Taken Unknown] cephalexin 250 mg BID 03/01/22 [History Last Taken Unknown] Allergy/AdvReac Type Severity Reaction Status Date / Time acetazolamide Allergy Hives Verified 03/01/22 19:07 [From Diamox Sequels] ibuprofen Allergy Laryngospas Verified 03/01/22 19:07 ms Iodinated Contrast Media Allergy Hives Verified 03/01/22 19:07 [CONTRASTS] ketorolac [From Toradol] Allergy Hives Verified 03/01/22 19:07 naproxen Allergy Laryngospas Verified 03/01/22 19:07 ms Family History Other Autoimmune disease Diabetes Hypertension Kidney disease Liver disease Thyroid disorder Surgical History H/O: hysterectomy History of tonsillectomy Hx of cholecystectomy Hx of hernia repair S/P foot surgery, left Social History Smoking Status: Former smoker ROS ROS Narrative Pertinent positives and pertinent negatives as noted in HPI. All other systems were reviewed and are negative. Vital Signs Vital Signs Vital Signs: 03/01/22 18:58 03/01/22 19:05 03/01/22 20:35 Temperature 96.8 F L Temperature Source Temporal Pulse Rate 68 Respiratory Rate 18 Respiratory Effort Normal Respiratory Pattern Normal Blood Pressure 143/77 H Blood Pressure Mean 99 Pulse Ox 97 87 Oxygen Delivery Method Room Air Room Air Oxygen Flow Rate (L/min) 03/01/22 20:36 03/01/22 21:18 03/01/22 21:51 Temperature Temperature Source Pulse Rate 47 L 64 Respiratory Rate 14 Respiratory Effort Respiratory Pattern Blood Pressure 130/79 H Blood Pressure Mean 96 Pulse Ox 96 100 Oxygen Delivery Method Nasal Cannula Nasal Cannula Oxygen Flow Rate (L/min) 2 2 03/01/22 22:21 Temperature Temperature Source Pulse Rate 85 Respiratory Rate 25 H Respiratory Effort Respiratory Pattern Blood Pressure 111/72 Blood Pressure Mean 85 Pulse Ox 100 Oxygen Delivery Method Oxygen Flow Rate (L/min) Weight Weight: 114.3 kg Body Mass Index (BMI) 41.9 Physical Exam Narrative Physical exam: General: Well-nourished, well-developed. Head: Normocephalic, atraumatic, no tenderness Eyes: Vision is grossly intact. EOMI ENT, no trauma, dry mucous membranes, no rhinorrhea Neck: Nontender, full range of motion, no spinal tenderness, deformities, step-off CVS: Regular rate and rhythm. S1-S2 present. No murmur, gallop or rub. Respiratory : clear to auscultation bilaterally, chest wall nontender, no wheezing Abdomen: Soft, nontender, nondistended, normal bowel sounds, no masses : Deferred Back: Nontender, no CVA tenderness, no midline spinal tenderness, deformities, step-offs Extremities: Nontender full range of motion, no trauma Skin: Normal color, no trauma, abrasions Neuro: Lethargic 70 oriented, cranial nerves II through XII grossly intact. Psychiatry: Normal mood. Normal affect. Not depressed. Not anxious. Results Lab / Micro Data Result Diagrams: 03/01/22 19:15 03/01/22 19:15 Labs: Laboratory Results - last 24 hr 03/01/22 19:01: POC Glucose > 500 H* 03/01/22 19:15: WBC 6.3, RBC 4.18 L, Hgb 13.3, Hct 40.2, MCV 96.2, MCH 31.8, MCHC 33.1, RDW Std Deviation 44.9 H, RDW Coeff of Theron 12.7, Plt Count 182, MPV 11.4, Immature Gran % (Auto) 0.200, Neut % (Auto) 57.0, Lymph % (Auto) 33.7, Bland % (Auto) 7.9, Eos % (Auto) 0.9, Baso % (Auto) 0.3, Absolute Neuts (auto) 3.6, Absolute Lymphs (auto) 2.13, Nucleated RBC % 0 03/01/22 19:15: Sodium 133 L, Potassium 4.3, Chloride 96 L, Carbon Dioxide 28.0, Anion Gap 9, BUN 19 H, Creatinine 0.94, Estim Creat Clear Calc 78.03, Est GFR (MDRD) Af Amer 89, Est GFR (MDRD) Non-Af 74, BUN/Creatinine Ratio 20.3 H, Glucose 572 H*, Calcium 9.4 03/01/22 19:15: Acetone Level NEGATIVE 03/01/22 20:37: POC Glucose 368 H 03/01/22 20:58: Urine Color Yellow, Urine Clarity Clear, Urine pH 5.0, Ur Specific [place] 1.015, Urine Protein Negative, Urine Glucose (UA) 1000 H, Urine Ketones 15 H, Urine Occult Blood Negative, Urine Nitrite Negative, Urine Bilirubin Negative, Urine Urobilinogen Normal, Ur Leukocyte Esterase 25 H, Urine RBC 0 SEEN, Urine WBC 0-5 SEEN, Ur Squamous Epith Cells 0-5 SEEN, Urine Bacteria 0 SEEN, Urine Mucus 0 SEEN 03/01/22 20:58: Ur Drug Screen Comment 03/01/22 21:17: POC Glucose 341 H 03/01/22 22:19: POC Glucose 246 H ABG Data ABG results: ABG 03/01/22 19:36 Specimen Type MIGUEL VBG pH 7.30 L VBG pO2 73 H VBG HCO3 30 H VBG Total CO2 32 VBG O2 Sat (Calc) 92 H VBG Base Excess 3 POC Mix VBG pCO2 Pt Tmp 61.0 H Rhythm Strip Rhythm Strip: Sinus bradycardia Rate: 46 Ectopy: None Radiology Impression Chest X-Ray 03/01/22 22:35 IMPRESSION: Nonacute portable x-ray examination of the chest. Electronically Signed: David Harden MD (Brooks) at 22:54 EDT Reading Location ID and State: [facility] / [place] , Service support , Assessment & Plan Assessment/Plan (1) Hyperglycemia due to diabetes mellitus: (2) Acute alteration in mental status: (3) Encephalopathy acute: PLAN: Acute hyperglycemia due to diabetes mellitus Blood glucose on presentation was 572. Serum osmolality ordered return as 309. Anion gap of 9. Sodium of 133 on presentation. Corrected for blood glucose sodium is 141. Likely HHS on presentation at the ED but no longer in HHS. Received normal saline bolus at emergency department. Maintenance IV hydration ordered. Receive subcutaneous insulin 20 units at emergency department. Continue home basal and prandial insulin. Accu-Chek QA CHS and 2 AM with correction scale insulin ordered. Acute metabolic encephalopathy Chest x-ray was visualized and independently interpreted and I agree with direct interpretation above. Brain CT on presentation was normal Likely secondary to hyperglycemia and dehydration. Psychiatric complaint may be contributing as during the cause of conversation patient became more alert. Of note patient is on stimulants (lisdexamfetamine) Treatment of hyperglycemia as above. Treatment of dehydration as below. Hold all pain medication and anxiolytics at this time. No narcotics at this time. CBC showed white count of 6.3. Trend CBC. Dehydration Dry mucous membranes on presentation. BUN of 19 on presentation. Her BUN on 02/19/2022 was 12. Likely secondary to poor intake and osmotic diuresis. IV hydration as above. Trend BMP. DVT prophylaxis Subcutaneous Lovenox ordered. Charges/Coding Visit Charges OBSV E&M: 05901 Initial observation care L3
[2022-03-01 23:15] LABS: Amphetamine Urine VISTA NEGATIVE (<1000 ng/mL); Barbiturate Urine VISTA NEGATIVE (< 200 ng/mL); Benzodiazepine Urine VISTA NEGATIVE (< 200 ng/mL); Cocaine Urine VISTA NEGATIVE (< 300 ng/mL); Ecstacy Urine VISTA NEGATIVE (< 500 ng/mL); Methadone Urine VISTA POSITIVE (< 300 ng/mL); PCP Urine VISTA NEGATIVE (< 25 ng/mL); THC Urine VISTA POSITIVE (< 50 ng/mL); Vista UDS pH Range 5
[2022-03-01 23:24] LABS: Osmolality, Serum 309 mOsm/KG (275-295)
[2022-03-01 23:32] LABS: Internal QC Validated? YES +Cl - CLEAR BKGD; Pregnancy, Serum, hCG Quali. NEGATIVE Negative
--- NOTE | 2022-03-01 23:42 | ED.RN ---
TEST NOT DONE C/T H/O ENDOMETRIAL CA AND HYSTERECTOMY PER PATIENT
[2022-03-02] VITALS: BP 147/88; PULSE 61; PULSE 64; RESP 16; TEMP 36.6; O2SAT 95; BMI 40.1
[2022-03-02] MEDS: 0.9% Normal Saline 1,000 ML 150 ML IV ×2 (00:35→07:18)
[2022-03-02] MEDS: Ondansetron 4 MG/2 ML Vial IV (03:26)
--- NOTE | 2022-03-02 03:34 | PN_ITS ---
Progress Note Patient noted to have hypoglycemia. While patient was on the cruz no basal or correction scale insulin was given. She only received insulin at the ED. De- escalate basal insulin. De-escalate prandial insulin. Accu-Chek with correction scale insulin continued.
[2022-03-02 04:26] LABS: Bedside Glucose 52 mg/dL (74-106)
[2022-03-02 04:26] LABS: Bedside Glucose 209 mg/dL (74-106)
[2022-03-02 04:37] VITALS: BP 124/74; PULSE 76; RESP 16; TEMP 36.4; O2SAT 92
[2022-03-02 04:54] VITALS: PULSE 61
[2022-03-02 06:13] LABS: Absolute Lymphocyte Count 2.45 X10^3/uL (0.83-4.51); Absolute Neutrophil Count 2.1 X10^3/uL (2.0-7.7); Basophil# 0.02 X10^3/uL; Basophil% 0.4 % (0-1); Eosinophil# 0.13 X10^3/uL; Eosinophils% 2.5 % (0-5); Hematocrit 34.7 % (37-47); Hemoglobin 11.3 g/dL (12.0-15.0); Lymphocyte # 2.45 X10^3/ul (0.83-4.51); Mean Corp Hgb Conc 32.6 g/dL (32-36); Mean Corpuscular Hgb 31.7 pg (27.0-32.0); Mean Corpuscular Volume 97.5 fL (81-99); Monocyte# 0.41 X10^3/uL; NRBC Flagged by Analyzer 0 % (0-5); Neutrophil # 2.08 X10^3/uL (2.7-7.7); Neutrophil % 40.9 % (47-70); Platelet Count 157 K/mm3 (150-450); RBC Distribution Width CV 12.9 % (11.6-14.6); RBC Distribution Width SD 46.1 fl (35.1-43.9); Red Blood Count 3.56 M/mm3 (4.2-5.4); White Blood Count 5.1 K/mm3 (4.4-11.0)
[2022-03-02] MEDS: Insulin Lispro 100 UNIT/ML INSULN.PEN SC ×3 (06:36→11:12)
[2022-03-02 06:40] LABS: Anion Gap 6 (5-15); BUN 13 mg/dL (7-18); Calcium,Total 8.2 mg/dL (8.5-10.1); Chloride 106 mmol/L (98-107); Creatinine, Serum 0.52 mg/dL (0.55-1.02); EST Glomerular Filtration Rate 146 mL/min (>60); Est Glom Filt Rate - Afr Amer 177 mL/min (>60); Estimated Creatinine Clearance 141.05 ml/min; Glucose 176 mg/dL (74-106); Potassium 3.7 mmol/L (3.5-5.1); Sodium Level 141 mmol/L (136-145)
[2022-03-02 07:00] VITALS: PULSE 63
[2022-03-02 07:00] LABS: Bedside Glucose 38 mg/dL (74-106)
[2022-03-02 07:00] LABS: Bedside Glucose 33 mg/dL (74-106)
[2022-03-02 07:05] LABS: Bedside Glucose 206 mg/dL (74-106)
[2022-03-02 07:16] VITALS: O2SAT 93
[2022-03-02 07:29] LABS: Hemoglobin A1c 7.8 % (3.8-5.6)
[2022-03-02] MEDS: Enoxaparin 40 MG/0.4 ML Syringe SC (08:54)
[2022-03-02] MEDS: Cephalexin 250 MG Capsule PO (08:54)
[2022-03-02] MEDS: lamoTRIgine 100 MG Tablet PO (08:54)
[2022-03-02] MEDS: Insulin Glargine-YFGN 100 UNIT/ML Pen 24 UNIT SC (08:56)
[2022-03-02 09:06] LABS: Bedside Glucose 186 mg/dL (74-106)
[2022-03-02 10:30] VITALS: BP 117/66; PULSE 73; RESP 16; TEMP 36.7; O2SAT 95
--- NOTE | 2022-03-02 10:42 | PCM.DC ---
Discharge Instructions Diet Discharge Diet: 1800 Calorie Control Diet Activity Discharge Activity: Return to Normal Activity Follow Up Care Test Results: Test results from this visit will be discussed in further detail at your follow-up appointment, if applicable. Discharge Plan Admission Admit Date/Time: 03/01/22 23:06 Primary Reason for Your Visit: Hyperglycemia Attending Provider: Yvette Hudson Primary Care Provider: Shiraz Gardiner,Vivian Primary Consulting Providers: Harry Leblanc Instructions Additional Instructions / Restrictions: Continue to monitor your blood glucose closely. Follow-up with your portable irrigation operator within 1 to 2 weeks with a log of her blood sugars. Continue to follow-up with your methadone clinic Discharge Orders/Prescriptions Prescriptions: New (DME) lancets [Lancets,Ultra Thin] Misc See Rx Instructions .ROUTE .MEDSUPPLY Qty: 100 RF: 0 (DME) NovoFine Plus 32 gauge x 1/6 needle 1 ea miscellaneous TID 30 Days Qty: 100 RF: 0 (DME) needle (disp) 21 G 21 gauge x 1 needle See Rx Instructions .ROUTE .MEDSUPPLY Qty: 1000 RF: 0 Continued clonazepam 0.5 MG tablet 2 mg PO TID RF: 0 lamotrigine [Lamictal] 100 MG tablet 100 mg PO DAILY RF: 0 ondansetron 4 MG tablet 4 mg PO Q8H PRN PRN (Reason: Nausea) Qty: 12 RF: 0 insulin lispro [Humalog U-100 Insulin] 100 UNIT/ML solution 10 units SC TIDCM RF: 0 Toujeo SoloStar U-300 Insulin 300 UNIT/ML insulin pen 32 units SC BID RF: 0 fluoxetine 40 mg capsule 40 mg PO DAILY RF: 0 Vyvanse 70 mg capsule 70 mg PO DAILY RF: 0 Discontinued ondansetron 4 mg tablet,disintegrating 4 mg PO Q8H PRN PRN (Reason: Nausea) Qty: 10 RF: 0 cephalexin 250 mg capsule 250 mg BID RF: 0 Referrals / Follow Up: Care Physician,No Primary [Primary Care Provider] - In 1 Week Disposition Disposition (needs filled in before D/C Order can be placed): Home, Self Care
--- NOTE | 2022-03-02 11:00 | PCM.DC.SUM ---
Providers Date of Admission: 03/01/22 Date of Discharge: 03/02/22 Primary Care Physician: Vivian Primary Care Phys Reason For Visit: ACUTE HYPERGLYCEMIA; ACUTE ENCEPHALOPATHY Diagnosis Discharge Diagnosis (1) Hyperglycemia due to diabetes mellitus: Status: Acute Code(s): E11.65 - Type 2 diabetes mellitus with hyperglycemia (2) Acute alteration in mental status: Status: Acute Code(s): R41.82 - Altered mental status, unspecified (3) Encephalopathy acute: Status: Acute Code(s): G93.40 - Encephalopathy, unspecified Medications at Discharge Home Medications clonazepam 2 mg PO TID 10/22/16 lamotrigine [Lamictal] 100 mg PO DAILY 08/06/19 ondansetron 4 mg PO Q8H PRN PRN #12 tab 08/06/19 Toujeo SoloStar U-300 Insulin 32 units SC BID 02/19/22 Vyvanse 70 mg PO DAILY 02/19/22 fluoxetine 40 mg PO DAILY 02/19/22 insulin lispro [Humalog U-100 Insulin] 10 units SC TIDCM 02/19/22 lancets [Lancets,Ultra Thin] #100 ea 03/02/22 needle (disp) 21 G #1000 ea 03/02/22 pen needle, diabetic [Novofine 32] #100 ea 03/02/22 Hospital Course Operations None Procedures None Summary of Care Provided Minutes Spent on Discharge: 30 Hospital Course: 31-year-old female past medical history of type II DM, chronic opioid dependence, on chronic methadone who presented with elevated blood sugars. Patient stated that her needle for her sugars broke so she was unable to give us of any insulin. Her blood sugar on admission was more than 572, anion gap was 9. She was also very lethargic. She received 20 units of subcutaneous insulin in the ED. She has been admitted to the progressive care unit and continue on IV fluid hydration. Patient developed an episode of hypoglycemia in the hospital. Her basal and prandial insulins were held. She was treated. Her sugars continue to improve. Patient is on huge doses of methadone chronically; methadone 105mg daily, follows with her methadone clinic. She was given refills of needles and lancets. She stated that she had a glucometer and enough strips. [facility], patient has history of recurrent no-shows for appointment. Patient was strongly advised to make an appointment to follow-up within a week Physical Exam Narrative Physical exam: General: Alert, Oriented x3, Cooperative, No apparent distress, morbidly obese HEENT: Atraumatic Oral: Moist Mucosa Neck: Supple Lungs: Clear to auscultation Cardiovascular: HS I+II, regular, no murmurs Abdomen: Bowel Sounds Present, Soft, Non Tender Extremities: No edema Skin: No rashes, No breakdown Neurological: Grossly intact Psych/Mental Status: Appropriate Weight / BMI Weight Weight: 109.588 kg Body Mass Index (BMI) 40.1 ABG / Lab / Microbiology Data Result Diagrams: 03/02/22 05:35 03/02/22 05:35 Laboratory: Laboratory Results - last 24 hr 03/01/22 19:01: POC Glucose > 500 H* 03/01/22 19:15: WBC 6.3, RBC 4.18 L, Hgb 13.3, Hct 40.2, MCV 96.2, MCH 31.8, MCHC 33.1, RDW Std Deviation 44.9 H, RDW Coeff of Theron 12.7, Plt Count 182, MPV 11.4, Immature Gran % (Auto) 0.200, Neut % (Auto) 57.0, Lymph % (Auto) 33.7, [place] % (Auto) 7.9, Eos % (Auto) 0.9, Baso % (Auto) 0.3, Absolute Neuts (auto) 3.6, Absolute Lymphs (auto) 2.13, Nucleated RBC % 0 03/01/22 19:15: Sodium 133 L, Potassium 4.3, Chloride 96 L, Carbon Dioxide 28.0, Anion Gap 9, BUN 19 H, Creatinine 0.94, Estim Creat Clear Calc 78.03, Est GFR (MDRD) Af Amer 89, Est GFR (MDRD) Non-Af 74, BUN/Creatinine Ratio 20.3 H, Glucose 572 H*, Calcium 9.4 03/01/22 19:15: Acetone Level NEGATIVE 03/01/22 19:15: Serum , Qual NEGATIVE 03/01/22 19:15: Serum Osmolality 309 H 03/01/22 20:37: POC Glucose 368 H 03/01/22 20:58: Urine Color Yellow, Urine Clarity Clear, Urine pH 5.0, Ur Specific [place] 1.015, Urine Protein Negative, Urine Glucose (UA) 1000 H, Urine Ketones 15 H, Urine Occult Blood Negative, Urine Nitrite Negative, Urine Bilirubin Negative, Urine Urobilinogen Normal, Ur Leukocyte Esterase 25 H, Urine RBC 0 SEEN, Urine WBC 0-5 SEEN, Ur Squamous Epith Cells 0-5 SEEN, Urine Bacteria 0 SEEN, Urine Mucus 0 SEEN 03/01/22 20:58: Urine Opiates Screen NEGATIVE, Urine Methadone Screen POSITIVE H, Ur Barbiturates Screen NEGATIVE, Ur Phencyclidine Scrn NEGATIVE, Ur Amphetamines Screen NEGATIVE, MDMA (Ecstasy) Screen NEGATIVE, U Benzodiazepines Scrn NEGATIVE, Urine Cocaine Screen NEGATIVE, U Cannabinoids Screen POSITIVE H, Ur Drug Screen Comment 03/01/22 21:17: POC Glucose 341 H 03/01/22 22:19: POC Glucose 246 H 03/02/22 02:49: POC Glucose 38 L* 03/02/22 02:51: POC Glucose 33 L* 03/02/22 03:14: POC Glucose 52 L 03/02/22 04:16: POC Glucose 209 H 03/02/22 05:35: WBC 5.1, RBC 3.56 L, Hgb 11.3 L, Hct 34.7 L, MCV 97.5, MCH 31.7, MCHC 32.6, RDW Std Deviation 46.1 H, RDW Coeff of Theron 12.9, Plt Count 157, MPV 11.0, Immature Gran % (Auto) 0.200, Neut % (Auto) 40.9 L, Lymph % (Auto) 48.0 H, [place] % (Auto) 8.0, Eos % (Auto) 2.5, Baso % (Auto) 0.4, Absolute Neuts (auto) 2.1, Absolute Lymphs (auto) 2.45, Nucleated RBC % 0 03/02/22 05:35: Sodium 141, Potassium 3.7, Chloride 106, Carbon Dioxide 29.0, Anion Gap 6, BUN 13, Creatinine 0.52 L, Estim Creat Clear Calc 141.05, Est GFR (MDRD) Af Amer 177, Est GFR (MDRD) Non-Af 146, BUN/Creatinine Ratio 25.0 H, Glucose 176 H, Calcium 8.2 L 03/02/22 05:35: Hemoglobin A1c 7.8 H 03/02/22 06:34: POC Glucose 206 H 03/02/22 08:55: POC Glucose 186 H ABG: ABG 03/01/22 19:36 Specimen Type MIGUEL VBG pH 7.30 L VBG pO2 73 H VBG HCO3 30 H VBG Total CO2 32 VBG O2 Sat (Calc) 92 H VBG Base Excess 3 POC Mix VBG pCO2 Pt Tmp 61.0 H Radiography Diagnostic Testing: Radiology Impression Brain CT 03/01/22 22:21 IMPRESSION: Normal unenhanced CT scan of the brain. Electronically Signed: David Harden MD ([place]) at 23:07 EDT , Chest X-Ray 03/01/22 22:35 IMPRESSION: Nonacute portable x-ray examination of the chest. Electronically Signed: David Harden MD ([place]) at 22:54 EDT , D/C Instructions Discharge Diet: 1800 Calorie Control Diet Meaningful Use Info Meaningful Use Diagnoses (Choose all that apply): None applicable Discharge Plan Admission Admit Date/Time: 03/01/22 23:06 Primary Reason for Your Visit: Hyperglycemia Attending Provider: Yvette Hudson Primary Care Provider: Care Physician,No Primary Consulting Providers: Harry Leblanc Instructions Additional Instructions / Restrictions: Continue to monitor your blood glucose closely. 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 Continue to follow-up with your methadone clinic Discharge Orders/Prescriptions Prescriptions: New (DME) lancets [Lancets,Ultra Thin] Misc See Rx Instructions .ROUTE .MEDSUPPLY Qty: 100 RF: 0 (DME) needle (disp) 21 G 21 gauge x 1 needle See Rx Instructions .ROUTE .MEDSUPPLY Qty: 1000 RF: 0 (DME) pen needle, diabetic [Novofine 32] 32 gauge x 1/4 needle See Rx Instructions .ROUTE .MEDSUPPLY Qty: 100 RF: 0 Continued clonazepam 0.5 MG tablet 2 mg PO TID RF: 0 lamotrigine [Lamictal] 100 MG tablet 100 mg PO DAILY RF: 0 ondansetron 4 MG tablet 4 mg PO Q8H PRN PRN (Reason: Nausea) Qty: 12 RF: 0 insulin lispro [Humalog U-100 Insulin] 100 UNIT/ML solution 10 units SC TIDCM RF: 0 Toujeo SoloStar U-300 Insulin 300 UNIT/ML insulin pen 32 units SC BID RF: 0 fluoxetine 40 mg capsule 40 mg PO DAILY RF: 0 Vyvanse 70 mg capsule 70 mg PO DAILY RF: 0 Discontinued ondansetron 4 mg tablet,disintegrating 4 mg PO Q8H PRN PRN (Reason: Nausea) Qty: 10 RF: 0 cephalexin 250 mg capsule 250 mg BID RF: 0 Referrals / Follow Up: Care Physician,No Primary [Primary Care Provider] - In 1 Week Disposition Disposition (needs filled in before D/C Order can be placed): Home, Self Care Charges/Coding Visit Charges OBS E&M: 54504 Observation care discharge
[2022-03-02 11:16] LABS: Bedside Glucose 259 mg/dL (74-106)
--- NOTE | 2022-03-02 11:26 | PHA.DC.MR ---
Pharmacy Service has performed discharge medication reconciliation for this patient. The patient's discharge medication list was reviewed for discrepancies and discrepancies were resolved. Spoke to Dr. Hudson, pen needle prescription did not go through to [facility]. She will send new prescription. Home Medications clonazepam 2 mg PO TID 10/22/16 lamotrigine [Lamictal] 100 mg PO DAILY 08/06/19 ondansetron 4 mg PO Q8H PRN PRN #12 tab 08/06/19 Toujeo SoloStar U-300 Insulin 32 units SC BID 02/19/22 Vyvanse 70 mg PO DAILY 02/19/22 fluoxetine 40 mg PO DAILY 02/19/22 insulin lispro [Humalog U-100 Insulin] 10 units SC TIDCM 02/19/22 lancets [Lancets,Ultra Thin] #100 ea 03/02/22 needle (disp) 21 G #1000 ea 03/02/22 pen needle, diabetic [Novofine 32] #100 ea 03/02/22
--- NOTE | 2022-03-02 13:37 | CASEMGMT ---
Addendum entered by Sierra Villeda 03/02/22 14:17: SW asked patient about Marijuana use as her tox screen was positive for Cannabinoids. Patient said she has a medical marijuana card. Patient said she gets drug tested regularly for her Methadone. Sierra DAWSON Original Note: Social Work SW completed assessment with patient. SW also confirmed addresses, phone numbers, and contacts. PCP: None, but patient plans on seeing Dr Cruz at [facility] as she used to see crystal syrup maker: [facility] in [place]-Methadone clinic and Dr Nadja Sahni- Endocrinology Preferred Pharmacy: [facility] Insurance: [facility] Medicaid Prescription Benefit: Yes Living Will/HCPOA: yes, but not on file. Patient states her soon to be ex-, Estrella is her HCPOA LNOK: Mother Dayana, a brother, and a sister Living Arrangements: lives with a friend and her friend's children Transportation: Does not drive, but uses her insurance for medical transportation DME: none HHC/SNF: none Mental Health: Patient has a history of anxiety, depression, Bipolar, Adjustment Disorder, and Agoraphobia. Patient sees a counselor once a month and a Psychiatrist every 2 months at [facility]. Patient feels like her mental health is controlled. Substance Use: Opiate abuse. Patient said she had cancer and became addicted to the pain medication. She is now on Methadone treatment at [facility] in [place]. Patient said she has been clean for almost 2 years now. Patient feels she is doing well with maintaining her sobriety. Patient said she just moved back to [place]. She was not aware of [place] transportation and assistance. SW gave her a [employer] Card which lists all of the resources in [facility]. Patient also needs to see an eye Dr for her Diabetes. SW printed a list of Ophthalmologists and Optometrists in the area that take her insurance. Patient denied any other needs or concerns. Plan: Home Sierra DAWSON
== END 2022-03-02 10:42 | disposition home or self-care (01) ==
LOC: ED 23:01 → PCU 23:21
PROVIDERS: Admitting Provider Hospitalist; Emergency Provider Emergency Medicine; Visit Provider Internal Medicine
DX: E11.65 Type 2 diabetes mellitus with hyperglycemia (principal); F11.20 Opioid dependence, uncomplicated; Z79.4 Long term (current) use of insulin; R11.2 Nausea with vomiting, unspecified; N39.0 Urinary tract infection, site not specified; I10 Essential (primary) hypertension; R53.83 Other fatigue; G93.40 Encephalopathy, unspecified; Z79.899 Other long term (current) drug therapy; R41.82 Altered mental status, unspecified; Z87.891 Personal history of nicotine dependence
CPT/HCPCS: 36415; 70450; 71045; 80048; 80307; 81001; 82009; 82803; 82962; 83036; 83930; 84703; 85025; 93005; 96361; 96372; 96374; 96376; 99218; 99285; J7030; P9612; A4216; G0378; J2405